=== PATIENT | male | born 1960 | race Caucasian/White ===

== ENCOUNTER 2024-04-11 04:14 | Inpatient (IN) | payer MEDICARE, SELFPAY ==
[2024-04-11] VITALS (32 sets, daily range): BP systolic 98–240; BP diastolic 66–131; BMI 38.9
--- NOTE | 2024-04-11 01:06 | EDRN ---
Addendum entered by Lindsay Thakur RN 04/11/24 02:10:
0115 - Per ER Dr Arnold verbal order at bedside, pt was given 50mcg Fentanyl IVP for sedation Correction 50mcg NOT 100mcg
0116 - Per ER Dr Arnold verbal order at bedside, pt was given another 50mcg Fentanyl IVP for sedation Correction 50mcg NOT 100 mcg
Original Note:
0054 - pt was placed on BiPAP at 18/10 100% FiO2 for severe respiratory distress
0056 - pulse oximeter reading 82% on BIPAP 18/10 100% FiO2
0058 - Per ER Dr Salgado verbal order at bedside, pt given 20mg Etomidate IVP at this time
0059 - Per ER Dr Salgado verbal order at bedside, pt was given 150mg Succinylcholine at this time
0102 - pt was intubated with 7.0 ET tube 24cm at the lip at this time
0110 - EMS stated they spoke with this pts who states this pt has no known allergies and only PMH is hypertension and smoking cigarettes
0113 - Per ER Dr Arnold verbal order at bedside, pt was given 2 mg Ativan IVP for sedation
0115 - Per ER Dr Arnold verbal order at bedside, pt was given 100mcg Fentanyl IVP for sedation
0116 - Per ER Dr Arnold verbal order at bedside, pt was given another 100mcg Fentanyl IVP for sedation
--- NOTE | 2024-04-11 01:09 | ED.GENMED ---
History of Present Illness
General
Chief Complaint: Breathing Problem
Source: family and ambulance crew
Time Seen by Provider: 04/11/24 01:06
History of Present Illness
History of Present Illness:
63-year-old male presents emergency department with reported sudden onset of shortness of breath approximately 45 minutes prior to presentation. Upon medic arrival, patient was tachypneic in moderate respiratory distress. He was initially placed
on nasal cannula and then required nonrebreather. They did try to apply CPAP which was unsuccessful as patient pulled it off. History not available from patient as he is not speaking at this time.
Note Case also discussed with patient's partner, Marta, who called 911. She states that patient is a longtime smoker, does not drink alcohol or use drugs. She is unaware of his prior medical history but states that he 'never' sees a doctor. She
does state that he takes medications, although she does not know what they are for. She was asked to go home to retrieve them which she will do at this time. She states that tonight he turned to her and said that he was having trouble breathing
and that she needed to call for help. This was a rather abrupt onset of symptoms. Patient is retired, inactive,' does not take care of himself'.
Past History
Past History
ED Past Medical History: Other (Unknown at this time)
Social History
Tobacco: Smoker
Alcohol: None
Drug: None
Personal: Partner
Phy Exam
Physical Exam
Physical Exam:
GENERAL: Alert , in severe respiratory distress
EYE: pupils equal and reactive
NECK: Supple, no significant adenopathy.
ENT: o/p clr, mmm.
CARDIAC: Regular rate and rhythm .
LUNGS: Equal breath sounds bilaterally, diffuse wheezing with scattered rhonchi, no stridor
ABDOMEN: Soft, without focal tenderness, no r/g
NEUROLOGICAL: Alert but not following commands (due to respir distress), maee
SKIN: Warm and dry, skin intact.
MUSCULOSKELETAL: 1+ bilat le edema, well perfused.
PSYCH: nonverbal at this time
Scores
Heart Failure Risk
Heart Failure Risk Score: Not Applicable
Course
Orders/Labs/Results
Orders:
Orders
04/11/24 00:51
EKG [Electrocardiogram (*1)] Urgent
Reason for Study: Shortness of Breath
04/11/24 00:52
EKG- Treatment ONCE
CXR [CR Chest Portable - 1 View] Urgent
Comment:
Reason For Exam: short of breath
Reason Study Needs to be Portable: Unable to Transport
04/11/24 00:53
Comprehensive Metabolic Panel Urgent
PTT Urgent
Prothrombin Time Urgent
04/11/24 00:54
Complete Blood Count/With Diff Urgent
Manual Differential Urgent
NT-proBNP Urgent
Troponin I Urgent
04/11/24 00:55
Albuterol Nebs [Ventolin Nebules] 5 mg .ROUTE .STK-MED ONE
04/11/24 01:06
FentaNYL 1,000 MCG/100 ML [Sublimaze] 1,000 mcg in 100 ml IV NOW
Indication:: Deep Sedation
Begin Infusion:: Now
Goal:: RASS </= -3, BIS 40-60, ventilator synchrony
Maximum dose in mcg/hr:: 300
Continue currently infusing dose and titrate:: Yes
Titration Instructions:: Titrate Q30 min until ventilator synchrony, RASS or BIS goal is met.
Titration Instructions:: If RASS >/= -2 or BIS > 60 or ventilator dyssynchrony:
Titration Instructions:: administer bolus dose and increase infusion by 25 mcg/hr.
Titration Instructions:: Administer analgesia bolus dose(s) & titrate analgesia prior to
Titration Instructions:: adjusting sedation.
Over-sedation Instructions:: if BIS < 40 and pt is synchronous with ventilator, decrease infusion by
Over-sedation Instructions:: 25 mcg/hr every 2 hours until BIS = 40-60.
Over-sedation Instructions:: Do not wean infusion to off if patient is receiving a continuous NMBA or
Over-sedation Instructions:: has received a bolus dose of NMBA within the past 3 hours.
Notify provider:: immediately if pt exhibits signs/symptoms of chest wall rigidity,
Notify provider:: hemodynamic instability, or agitation/pain despite maximum dosing.
Additional Instructions:: Patient MUST be mechanically ventilated.
Fentanyl Citrate/Pf [Sublimaze] 100 mcg IV NOW STA
Fentanyl Citrate/Pf [Sublimaze] 50 mcg IV [id number] PRN
04/11/24 01:07
Rocuronium [place] [Rocuronium] 100 mg IV Q1HPRN PRN
04/11/24 01:08
Cardiac Monitoring- Treatment ONCE
04/11/24 01:10
Albuterol Sulfate [Ventolin Nebules] 7.5 mg INH R NOW STA
Dexamethasone Sod Phosphate [Decadron] 10 mg IV NOW STA
Ipratropium/Albuterol Sulfate [Duoneb] 3 ml INH R NOW STA
04/11/24 01:12
Lorazepam [Ativan] 2 mg .ROUTE .STK-MED ONE
04/11/24 01:15
Carboxymethylcellulose [Refresh Celluvisc Gel] 1 drops OPHTH Q12H
04/11/24 01:21
CT Head W/o Iv Contrast Urgent
Comment:
Reason For Exam: resp distress, nonverbal
04/11/24 01:53
Aspirin 300 mg RECTAL NOW STA
Furosemide [Lasix] 40 mg IV NOW STA
04/11/24 01:54
CT Chest Pe Study Urgent
Comment:
Reason For Exam: resp distress
04/11/24 01:55
COVID-19 Antigen Urgent
Source: Nasal Swab
Influenza A+B Rapid Molecular Urgent
ALESSANDRO Source: Nasal Swab
Specimen Description:
04/11/24 01:57
Fentanyl Citrate/Pf [Sublimaze] 100 mcg IV NOW STA
04/11/24 02:00
Flush (0.9% Sodium Chloride) [Flush (Nss)] See Dose Instructions IV PER PROTOCOL
Rocuronium [place] [Rocuronium] 500 mg 0.9% Sodium Chloride 250 ml [Nss] 200 ml IV PER PROTOCOL
04/11/24 02:57
Piperacillin/Tazo 4.5 Gram [Zosyn] 4.5 gram in 100 ml IV NOW
04/11/24 03:37
Admit/Transfer Patient As Directed
Co-Sign Provider:
Level of Care: Inpatient admission
Assign to:: ICU
Physician / Group: Hospitalist
Diagnosis: Acute Respiratory failure
Reason for Hospitalization: Acute respiratory failure
Expected length of stay greater than two midnights?: Yes
ELOS- Estimated Length of Stay in days: 2
I certify the patient meets the requirements for IP care: Yes
04/11/24 03:38
Code Status As Directed
Resuscitation Status: Full Code
PRN Pain Medication Management As Directed
May give lesser potent ordered pain med per pt: Yes
preference::
Protocol:: Medication orders for pain may be administered in a
manner that supports deferring to patient preference
when the pt is:
- Requesting an ordered lesser potent pain medication.
Least to most potent pain medications are defined
as: acetaminophen < NSAID < tramadol < opioids
(morphine, oxycodone, hydromorphone).
- Requesting a lesser dose of the same medication IF
ORDERED.
- Requesting a less intrusive route of administration
if both routes are prescribed by the provider (PO <
IV).
04/11/24 03:45
ABG [Arterial Blood Gas] Stat
%Oxygen/Room Air: 100
04/11/24 04:37
Acetaminophen [Tylenol Oral Solution] 650 mg TUBE Q4HPRN PRN
FentaNYL 1,000 MCG/100 ML [Sublimaze] 1,000 mcg in 100 ml IV PER PROTOCOL
Indication:: Deep Sedation
Begin Infusion:: Now
Goal:: RASS </= -3, BIS 40-60, ventilator synchrony
Maximum dose in mcg/hr:: 300
Continue currently infusing dose and titrate:: Yes
Titration Instructions:: Titrate Q30 min until ventilator synchrony, RASS or BIS goal is met.
Titration Instructions:: If RASS >/= -2 or BIS > 60 or ventilator dyssynchrony:
Titration Instructions:: administer bolus dose and increase infusion by 25 mcg/hr.
Titration Instructions:: Administer analgesia bolus dose(s) & titrate analgesia prior to
Titration Instructions:: adjusting sedation.
Over-sedation Instructions:: if BIS < 40 and pt is synchronous with ventilator, decrease infusion by
Over-sedation Instructions:: 25 mcg/hr every 2 hours until BIS = 40-60.
Over-sedation Instructions:: Do not wean infusion to off if patient is receiving a continuous NMBA or
Over-sedation Instructions:: has received a bolus dose of NMBA within the past 3 hours.
Notify provider:: immediately if pt exhibits signs/symptoms of chest wall rigidity,
Notify provider:: hemodynamic instability, or agitation/pain despite maximum dosing.
Additional Instructions:: Patient MUST be mechanically ventilated.
Guaifenesin Solution [Robitussin] 200 mg TUBE Q4HPRN PRN
Ipratropium/Albuterol Sulfate [Duoneb] 3 ml INH R Q4HPRN PRN
Labetalol HCl [Trandate] 10 mg IV Q6HPRN PRN
Ondansetron Injectable [Zofran] 4 mg IV Q6HPRN PRN
04/11/24 04:37
Echo 2D MMode Color/Doppler Routine
Reason for Study: hypoxic failure, CHF
CARDIOLOGY CONSULT Routine
Consulting Provider: Tony Vizcarra
Was physician already notified: No
Reason for consult: hypoxic respiratory failure, CHF and COPD, unknown prior history
Consult Notification Routine
Specialty to Notify: Cardiology
Date consulting provider notified: 04/11/24
Time consulting provider notified: 08:50
Notified:: Other
Comment: tiger text
Consult Notification Routine
Specialty to Notify: Pulmonary
Date consulting provider notified: 04/11/24
Time consulting provider notified: 08:50
Notified:: Other
Comment: [employer] text
PULMONARY CONSULT Routine
Consulting Provider: Ugo Tejeda
Was physician already notified: No
Reason for consult: acute resp failure on vent
Activity As Directed
Activity Level: Out of Bed-Early Mobility
Gastrointestinal Tubes As Directed
Type: [place] sump
To suction?: No
Irrigate tube?: Yes
Irrigant: Purified/Distilled Water
Frequency: Q4H
Amount in mls: 30
Irrigation Directions: Irrigate Q4H and PRN
I&O [Intake/ Output] As Directed
Frequency: Per unit guidelines
Intake/ Output As Directed
Frequency: Per unit guidelines
Vital Signs As Directed
Frequency: Per unit guidelines
Weight As Directed
Frequency: Daily
Weight As Directed
Frequency: Once
Comment: on admission
Pulse Ox/cont/shift [RESP] Routine
Quantity: 1
Smoking Cessation Counseling [RESP] Routine
Ventilator Initial Settings [RESP] Routine
Tidal Volume: 500
Rate: 14
FIO2: 100
PEEP: 5
Pt Eval And Treat Routine
Activity Level: With Assistance
DX Deep Vein Thrombosis Video Routine
04/11/24 05:17
ABG [Arterial Blood Gas] IN AM
%Oxygen/Room Air: 100
04/11/24 05:22
Basic Metabolic Panel IN AM
Cardiovascular Evaluation IN AM
Complete Blood Count/No Diff IN AM
Hemoglobin A1c [Glycohemoglobin (HgbA1c)] IN AM
Lactic Acid IN AM
Procalcitonin IN AM
PCT Algorithmm Indication: Respiratory
Prothrombin Time IN AM
Troponin I Q6H
MRSA Screen Routine
ALESSANDRO Source: Nose
Specimen Description:
04/11/24 Breakfast
NPO
Allow oral meds: No
Allow clear liquids: No
MethylPREDNISolone PF [Solu-Medrol Pf] 40 mg IV Q6H
04/11/24 06:13
Legionella Urinary Antigen Routine
ALESSANDRO Source: Urine
Specimen Description:
04/11/24 08:00
Budesonide [Pulmicort] 0.5 mg INH R BID
Cefepime HCl [Maxipime] 2,000 mg IV Q8H
Furosemide [Lasix] 40 mg IV BID AT 0800,1600
Ipratropium/Albuterol Sulfate [Duoneb] 3 ml INH R QID
Nicotine [Nicoderm Transdermal] 21 mg TRANSDERM DAILY
04/11/24 11:43
Troponin I Q6H
04/11/24 18:00
Enoxaparin Sodium [Lovenox] 40 mg SC QPM
04/11/24 18:13
Troponin I Q6H
Abnormal Lab Results
04/11/24 04/11/24 04/11/24
00:53 00:54 03:45
WBC 21.9 H 10^3/uL
(4.8-10.8)
RBC 6.12 H 10^6/uL
(4.70-6.10)
Hgb 19.5 H g/dL
(13.0-18.0)
Hct 58.0 H %
(39.0-52.0)
MCV 94.8 H fL
(80.0-94.0)
MCH 31.9 H pg
(27.0-31.0)
MPV 11.1 H fL
(7.4-10.4)
Abs Neuts (Manual) 11.3 H 10^3/uL
(1.4-6.5)
Band Neutrophils 4 H %
(0-3)
Monocytes (Manual) 13 H %
(2-9)
pH 7.15 L*
(7.35-7.45)
pCO2 76 H* mmHg
(35-48)
Sodium 149 H mmol/L
(135-145)
Glucose 160 H mg/dl
(70-99)
ALT 54 H U/L
(0-50)
Troponin I 0.037 H* ng/ml
04/11/24 00:54
04/11/24 00:53
Vital Signs
Initial and Last Documented VS:
Initial Vital Signs
Pulse Pulse Ox
92 82
04/11/24 00:52 04/11/24 00:52
Last Documented Vital Signs
Temp Pulse Resp BP Pulse Ox
98.1 F 108 22 141/62 96
04/13/24 07:57 04/13/24 07:30 04/13/24 07:30 04/13/24 00:04 04/13/24 08:00
Procedures
Intubations
Procedure completed by: judi Arnold
Method of Intubation: glidescope
Tube size (cm): 7.0
Placement confirmed by: auscutation, CXR, capnography and direct visualization
Breath sounds after intubation: equal
Additional information:
Attempted by me, pt suctioned, still not able ot visualize cords...Dr Arnold assisted and was able to intubate
*Critical Care Note
Total Time (30-74mins, 75-104mins- exclusive of procedures): 30
Update Note
Update Note:
Patient presents to the Emergency Department with ___respiratory distress
Number and Complexity of Problems Addressed at the Encounter
� Chronic conditions affecting care:
� Acute Exacerbation and/or Progression of Chronic Illness:
� Differential Diagnosis includes: But not limited to COPD exacerbation, pneumonia, heart failure, ACS, etc. etc.
Amount and/or Complexity of Data to be Reviewed and Analyzed
� I performed an independent evaluation of and my interpretation is:
EKG: Read by me, sinus tachycardia, slight elevations of ST segment in V1 and V2 not consistent with ST RAKESH, T wave inversions laterally
CT:
Xrays:
Laboratory Studies:
Other:
� Review of other/old records reveals: None available
� Clinical information was obtained by an independent historian: yasmani Lozano
� Prescriptions/Medications Considered but not given:
� Further testing considered but not performed:
Risk of Complications and/or Morbidity or Mortality of Patient Management
� Social determinants of health affecting care:
� Discussion with other providers (PCP, Hospitalists, Consultants, etc):
� Escalation of care including admission/observation vs risk of discharge considered: Note: initially tried bipap, however after short trial, no improvement----decision then to intubate.
Further history from Marta his partner 1:54 AM she called me and told me some of the medications he is on which suggest the patient has a history of hypercholesterolemia as he is on a statin as well as a history of hypertension.
ED Attending Note
-
Portions of this chart may have been created with voice recognition software.� Occasional wrong word or��sound alike� substitutions may have occurred due to the inherent limitations of voice recognition software.
Discharge Plan
Departure
Patient Disposition: Admit
Date of Disposition: 04/11/24
Time of Disposition: 03:21
Admit to: ICU
Admit to doctor: scooter
Presentation/result/management discussed w/ accepting MD/DO: Hospitalist
Discharge Problem:
Respiratory failure
Interventions
Interventions:
*ED COVID-19 Vaccine History Last Done: 04/11/24 04:56
*Nursing Disposition Last Done: 04/11/24 04:56
ED- Cardiac Assessment Last Done: 04/11/24 02:15
ED- Pulmonary Assessment Last Done: 04/11/24 02:15
Discharge Date and Time
Discharge Date/Time: 04/11/24 04:57
[2024-04-11 01:14] LABS: ALT (SGPT) 54 U/L (0-50); AST (SGOT) 56 U/L (17-59); Albumin 4.9 g/dl (3.5-5.0); Alkaline Phosphatase 71 U/L (38-126); Blood Urea Nitrogen 14 mg/dl (9-20); Calcium 9.4 mg/dl (8.4-10.2); Carbon Dioxide 26 mmol/L (22-30); Chloride 106 mmol/L (98-107); Glucose 160 mg/dl (70-99); Potassium 3.9 mmol/L (3.5-5.1); Sodium 149 mmol/L (135-145); Total Bilirubin 1.1 mg/dl (0.2-1.3); Total Protein 7.5 g/dl (6.3-8.2); eGFR > 60.00
[2024-04-11 01:20] LABS: INR 1.14; PT 14.5 Sec (11.4-14.6)
[2024-04-11 01:21] LABS: APTT 29.8 Sec (23.4-35.0)
[2024-04-11 01:25] LABS: Hemoglobin 19.5 g/dL (13.0-18.0); Mean Corp Hgb Conc. 33.6 g/dL (33.0-37.0); Mean Corpuscular Hgb 31.9 pg (27.0-31.0); Mean Corpuscular Volume 94.8 fL (80.0-94.0); Mean Platelet Volume 11.1 fL (7.4-10.4); Platelet Count 280 10^3/uL (130-400); Red Blood Cell Count 6.12 10^6/uL (4.70-6.10); White Blood Cell Count 21.9 10^3/uL (4.8-10.8)
[2024-04-11] MEDS: SUBLIMAZE 100 IV ×2 (01:26→05:32)
[2024-04-11 01:28] LABS: NT-proBNP 1740 pg/ml; Troponin I 0.037 ng/ml
[2024-04-11] MEDS: DECADRON 10 MG IV (01:28)
[2024-04-11 01:38] LABS: Absolute Neutrophils -Man Diff 11.3 10^3/uL (1.4-6.5); Band Neutrophils 4 % (0-3); Eosinophils 5 % (0-6); Lymphocytes 26 % (20-51); Monocytes 13 % (2-9); Segmented Neutrophils 48 % (42-75)
[2024-04-11 01:39] LABS: Atypical Lymphocytes 4 %; Normal RBC Morphology Yes; Platelets Checked Yes; Total Cells Counted 100
[2024-04-11] MEDS: DUONEB 3 ML INH ×5 (01:53→19:46)
[2024-04-11] MEDS: VENTOLIN NEBULES 7.5 MG INH (01:53)
[2024-04-11] MEDS: SUBLIMAZE 100 MCG IV (02:05)
[2024-04-11] MEDS: LASIX 40 MG IV ×3 (02:09→15:50)
[2024-04-11 02:17] LABS: COVID-19 Antigen Negative (Negative)
[2024-04-11] MEDS: SUBLIMAZE 50 MCG IV (02:40)
[2024-04-11] MEDS: ZOSYN 100 IV (03:04)
[2024-04-11 03:56] LABS: HCO3 26.5 mmol/L (21-28); O2 Saturation % 97.8 % (94-98); PO2 99 mmHg (83-108)
[2024-04-11 03:58] LABS: O2 Therapy 100%; PCO2 76 mmHg (35-48); pH 7.15 (7.35-7.45)
--- NOTE | 2024-04-11 04:09 | HPS.HSE ---
Family Physician
-
Family Physician: NOT KNOW UNKNOWN - PT DOES
Chief Complaint
-
Respiratory distress
History of Present Illness
Patient was intubated at the time I saw him. There were no available next of kin or caregivers. He was unable to provide any history. History obtained from EMS, ED records.
Patient is a to have a history of longstanding smoking, hypertension, poor follow-up and otherwise unknown. He has been living with a significant other recently. She is unaware of the full-scale health status but states that he smokes, does not
drink and does not see medical research scientist. He does take medications but she is unsure what and how much. She is to return to the hospital with the bottles of his current medications/prescriptions. He has no knowledge of any recent
hospitalizations, antibiotic use or exacerbations of underlying chronic conditions.
She stated that appeared to be in acute onset of respiratory problems. She awoke in and stated that she had trouble breathing and she needed to call for help immediately. When EMS arrived he was conversational but was obviously in some respiratory
distress. He was initially placed on oxygen but continued to have desaturation and was placed on nonrebreather. He was trialed on BiPAP but patient did not tolerate it was combative and pulling of lines and tubes. He was placed back on the
nonrebreather and immediately brought to the emergency department. Initial pulse ox on nonrebreather was about 82 to 85% on arrival. Patient was rapidly intubated at around 1 AM. Assessment during intubation showed no copious pulmonary aspirate.
He was obviously initially hypertensive to 200 systolic prior to intubation.
ECG showed normal sinus rhythm at a rate of 94 left atrial enlargement, T wave inversions in V4 through 6 and poor R wave progression. Initial troponin was 0.037, BNP was elevated at 1740. His COVID test was negative, influenza test was negative.
CT of the head showed no acute intracranial process. He CBC showed white count of 21,000 with 4% bands. Hemoglobin was 19.5 with platelet count of 280. Chemistry showed sodium of 149 potassium 3.9 bicarb of 26 BUN 49 creatinine 1.2 with a glucose
of 160. LFTs were unremarkable.
Chest x-ray shows some linear reticular opacities bilaterally. He had a CT PE which was negative for PE, , There was mild CHF with small bilateral pleural effusions, he had bilateral dependent upper and lower lobe opacities possibly atelectasis,
alveolar edema multifocal infection. There was a small pericardial effusion. Cardiomegaly was noted with severe coronary calcifications.
Status post intubation in the emergency department. Oxygenation 100% FiO2 is around 96%. Blood pressure was stable to elevated on fentanyl drip. ABG was 7.
Medical History
Past Medical History
Past Medical History: Reports Other (Unable to determine at this time)
Past Surgical History: Reports Other (Unable to determine)
Social History
Tobacco: Smoker
Alcohol: None
Drug: None
Personal: Partner
Living: With Family
Employment: Other (Unknown)
Family History
Family History: Unable to Obtain
Allergies / Home Medications
Allergies reflects when Allergies were last updated in [facility].
Home Medications with original date entered in [facility]
Allergy/Medication List:
Allergies
Allergy/AdvReac Type Severity Reaction Status Date / Time
No Known Allergies Allergy Verified 04/11/24 01:31
NO KNOWN HOME MEDICATIONS
If medication reconciliation has not been performed, why?: Unresponsive
Review of Systems
-
Unable to obtain full review of systems at this time due to: Patient Intubation
Physical Exam
Vital Signs
Vital Signs
Temp Pulse Resp BP Pulse Ox
97.4 F 115 15 172/99 95
04/11/24 01:51 04/11/24 03:15 04/11/24 03:15 04/11/24 03:15 04/11/24 03:15
Physical Exam
General: Well Nourished and Intubated
HEENT: NormoCephalic, Anicteric, Moist mucous membranes, Atraumatic and No Ptosis
Respiratory: Clear and Other (prolonged expiratory phase on Vent)
Cardiac: S1/S2 and Tachycardia
Breast: Deferred by me
GI: Soft, Non Tender, Non Distended and Normal Bowel Sounds
Rectal: Deferred by Provider
Genito-urinary: Deferred by me
Musculoskeletal: No Clubbing, No Cyanosis and No Edema
Skin: Warm
Neuro: Sedated
Hematologic/Lymphatic: No Lymphadenopathy
Laboratory Results
-
04/11/24 00:54
04/11/24 00:53
Laboratory Results
PT 14.5 Sec (11.4-14.6) 04/11/24 00:53
INR 1.14 04/11/24 00:53
APTT 29.8 Sec (23.4-35.0) 04/11/24 00:53
pH 7.15 (7.35-7.45) L* 04/11/24 03:45
pCO2 76 mmHg (35-48) H* 04/11/24 03:45
pO2 99 mmHg (83-108) 04/11/24 03:45
HCO3 26.5 mmol/L (21-28) 04/11/24 03:45
Total Bilirubin 1.1 mg/dl (0.2-1.3) 04/11/24 00:53
AST 56 U/L (17-59) 04/11/24 00:53
ALT 54 U/L (0-50) H 04/11/24 00:53
Alkaline Phosphatase 71 U/L (38-126) 04/11/24 00:53
Troponin I 0.037 ng/ml H* 04/11/24 00:54
Data Reviewed
-
Diagnostic Radiology: Image Personally Visualized and interpreted
CT Scan: Report Reviewed by me
Medical Tests (Nuc Med, Echo, EKG etc): Image Personally Visualized and interpreted
Lab Data: Labs Reviewed by me
Impression/Plan
-
IMPRESSION:
63-year-old with history at least of hypertension otherwise unknown past medical history who presented with acute hypoxic hypoxic respiratory failure requiring intubation. He appears to progressed rapidly from complaints of shortness of breath to
severe hypoxia requiring intubation. He has history of smoking, hypercapnia and hypoxia, chest tightness-on the ventilator suggest a component of airway disease likely COPD exacerbation stemming from either infectious or pulmonary edema. The rapid
onset and the arrival quite hypertensive also raises the possibility of flash pulmonary edema in the setting of uncontrolled hypertension/hypertensive emergency. His troponin is 0.037, ECG without acute ischemic changes or arrhythmia makes NSTEMI
from primary acute coronary obstruction less likely. He does have findings consistent with congestive heart failure including pulmonary edema, bilateral effusion, pericardial effusion and elevated BNP. Similarly he also has evidence of possible
infection triggering the COPD exacerbation and driving into heart failure. He has significant leukocytosis with 4% bands. Bilateral pulmonary opacities could be infectious in origin. There was no PE on the CT PE study. COVID-19 was negative.
Influenza was negative.
PLAN:
1. COPD/PNA - COPD exacerbation with possible multifocal pneumonia. Ventilated with 1 risk factor for resistant gm negative and no known MRSA risk factors at this time. Airmovement appeared to improve after 1 hour of continous nebs.
- admit to icu
- start cefepime 1g q 8 for now
- sent sputum for gm stain and culture, mrsa screen
- blood cultures if spike fever
- legionella ag
- Solumedrol 40 q 6, DUONEB q 6 H and q 4 prn, started ICS.
- SaO2 goal > 92, pH > 7.3
- GI PPX, Sedation on fentanyl, consider precedex
- advanced nursing professor consulted
2. CHF - Likely long standing hypertension, possibly flash pulmonary edema. BNP 1700. Trop 0.037. ECG NSR, TWI in V4-6. Pericardial effusion w/o tamponade. Small pleural effusions. No significant peripheral edema.
- trend troponin
- lasix 40mg iv q 12 for now, daily weights with i&os
- check tsh, lipid panel, a1c
- echo
- cardiology consultation
3. Hypertensive emergency - No acute intracranial process or focal deficit
- lasix as above
- labetolol prn for now, goal SBP < 180 for now
- cardiology consulted
4. Tobacco dependence
- nicotine patch
DVT PPX - lovenox sq
Code status - Full Code provisionally
Note - Significant order to return to hospital with additional history that may help disposition.
[2024-04-11 05:27] LABS: B.E. -2.3 mmol/L; HCO3 25.1 mmol/L (21-28); O2 Saturation % 91.7 % (94-98); PCO2 51 mmHg (35-48); PO2 61 mmHg (83-108)
[2024-04-11 05:29] LABS: O2 Therapy 100%
[2024-04-11] MEDS: DIPRIVAN 100 IV ×5 (05:31→23:43)
--- NOTE | 2024-04-11 05:43 | PTCARENOTE ---
Pt. arrived from ED approx 0500.
Arrived on 250 mcg fentanyl, RASS +3, sitting up in bed.
RX ordered and applied, fent decreased to 50 mcg, Diprivan ordered and initiated at 10 mcg.
Salg[place] inserted, Labs sent including ABG, [place] placed, NG tube placed.
Intubated in ED, ABG showed acidosis, vent settings changed to A/C 20/500/8/100. [id number].
[2024-04-11 05:44] LABS: Hematocrit 48.5 % (39.0-52.0); Hemoglobin 16.7 g/dL (13.0-18.0); Mean Corp Hgb Conc. 34.4 g/dL (33.0-37.0); Mean Corpuscular Hgb 30.5 pg (27.0-31.0); Mean Corpuscular Volume 88.5 fL (80.0-94.0); Mean Platelet Volume 10.4 fL (7.4-10.4); Platelet Count 214 10^3/uL (130-400); Red Blood Cell Count 5.48 10^6/uL (4.70-6.10); Red Cell Dist. Width 13.9 % (11.5-14.5); White Blood Cell Count 13.8 10^3/uL (4.8-10.8)
--- NOTE | 2024-04-11 05:48 | PTCARENOTE ---
Unable to complete Handoff validation w/ off going ED RN due to declining patient status, pt. immediately placed on ICU monitor upon arrival.
[2024-04-11 05:54] LABS: INR 1.11; PT 14.1 Sec (11.4-14.6)
[2024-04-11 06:05] LABS: Lactic Acid 1.3 mmol/L (0.7-2.0)
[2024-04-11 06:06] LABS: Blood Urea Nitrogen 16 mg/dl (9-20); Calcium 8.6 mg/dl (8.4-10.2); Carbon Dioxide 24 mmol/L (22-30); Chloride 107 mmol/L (98-107); Estimated Creatinine Clearance 86 ml/min; Glucose 135 mg/dl (70-99); HDL Cholesterol 39 mg/dl; LDL Cholesterol, Calculated 114 mg/dl; Potassium 4.5 mmol/L (3.5-5.1); Sodium 144 mmol/L (135-145); Total Cholesterol 174 mg/dl (50-199); Triglyceride 107 mg/dl (10-149); Triglycerides 107 mg/dl (10-149); Very Low Density Lipoprotein 21 mg/dl (0-30); eGFR > 60.00
[2024-04-11 06:17] LABS: Troponin I 0.237 ng/ml
[2024-04-11 06:19] LABS: Procalcitonin 0.15 ng/ml (0.0-0.25)
--- NOTE | 2024-04-11 06:22 | W.PN.UPDATE ---
Update Note
Progress Note Update
Procedure Note: Arterial Line�
� Right Wrist Arrow 20 (08/18)�
Diagnosis:��Acute respiratory Failure
IV Line Comments: Uneventful Procedure�
Ishmael's test completed pre-procedure: Yes�
A-Line Comments: Sterile technique as per standard protocol, Ultrasound guided insertion�
Functioning A-line in situ: Yes�
A-line Insertion Start Time:��06
A-line in at:��0610
[2024-04-11 06:34] LABS: TSH Reflex To Free T4 0.77 uIU/ml (0.47-4.68)
--- NOTE | 2024-04-11 06:35 | PTCARENOTE ---
NG tube placed, waiting CXR.
[2024-04-11] MEDS: MAXIPIME 2000 MG IV ×2 (07:26→15:50)
[2024-04-11] MEDS: PROTONIX IV 40 MG IV (07:26)
[2024-04-11] MEDS: SOLU-MEDROL PF 40 MG IV ×3 (07:26→20:25)
[2024-04-11] MEDS: NICODERM TRANSDERMAL 21 MG TRANSDERM (07:27)
[2024-04-11] MEDS: STERILE WATER FOR INJECTION 10 ML IV ×2 (07:27→15:50)
--- NOTE | 2024-04-11 07:44 | CON.CAR ---
Addendum entered and electronically signed by Farooq Oviedo MD 04/11/24 12:40:
ECHO 04/11/24:
- Left ventricle is moderately dilated. Mild concentric left ventricular hypertrophy.
- Moderately- severely reduced left ventricular systolic function. Global hypokinesis. LVEF 30-35%
- Stage II diastolic dysfunction suggestive of abnormal relaxation and increased filling pressures.
- Mildly dilated left atrium.
- Mild to moderate mitral regurgitation.
- Mild to moderate aortic regurgitation
- Small pericardial effusion without evidence of hemodynamic compromise.
- Pleural effusion present.
Addendum entered and electronically signed by Farooq Oviedo MD 04/11/24 09:36:
Admitted April 10, 2024 with acute onset shortness of breath hypoxia and respiratory failure requiring ventilatory support/intubation and mechanical ventilation.
Additionally on presentation markedly hypertensive/hypertensive emergency.
Cardiology has been consulted over concern for congestive heart failure as well as hypertensive emergency.
No further history is available from the patient as he is intubated and sedated.
On exam he is intubated and sedated appears comfortable.
Regular rate and rhythm with normal S1 and S2, no S3 no S4 there is a grade 1/6 apical holosystolic murmur no rubs
Lungs coarse breath sounds bilaterally without wheezes
Abdomen is soft and nondistended
Extremities show +1 bilateral lower extremity edema
ECG 1 (presentation) sinus rhythm with biatrial abnormality and inferolateral ST abnormality concerning for inferolateral ischemia
ECG 2 sinus rhythm with biatrial enlargement, LVH nonspecific ST and T wave abnormalities inferolateral ST abnormalities have improved
First troponin 0.237
Second troponin 0.237
proBNP 1740
CTA chest no definite pulmonary embolism, there is moderate pericardial effusion described, there is bilateral oral opacification representing subsegmental atelectasis with small pleural effusions. Possible pneumonia
He is critically ill
With intubation and mechanical ventilation as well as a single dose of 40 mg IV Lasix, blood pressure has improved/normalized.
It is likely that marked hypertension was his physiologic response to marked dyspnea. Follow BP and can treat hypertension on an as-needed basis
He likely has at least some component of heart failure and I would continue IV Lasix today.
We will obtain echocardiogram today to evaluate pericardial effusion and to assess for any significant underlying structural heart disease which may be contributing.
Trend troponins
Consideration for eventual ischemic evaluation
Critical care time 55 min
Original Note:
Consultation
Consultation Request
Date/Time Consultation Performed: 04/11/24
Requesting Provider: Dr. Butler
Performing Provider: Bianca Palafox PA-C for Dr. Parag Oviedo
Reason for Consultation: respiratory failure, HTN
Medical History
-
Chief Complaint: SOB
History of Present Illness:
Patient is a 63 yo M who does not routinely follow with doctors per report who presented to ER by EMS for evaluation of SOB. He apparently turned to his roommate/partner last evening and told her he was having trouble breathing and she needed to
call 911. Upon EMS arrival patient was noted to be hypoxic, initially placed on nasal cannula, then NRB. CPAP/Bipap was attempted however patient was unable to tolerate. He was then placed back on NRB and subsequently intubated in ER. He is on
medication for HTN, HLD as OP and has significant smoking history. ProBNP 1700. Also with HTN emergency and elevated troponin. Cardiology consulted for evaluation.
PMH:
HTN
HLD
Tobacco use
Past Medical History
Past Medical History: Other (in HPI)
Social History
Tobacco: Smoker
Alcohol: None
Drug: None
Living: With Roomate (/significant other)
Employment: Retired
Family History
Family History: Unable to Obtain
Allergies / Home Medications
Allergy/AdvReac Type Severity Reaction Status Date / Time
No Known Allergies Allergy Verified 04/11/24 01:31
Review of Systems
-
Unable to obtain full review of systems at this time due to: Patient Intubation
Physical Exam
Vital Signs
Temp Pulse Resp BP Pulse Ox
99 F 83 20 118/69 98
04/11/24 05:04 04/11/24 06:30 04/11/24 06:30 04/11/24 06:00 04/11/24 07:27
Lab Results
04/11/24 05:22
04/11/24 05:22
Troponin I 0.237 ng/ml H* D 04/11/24 05:22
Eut-R-Ooykqlfirfr Pept 1740 pg/ml 04/11/24 00:54
Physical Exam
General: No Apparent Distress and Intubated
HEENT: Normocephalic, Anicteric and Moist Mucous Membranes
Respiratory: Clear and Non Labored Respirations
Cardiac: S1/S2 and Regular Rhythm
GI: Soft, Non Tender, Non Distended and Normal Bowel Sounds
Musculoskeletal: No Clubbing, No Cyanosis and Edema (Trace of B/L LE)
Skin: Warm and Dry
Neuro: Sedated
Impression / Plan
-
Primary Art Critic: none
Assessment:
Presentation with SOB
Acute hypoxic respiratory failure, intubated in ER 04/10/24
Leukocytosis
Suspected PNA/COPD exacerbation
Concern for acute CHF/flash pulm edema
Hypertensive emergency
Elevated troponin
HTN
HLD
Tobacco use
Plan:
-Patient presented with SOB and hypoxia requiring intubation in ER
-remains intubated, sedated at present so history limited at this time
-head CT negative for acute abnormality
-chest CT pending
-proBNP 1740. being diuresed with IV lasix 40mg BID
-trop uptrending, follow to peak.
-EKG from EMS reviewed, SR with possible lateral ST abnormality. will repeat now
-check echo
-will require eventual ischemic evaluation
-received rectal asa in ER. continue asa as able
-LDL 114. would re-initiate statin therapy when able
-follow BPs, currently on low side.
-check TSH
-treatment of PNA per primary service. covid negative
-d/w nursing
Data Reviewed
-
EKG: Tracing Personally Visualized and interpreted
Radiology: Report Reviewed by me
CT Scan: Report Reviewed by me
Labs: Labs Reviewed by me
Old Records: Reviewed
--- NOTE | 2024-04-11 08:30 | PTCARENOTE ---
Rec'd pt at 0700. Pt sedate on Propofol/Fentanyl gtts on vent. Opens eyes and nods head appropriately to verbal stimuli. Monitor SR. Right radial a-line zeroed. fio2 decreased to 80%, pox 97%. +BS, abd soft/nt. [place] sump clamped, flushed as per
orders. Salgado draining yellow urine. Pt repositioned.
--- NOTE | 2024-04-11 08:41 | CON.INTV ---
Consultation
Consultation Request
Date/Time Consultation Requested: 04/11/2024436
Date/Time Consultation Performed: 04/11/2024831
Requesting Provider: Dr. Butler
Performing Provider: Dr. Tejeda
Reason for Consultation: Hypoxia on ventilator
Medical History
-
Chief Complaint: Shortness of breath
History of Present Illness:
63-year-old male tobacco smoker with a past medical history of hypertension + hyperlipidemia who presented with sudden onset of shortness of breath. No chest pain reported. EMS arrived and patient was very agitated and even removed 2 IVs. He was
placed onto CPAP and tried to remove that mask as well. He was given aspirin albuterol en route and was tolerating 15 L/min via NRB with saturations of 92%. He reportedly had COVID-19 two months ago. History obtained from the patient significant
other and medical records. She apparently awoke and overnight prior to arrival and found him having significant shortness of breath and nominal and was called. He was intubated in the ER due to continued respiratory distress. Initial vitals in
the ER showed he was hypertensive to 231/116, saturating 85% on BiPAP, and heart rate 92. Once he was intubated saturations improved to 100%. Initial labs showed leukocytosis of 21.9, Hb 19.5, respiratory acidosis with pH 7.15, pCO2 76, serum
bicarbonate level 26, serum sodium 149, glucose 160, initial troponin 0.037, proBNP elevated at 1740, and procalcitonin negative at 0.15. Urinalysis showed +1 leukocyte esterase and 11�15 urine WBC. COVID-19 antigen was negative, as well as flu
A/B (negative). CXR obtained showed diffusely prominent interstitial markings likely due to interstitial edema versus pneumonitis. CT head showed no acute intracranial abnormality. CTA chest showed no central PE (limited study) with subsegmental
atelectasis with small pleural effusions and bilateral opacification with cardiomegaly, CAD and a moderate pericardial effusion. In the ER he was given albuterol, DuoNebs, Decadron, Lasix 40 mg IV x 1, Zosyn, and then sedated with fentanyl. He was
then brought to the ICU for further care and performance improvement director services consulted for additional management/recommendations.
When I saw this patient, he was intubated on AC/VC at 20/500/8/50%, with PIP: 28 cmH2O, VTe 5 to 1 cc and breathing at 20 breaths/min. Heart rate currently 92, BP via right radial A-line: 146/57 and saturating 92%. Currently sedated on propofol at
20 mcg/kg/min + fentanyl at 50mcg/hr. He easily awakens and even tries to write down his thoughts on a piece of paper. He is in no acute distress.
PMHx: Tobacco smoking history, hypertension, hyperlipidemia, history of COVID-19 reportedly in January 2024
PSHx: Unobtainable
Past Medical History
Past Medical History: Other (Above as per HPI)
Past Surgical History: Other (Above as per HPI)
Social History
Tobacco: Smoker
Alcohol: None
Drug: None
Living: Other (Significant other)
Family History
Family History: Unable to Obtain
Allergies / Home Medications
Allergies
Allergy/AdvReac Type Severity Reaction Status Date / Time
No Known Allergies Allergy Verified 04/11/24 01:31
Review of Systems
-
Unable to Obtain full review of systems at this time due to: Patient Intubation
Vitals / Labs / Diagnostic Testing
Vital Signs
Temp Pulse Resp BP Pulse Ox
97.5 F 81 20 118/69 96
04/11/24 08:07 04/11/24 08:45 04/11/24 08:45 04/11/24 06:00 04/11/24 08:45
Lab Data
04/11/24 05:22
04/11/24 05:22
Laboratory Results
04/11/24 04/11/24 04/11/24
00:53 03:45 05:17
PT 14.5
INR 1.14
APTT 29.8
pH 7.15 L* 7.30 L
pCO2 76 H* 51 H
pO2 99 61 L
HCO3 26.5 25.1
O2 Delivery Level 100% 100%
04/11/24
05:22
PT 14.1
INR 1.11
APTT
pH
pCO2
pO2
HCO3
O2 Delivery Level
Microbiology
04/11/24 06:13 Urine Legionella Urinary Antigen - Final
Negative for Legionella pneumophila Serogroup 1 antigen.
A negative result does not rule out the possiblity of
Legionella infection due to other serogroups or species of
Legionella. Clinical correlation is recommended.
04/11/24 01:55 Nasal Swab Influenza Types A & B ([facility]) - Final
Negative for Influenza A & B, NAAT
Negative results must be combined with clinical observations
and patient history.
Nucleic Acid Amplification test (NAAT)performed on the
[employer] NOW platform.
Diagnostic Testing:
Physical Exam
-
HEENT: Normocephalic, Anicteric and Other (ETT in place)
Cardiovascular: S1/S2 and Peripheral Edema (trace LE edema b/l)
Respiratory: Wheeze (negative), Rales (bilateral), Rhonchi (negative), Non-Labored Respirations and Other (Mechanical breath sounds heard bilaterally)
GI: Soft, Non Distended, Non Tender and Normal Bowel Sounds
Neurology: Tremors (negative) and Other (Sedated but easily arousable and nodding his head yes or no to questions)
Skin: Warm and Dry
General: Respiratory Distress (negative), Comfortable, Chills (negative) and Sweats (negative)
Assessment
-
Assessment: 63-year-old male tobacco smoker with a past medical history of hypertension + hyperlipidemia who presented with sudden onset of shortness of breath. No chest pain reported. EMS arrived and patient was very agitated and even removed 2
IVs. He was placed onto CPAP and tried to remove that mask as well. He was given aspirin albuterol en route and was tolerating 15 L/min via NRB with saturations of 92%. He reportedly had COVID-19 two months ago. History obtained from the patient
significant other and medical records. She apparently awoke and overnight prior to arrival and found him having significant shortness of breath and nominal and was called. He was intubated in the ER due to continued respiratory distress. Initial
vitals in the ER showed he was hypertensive to 231/116, saturating 85% on BiPAP, and heart rate 92. Once he was intubated saturations improved to 100%. Initial labs showed leukocytosis of 21.9, Hb 19.5, respiratory acidosis with pH 7.15, pCO2 76,
serum bicarbonate level 26, serum sodium 149, glucose 160, initial troponin 0.037, proBNP elevated at 1740, and procalcitonin negative at 0.15. Urinalysis showed +1 leukocyte esterase and 11�15 urine WBC. COVID-19 antigen was negative, as well as
flu A/B (negative). CXR obtained showed diffusely prominent interstitial markings likely due to interstitial edema versus pneumonitis. CT head showed no acute intracranial abnormality. CTA chest showed no central PE (limited study) with
subsegmental atelectasis with small pleural effusions and bilateral opacification with cardiomegaly, CAD and a moderate pericardial effusion. In the ER he was given albuterol, DuoNebs, Decadron, Lasix 40 mg IV x 1, Zosyn, and then sedated with
fentanyl. He was then brought to the ICU for further care and performance improvement director services consulted for additional management/recommendations.
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
Impression:
#Acute respiratory failure with hypoxia + hypercapnia due to acute pulmonary edema from hypertensive crisis + ADHF now on mechanical ventilation
#Leukocytosis likely reactive
#Acute pulmonary edema likely due to hypertensive crisis in the setting of acute decompensated heart failure/combined acute HFrEF with diastolic heart failure
#Moderate-size pericardial effusion with small bilateral pleural effusions
#Prediabetes (HbA1c: 5.8 on 04/11/2024)
#Elevated troponin likely due to demand ischemia with type II ND; unable to rule out NSTEMI
#Active tobacco use
#Centrilobular emphysema with suspected COPD
#History of COVID-19 (reported to be positive in 01/2024)
#History of hypertension
#History of hyperlipidemia
Plan:
- On arrival his BP was in the 220-230s1/110s
- This likely was the culrprit for his acute pulmonary edema with sudden severe respiratory distress
- There may be a component of acute decompensated heart failure on top of his HTN-crisis
- Reduce SBP by 25% over this first 24 hrs, then would reduce further from there with eventual BP goal of <140/90
- Would keep goal SBP for today between 160-180mmHg
- Maintain MAP>65
- Continue mechanical ventilation with daily SAT/SBT if clinically appropriate
- Titrate FiO2 and PEEP to keep SpO2 >90-94%
- maintain plateau pressure <30
- Adjust ventilator as needed to optimize pH; check blood gas daily and CXR to assess ETT position
- Diurese and maintain net negative fluid balance, with BP goals as above
- Lightly sedate with goal RASS -1 to -2
- Maintain SpO2 >90-94%
- Continue DuoNebs QID with flovent
- Continue systemic steroids given high suspicion for COPD --> although his current clinical status is due to ADHF and not acute COPD exacerbation, so will try to wean off steroids fairly rapidly
- Low suspicion for pneumonia given his procalcitonin is 0.5; procalcitonin however can sometimes be falsely low initially and then can rise after 24-48 hours so would recheck another level tomorrow
-Given that his urinalysis positive with +1 leukocyte esterase would continue with antibiotics for now with cefepime
-Urine antigens for Legionella + strep pneumonia are both negative
- Continue trending troponin level until it peaks
- Check echo --> shows moderately�severely reduced LVEF with global hypokinesis, EF 30-35% with stage II diastolic dysfunction, mild�moderate MR, mild�moderate AI with small pericardial effusion without evidence of tamponade
- Cardiology consulted and recommendations appreciated
- Replete electrolytes with K>4, Mg>2
- Nicotine patch
- Maintain euglycemia with goal BG 140-180
- Trend H/H and transfuse if needed to keep Hb>7g/dL; keep plt>20k, unless there is concern for bleeding then keep plt>50k
- DVT ppx: LMWH
Critical care statement: A total of 40 minutes of critical care time was provided for this patient today. This includes management of unstable vital signs, evaluation of the patient at bedside, reviewing the patient's pertinent medical records
including radiographs, microbiology, laboratory evaluations, and discussion with primary team, consultants, pharmacy, nutrition, physical therapy, case management, charge nurse, critical care nursing, and respiratory therapy.
Data:
CTA Chest 04/11/2024:
Extremely limited study, as described, without findings to confirm pulmonary embolism to the level of the proximal segmental branches bilaterally.
Bilateral opacification most likely representing subsegmental atelectasis with small pleural effusions. Pneumonia cannot be excluded.
Cardiomegaly, coronary artery calcifications and moderate pericardial effusion.
Enlarged heterogeneous thyroid gland, left lobe larger in size than right.
[2024-04-11 10:19] LABS: Urine Albumin Negative (Neg - Trace); Urine Bilirubin Negative (Negative); Urine Character Clear (Clear); Urine Color Yellow; Urine Glucose Negative (Negative); Urine Ketone Negative (Negative); Urine Leukocyte 1+ (Negative); Urine Nitrite Negative (Negative); Urine Occult Blood Trace (Negative); Urine Urobilinogen Negative (Neg - 1+)
[2024-04-11 10:22] LABS: Glycohemoglobin (HgbA1c) 5.8 % (4.0-5.6)
[2024-04-11 11:01] LABS: Urine Bacteria Few (Negative)
--- NOTE | 2024-04-11 11:14 | PTCARENOTE ---
ECHO being done at bedside. No changes in assessment.
--- NOTE | 2024-04-11 12:38 | W.PN.HOSP.TC ---
Today's Communication/Plan
-
Monitor vital signs
see plan
Intubated and sedated
Continue with antibiotics for now, wean steroids
Lasix
Echocardiogram today
Nonbillable note
Assessment / Plan
Assessment / Plan
General: Well Nourished and Intubated
HEENT: NormoCephalic, Anicteric, Moist mucous membranes, Atraumatic and No Ptosis
Respiratory: Ventilated breath sounds, intubated
Cardiac: S1/S2,RRR
GI: Soft, Non Tender, Non Distended and Normal Bowel Sounds
Musculoskeletal: No Edema
Neuro: Sedated
psych: calm
Acute hypoxic respiratory failure likely multifactorial secondary to acute pulmonary edema from hypertensive crisis and COPD/emphysema exacerbation along with possible pneumonia
Currently intubated and sedated, vent management per pulmonary
wean steroids as tolerated
cw abx for now
- sent sputum for gm stain and culture, mrsa screen
- blood cultures if spike fever
- legionella ag neg; check strep
wean sedation as tolerated
Monitor in ICU
Acute CHF - Likely long standing hypertension, possibly flash pulmonary edema. BNP 1700. Trop 0.037. ECG NSR, TWI in V4-6. Pericardial effusion w/o tamponade. Small pleural effusions. No significant peripheral edema.
- trend troponin
Continue with IV Lasix, echocardiogram 04/11 to assess pericardial effusion
Cardiology following
Prediabetes
A1c 5.8
Monitor
3. Hypertensive emergency - No acute intracranial process or focal deficit
Does not appear to be compliant with medications
- lasix as above
- labetolol prn for now, goal SBP < 180 for now
- cardiology follow
Tobacco dependence
- nicotine patch
DVT PPX - lovenox sq
Code status - Full Code provisionally
Anticipated Discharge: > 48 hours
Subjective/Interval History
-
Date of Service: April 11, 2024
Intubated
Objective Data
-
Labs:
Laboratory Results
04/11/24 04/11/24 04/11/24
00:53 00:54 03:45
WBC 21.9 H
Hgb 19.5 H
Hct 58.0 H
Plt Count 280
PT 14.5
INR 1.14
APTT 29.8
HCO3 26.5
Sodium 149 H
Potassium 3.9
Chloride 106
Carbon Dioxide 26
BUN 14
Creatinine 1.2
Glucose 160 H
Calcium 9.4
Total Bilirubin 1.1
AST 56
ALT 54 H
Alkaline Phosphatase 71
04/11/24 04/11/24
05:17 05:22
WBC 13.8 H
Hgb 16.7
Hct 48.5
Plt Count 214 D
PT 14.1
INR 1.11
APTT
HCO3 25.1
Sodium 144
Potassium 4.5
Chloride 107
Carbon Dioxide 24
BUN 16
Creatinine 1.2
Glucose 135 H
Calcium 8.6
Total Bilirubin
AST
ALT
Alkaline Phosphatase
Vital Signs:
Vital Signs
Temp Pulse Resp BP Pulse Ox
97.4 F 84 20 118/69 97
04/11/24 11:32 04/11/24 11:58 04/11/24 11:58 04/11/24 06:00 04/11/24 11:58
I&O
04/10/24 04/11/24 04/12/24
06:59 06:59 06:59
Intake Total 181.2 / 181.2
Output Total 2395 / 2395
Balance -2213.8 / -2213.8
--- NOTE | 2024-04-11 16:10 | CM ---
Patient intubated with NGT
Dx: Acute resp failure
Hx: +smoker, HTN, HDL, poor follow up with physicians
IA completed. Information obtained by brother Kennedy from [place] who was visiting patient.
States he lives in a [address] condo with his room mate Marta Rose
PLOF: Independent, does not use assistive device, driving
Stated he recently returned from a trip to [place], he stated he had COVID there.
Stated that the patient was originally from [place] & had a PCP in [place], [place] named Dr. Bass
No pharmacy noted.
Noted patient self-pay, no ins card entered - LM with [facility] to assist with insurance.
PT eval ordered
PLAN: CM to continue to follow as patient progresses.
--- NOTE | 2024-04-11 16:33 | PTCARENOTE ---
Pt's brothers in to visit, updated. No changes in pt assessment, Fio2 down to 50%, pox 94%.
[2024-04-11] MEDS: LOVENOX 40 MG SC (17:04)
--- NOTE | 2024-04-11 19:22 | PTCARENOTE ---
Assumed care of pt approx 1900.
Remains Intubated/Sedated. Sedation as follows
-Diprivan 20mcg
-fentanyl 50 mcg
Trending blood pressure off of Arterial line w/ correlation of NIBP. SBP goal of 160-180.
Normocephalic/Atraumatic. Focally intact, neuro assessment altered due to sedation, RASS -1, GCS 13T.
Normothermic, Permissive Hypertensive, pulses present, NSR w/o ectopy.
[2024-04-12] VITALS (9 sets, daily range): BP systolic 148–193; BP diastolic 66; BMI 38.6
[2024-04-12 00:05] LABS: B.E. 0.9 mmol/L; HCO3 25.3 mmol/L (21-28); Ionized Calcium 1.18 mMOL/L (1.15-1.33); O2 Saturation % 98.8 % (94-98); PCO2 39 mmHg (35-48); PO2 104 mmHg (83-108); Potassium 3.6 mMOL/L (3.5-5.1); Sodium 137 mMOL/L (136-145); pH 7.42 (7.35-7.45)
[2024-04-12] MEDS: MAXIPIME 2000 MG IV ×4 (00:37→23:57)
[2024-04-12] MEDS: STERILE WATER FOR INJECTION 10 ML IV ×4 (00:38→23:57)
[2024-04-12] MEDS: SUBLIMAZE 100 IV (02:05)
[2024-04-12] MEDS: DIPRIVAN 100 IV ×3 (02:05→20:54)
--- NOTE | 2024-04-12 02:14 | PTCARENOTE ---
ABG completed, Fio2 decreased on vent.
No further change in patient assessment.
[2024-04-12] MEDS: SOLU-MEDROL PF 40 MG IV ×3 (04:33→21:12)
[2024-04-12 04:39] LABS: HCO3 22.6 mmol/L (21-28); O2 Saturation % 99.5 % (94-98); PCO2 34 mmHg (35-48); PO2 105 mmHg (83-108); pH 7.43 (7.35-7.45)
--- NOTE | 2024-04-12 04:50 | PTCARENOTE ---
No change in pt. Assessment.
[2024-04-12 04:55] LABS: % Basophils 0.1 % (0-2); % Immature Granulocytes 0.9 % (0-0.5); % Lymphocytes 7.3 % (20.5-51.1); % Monocytes 7.3 % (1.7-9.3); % Neutrophils 84.4 % (42.2-75.2); Absolute Immature Granulocytes 0.1 10^3/uL (0-0.05); Absolute Lymphocytes 1.1 10^3/uL (1.2-3.4); Absolute Monocytes 1.1 10^3/uL (0.1-0.6); Absolute Neutrophils 12.2 10^3/uL (1.4-6.5); Hematocrit 45.9 % (39.0-52.0); Mean Corp Hgb Conc. 34.9 g/dL (33.0-37.0); Mean Corpuscular Hgb 31.3 pg (27.0-31.0); Mean Corpuscular Volume 89.8 fL (80.0-94.0); Mean Platelet Volume 10.9 fL (7.4-10.4); Nucleated Red Blood Cells % 0 % (-); Platelet Count 199 10^3/uL (130-400); Red Blood Cell Count 5.11 10^6/uL (4.70-6.10); White Blood Cell Count 14.4 10^3/uL (4.8-10.8)
[2024-04-12 05:16] LABS: ALT (SGPT) 46 U/L (0-50); AST (SGOT) 38 U/L (17-59); Albumin 3.7 g/dl (3.5-5.0); Alkaline Phosphatase 54 U/L (38-126); Blood Urea Nitrogen 30 mg/dl (9-20); Calcium 9.2 mg/dl (8.4-10.2); Carbon Dioxide 23 mmol/L (22-30); Chloride 106 mmol/L (98-107); Estimated Creatinine Clearance 73 ml/min; Glucose 160 mg/dl (70-99); Phosphorus 4.7 mg/dl (2.5-4.5); Sodium 141 mmol/L (135-145); Total Bilirubin 0.6 mg/dl (0.2-1.3); Total Protein 5.9 g/dl (6.3-8.2); eGFR 55.78
[2024-04-12 05:26] LABS: NT-proBNP 1410 pg/ml
[2024-04-12] MEDS: DUONEB 3 ML INH ×2 (07:33→19:43)
[2024-04-12] MEDS: PROTONIX IV 40 MG IV (08:00)
[2024-04-12] MEDS: NSS (PRESERVATIVE FREE) 10 ML IV (08:00)
[2024-04-12] MEDS: LASIX 40 MG IV (08:00)
[2024-04-12] MEDS: MIRALAX 17 GRAMS TUBE (08:00)
[2024-04-12] MEDS: NICODERM TRANSDERMAL 21 MG TRANSDERM (08:00)
--- NOTE | 2024-04-12 08:17 | W.PN.INTV ---
Today's Communication / Plan
Recommendations
Maintain net negative fluid balance as tolerated
Daily CXR
Adjust ventilator as needed to maintain plateau pressure <30 and SpO2 >90%
Daily SAT/SBT ideally with PEEP at 0 to avoid false reassurance for extubation given high risk for reintubation due to acute pulmonary edema
If extubated then would recommend extubating to BiPAP x 30-60mins
Monitor ETT secretions
Lightly sedate with goal RASS -1 to -2
Antibiotics
GDMT per cardiology
Defer ischemic workup to cardiology
DuoNebs/flovent with rapid wean off of systemic steroids as low suspicion for AECOPD
Eventual outpatient follow-up with us in the office for full PFTs and discussion of LDCT chest for lung cancer screening purposes
Continue ICU level of care for this critically ill patient
Assessment
-
Assessment: 63-year-old male tobacco smoker with a past medical history of hypertension + hyperlipidemia who presented with sudden onset of shortness of breath. No chest pain reported. EMS arrived and patient was very agitated and even removed 2
IVs. He was placed onto CPAP and tried to remove that mask as well. He was given aspirin albuterol en route and was tolerating 15 L/min via NRB with saturations of 92%. He reportedly had COVID-19 two months ago. History obtained from the patient
significant other and medical records. She apparently awoke and overnight prior to arrival and found him having significant shortness of breath and nominal and was called. He was intubated in the ER due to continued respiratory distress. Initial
vitals in the ER showed he was hypertensive to 231/116, saturating 85% on BiPAP, and heart rate 92. Once he was intubated saturations improved to 100%. Initial labs showed leukocytosis of 21.9, Hb 19.5, respiratory acidosis with pH 7.15, pCO2 76,
serum bicarbonate level 26, serum sodium 149, glucose 160, initial troponin 0.037, proBNP elevated at 1740, and procalcitonin negative at 0.15. Urinalysis showed +1 leukocyte esterase and 11�15 urine WBC. COVID-19 antigen was negative, as well as
flu A/B (negative). CXR obtained showed diffusely prominent interstitial markings likely due to interstitial edema versus pneumonitis. CT head showed no acute intracranial abnormality. CTA chest showed no central PE (limited study) with
subsegmental atelectasis with small pleural effusions and bilateral opacification with cardiomegaly, CAD and a moderate pericardial effusion. In the ER he was given albuterol, DuoNebs, Decadron, Lasix 40 mg IV x 1, Zosyn, and then sedated with
fentanyl. He was then brought to the ICU for further care and medical records secretary services consulted for additional management/recommendations.
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
Impression:
#Acute respiratory failure with hypoxia + hypercapnia due to acute pulmonary edema from hypertensive crisis + ADHF now on mechanical ventilation
- Intubated 04/11/2024
#Leukocytosis likely reactive
#Acute pulmonary edema likely due to hypertensive crisis in the setting of acute decompensated heart failure/combined acute HFrEF with diastolic heart failure
#Moderate-size pericardial effusion with small bilateral pleural effusions
#Prediabetes (HbA1c: 5.8 on 04/11/2024)
#Elevated troponin likely due to demand ischemia with type II FL; unable to rule out NSTEMI - peaked at 2.08 on 04/11/2024
#Active tobacco use
#Centrilobular emphysema with suspected COPD
#History of COVID-19 (reported to be positive in 01/2024)
#History of hypertension
#History of hyperlipidemia
Plan:
- On arrival his BP was in the 220-230s/110s
- This likely was the culprit for his acute pulmonary edema with sudden severe respiratory distress
- There is a component of acute decompensated heart failure on top of his HTN-crisis
- Reduce SBP by 25% over this first 24 hrs, then would reduce further from there with eventual BP goal of <140/90
- Would keep goal SBP for today between 140-160
- Maintain MAP>65
- Continue mechanical ventilation with daily SAT/SBT if clinically appropriate
- Titrate FiO2 and PEEP to keep SpO2 >90-94%
- maintain plateau pressure <30
- Adjust ventilator as needed to optimize pH; check blood gas daily and CXR to assess ETT position
- Diurese and maintain net negative fluid balance, with BP goals as above --> diuresis currently on hold given rise in Cr
- Lightly sedate with goal RASS -1 to -2
- Maintain SpO2 >90-94%
- Continue DuoNebs QID with flovent
- Continue systemic steroids given high suspicion for COPD --> although his current clinical status is due to ADHF and not acute COPD exacerbation, so will try to wean off steroids fairly rapidly
- Low suspicion for pneumonia given his procalcitonin is 0.5; procalcitonin however can sometimes be falsely low initially and then can rise after 24-48 hours so would recheck another level tomorrow
- Given that his urinalysis positive with +1 leukocyte esterase would continue with antibiotics for now with cefepime
- Urine antigens for Legionella + strep pneumonia are both negative
- Continue trending troponin level until it peaks
- Check echo --> shows moderately�severely reduced LVEF with global hypokinesis, EF 30-35% with stage II diastolic dysfunction, mild�moderate MR, mild�moderate AI with small pericardial effusion without evidence of tamponade
- Cardiology consulted and recommendations appreciated
- Replete electrolytes with K>4, Mg>2
- Nicotine patch
- Maintain euglycemia with goal BG 140-180
- Trend H/H and transfuse if needed to keep Hb>7g/dL; keep plt>20k, unless there is concern for bleeding then keep plt>50k
- DVT ppx: LMWH
Critical care statement: A total of 44 minutes of critical care time was provided for this patient today. This includes management of unstable vital signs, evaluation of the patient at bedside, reviewing the patient's pertinent medical records
including radiographs, microbiology, laboratory evaluations, and discussion with primary team, consultants, pharmacy, nutrition, physical therapy, case management, charge nurse, critical care nursing, and respiratory therapy.
Data:
CTA Chest 04/11/2024:
Extremely limited study, as described, without findings to confirm pulmonary embolism to the level of the proximal segmental branches bilaterally.
Bilateral opacification most likely representing subsegmental atelectasis with small pleural effusions. Pneumonia cannot be excluded.
Cardiomegaly, coronary artery calcifications and moderate pericardial effusion.
Enlarged heterogeneous thyroid gland, left lobe larger in size than right.
CXR 04/12/2024:
Left hemidiaphragm is obscured suggesting left lower lobe subsegmental atelectasis and/or pneumonia and possible small left pleural effusion.
Left midlung opacity slightly improved.
Subjective Dataa
Subjective Data
Date of Service:
Date of Service: April 12, 2024
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
Subjective:
Patient was seen and evaluated this morning. Currently on a pressure support trial of PS 5, PEEP of 8. FiO2 40%, and saturating 95%. PIP 14, VTe 420 mL and breathing at 20 breaths/min. Currently heart rate 102 and BP 163/71. PEEP lowered to 5
and then eventually to 0 given his acute pulmonary edema. He became more short of breath with PEEP of 0 and then PEEP was raised back up accordingly. He was very anxious during pressure for trial with SBPs rising into the 200s. He otherwise
denies chest pain (nods head yes or no to my questions).
Review of Systems
General: Other (Unable to obtain given patient's acute clinical status/intubated)
Objective Data
Data Reviewed
Vital Signs / I&O / Oxygen:
Vital Signs
Temp Pulse Resp BP Pulse Ox
97.8 F 98 18 118/69 95
04/12/24 07:59 04/12/24 09:15 04/12/24 09:15 04/11/24 06:00 04/12/24 09:15
Intake and Output
04/11/24 04/12/24 04/13/24
06:59 06:59 06:59
Intake Total 656.8 / 677.0 70.4 / 70.4
Output Total 3640 / 3670 60 / 60
Balance -2983.2 / -2993.0 10.4 / 10.4
SaO2 [A/C] 94
SaO2 95
Physical Exam
General: Respiratory Distress (negative) and Chills (negative)
HEENT: Normocephalic, Anicteric and Other (ETT in place)
Cardiovascular: S1-S2 and Peripheral Edema (negative)
Respiratory: Wheeze (negative), Crackles (Bilaterally), Rhonchi (negative), Non-Labored Respirations and ET Tube (Mechanical breath sounds heard bilaterally)
GI: Soft, Non Distended, Non Tender and Normal Bowel Sounds
Neurology: Awake, Alert and Tremors (negative)
Skin: Warm, Dry, Cyanosis (negative) and Jaundice (negative)
Labs/Micro/Reports
Lab Data
04/12/24 04:26
04/12/24 04:26
Laboratory Results
04/11/24 04/12/24
23:57 04:26
pH 7.42 7.43
pCO2 39 34 L
pO2 104 105
HCO3 25.3 22.6
O2 Delivery Level
Microbiology
04/11/24 05:22 Nose MRSA Screen - Final
No Methicillin Resistant Staphylococcus aureus isolated.
04/11/24 10:06 Urine Streptococcus pneumoniae Antigen (M - Final
Negative for Streptococcus pneumoniae antigen.
A negative result does not exclude infection with
Streptococcus pneumoniae. Clinical correlation is
recommended.
04/11/24 06:13 Urine Legionella Urinary Antigen - Final
Negative for Legionella pneumophila Serogroup 1 antigen.
A negative result does not rule out the possiblity of
Legionella infection due to other serogroups or species of
Legionella. Clinical correlation is recommended.
04/11/24 01:55 Nasal Swab Influenza Types A & B ([facility]) - Final
Negative for Influenza A & B, NAAT
Negative results must be combined with clinical observations
and patient history.
Nucleic Acid Amplification test (NAAT)performed on the
[employer] platform.
--- NOTE | 2024-04-12 10:14 | W.PN.CARDCBS ---
Today's Communication / Plan
-
Will hold further Lasix and dose as needed
Eventual ischemic evaluation
Eventual initiation and up titration of guideline directed medical therapy for heart failure with reduced ejection fraction
Impression / Plan
-
Primary Label Rewinder: none
Assessment:
Presentation with SOB
Acute hypoxic respiratory failure, intubated in ER 04/10/24
Leukocytosis
Suspected PNA/COPD exacerbation
Concern for acute CHF/flash pulm edema
Hypertensive emergency
Elevated troponin
HTN
HLD
Tobacco use
ECG 1 (presentation) sinus rhythm with biatrial abnormality and inferolateral ST abnormality concerning for inferolateral ischemia
ECG 2 sinus rhythm with biatrial enlargement, LVH nonspecific ST and T wave abnormalities inferolateral ST abnormalities have improved
On presentation First troponin 0.237, Second troponin 0.237
On presentation proBNP 1740
CTA chest no definite pulmonary embolism, there is moderate pericardial effusion described, there is bilateral oral opacification representing subsegmental atelectasis with small pleural effusions. Possible pneumonia
ECHO 04/11/24:
- Left ventricle is moderately dilated. Mild concentric left ventricular hypertrophy.
- Moderately- severely reduced left ventricular systolic function. Global hypokinesis. LVEF 30-35%
- Stage II diastolic dysfunction suggestive of abnormal relaxation and increased filling pressures.
- Mildly dilated left atrium.
- Mild to moderate mitral regurgitation.
- Mild to moderate aortic regurgitation
- Small pericardial effusion without evidence of hemodynamic compromise.
- Pleural effusion present.
Plan:
Admitted April 10, 2024 with acute onset shortness of breath hypoxia and respiratory failure requiring ventilatory support/intubation and mechanical ventilation.
Additionally on presentation markedly hypertensive/hypertensive emergency.
Since presentation, troponin has increased to 1.78, then 2.08, and more recently trended downward to 1.61, echocardiogram shows global hypokinesis with EF of 30 to 35%. EKG is without evidence of acute myocardial infarction but no inferolateral ST
abnormalities concerning for ischemia present on initial EKG.
On presentation he had some component of decompensated heart failure with reduced ejection fraction. Heart failure with reduced ejection fraction/cardiomyopathy is a new diagnosis
Elevated troponin likely demand ischemia from his respiratory decompensation
With IV Lasix diuresis he is -1 L and weight is down approximately 2 pounds overnight, Creatinine is up to 1.4. BP is borderline. pBNP 1740 on adm 04/11, was ordered again and is down to 1410 on 04/12
I do not think he is significantly volume overloaded at present, he has been ordered Lasix 40 mg IV twice daily, received AM dose. Will DC order and consider dose PRN tomorrow
Eventual ischemic evaluation
Continue aspirin
Eventual BB
LDL 114. would re-initiate statin therapy when able
Treatment of emphysema with suspected COPD as per pulmonary
Treatment of PNA per primary service. covid negative
-d/w nursing
total time 50 min
Progress Note - Label Rewinder
Subjective
Date of Service: April 12, 2024
He is awake and alert. He is currently intubated but can respond. He tells me he has no chest discomfort.
Objective
Labs:
04/12/24 04:26
04/12/24 04:26
Labs
Hgb 16.0 g/dL (13.0-18.0) 04/12/24 04:26
Hct 45.9 % (39.0-52.0) 04/12/24 04:26
Plt Count 199 10^3/uL (130-400) 04/12/24 04:26
PT 14.1 Sec (11.4-14.6) 04/11/24 05:22
INR 1.11 04/11/24 05:22
APTT 29.8 Sec (23.4-35.0) 04/11/24 00:53
Sodium 141 mmol/L (135-145) 04/12/24 04:26
Potassium 4.0 mmol/L (3.5-5.1) 04/12/24 04:26
BUN 30 mg/dl (9-20) H 04/12/24 04:26
Creatinine 1.4 mg/dL (0.7-1.3) H 04/12/24 04:26
Glucose 160 mg/dl (70-99) H 04/12/24 04:26
Troponins
04/11/24 04/11/24 04/11/24
00:54 05:22 11:43
Troponin I 0.037 H* 0.237 H* D 1.780 H* D
04/11/24 04/12/24
18:13 04:26
Troponin I 2.080 H* 1.610 H*
Vital Signs and I&O:
Vital Signs
Temp Pulse Resp BP Pulse Ox
97.8 F 98 18 118/69 95
04/12/24 07:59 04/12/24 09:15 04/12/24 09:15 04/11/24 06:00 04/12/24 09:15
Vital Signs
Temp Pulse Resp BP Pulse Ox
97.8 F 98 18 118/69 95
04/12/24 07:59 04/12/24 09:15 04/12/24 09:15 04/11/24 06:00 04/12/24 09:15
Intake & Output
04/10/24 04/11/24 04/12/24 04/13/24
06:59 06:59 06:59 06:59
Intake Total 656.8 / 677.0 70.4 / 70.4
Output Total 3640 / 3670 60 / 60
Balance -2983.2 / -2993.0 10. / 10.4
Physical Exam
Physical Exam
Intubated, awake and responsive
Regular rate and rhythm normal S1 and S2, no S3 no S4 is grade 1/6 apical holosystolic murmur no rubs
Lungs are clear to auscultation anteriorly, coarse breath sound
Abdomen soft nontender nondistended normoactive bowel sound
Extremities show no clubbing or cyanosis there is trace pretibial edema bilaterally
--- NOTE | 2024-04-12 10:44 | PTCARENOTE ---
Pt placed on SBT ~0915 10/22/%. Fentanyl gtts off, Propofol down to 10mcg/kg/min then off. Pt anxious initially but calm presently. ABG drawn and sent, awaiting results.
[2024-04-12 10:53] LABS: B.E. 1.6 mmol/L; HCO3 26.6 mmol/L (21-28); O2 Saturation % 99.1 % (94-98); PCO2 42 mmHg (35-48); PO2 97 mmHg (83-108); pH 7.41 (7.35-7.45)
[2024-04-12] MEDS: TRANDATE 10 MG IV (11:09)
--- NOTE | 2024-04-12 11:35 | W.PN.HOSP.TC ---
Today's Communication/Plan
-
Monitor vital signs see plan
Hold further Lasix per cardiology
Monitor urine output
Plan for possible extubation today
Wean steroids as tolerated
Continue antibiotics for now
Agree with nebs
Assessment / Plan
Assessment / Plan
General: Well Nourished and Intubated
HEENT: NormoCephalic, Anicteric, Moist mucous membranes, Atraumatic and No Ptosis
Respiratory: Ventilated breath sounds, intubated
Cardiac: S1/S2,RRR
GI: Soft, Non Tender, Non Distended and Normal Bowel Sounds
Musculoskeletal: No Edema
Neuro: awake
psych: calm
Acute hypoxic respiratory failure likely multifactorial secondary to acute pulmonary edema from hypertensive crisis and Acute CHF and COPD/emphysema exacerbation along with possible pneumonia
Currently intubated, plan for possible extubation today;, vent management per pulmonary
wean steroids as tolerated
cw abx for now
- sent sputum for gm stain and culture, mrsa screen
- blood cultures if spike fever
- legionella ag neg; strep neg
wean sedation as tolerated
Monitor in ICU
Acute CHF - Likely long standing hypertension, possibly flash pulmonary edema. BNP 1700. Trop peaked 2.8. Pericardial effusion w/o tamponade. Small pleural effusions. No significant peripheral edema.
echo 04/11 with reduced EF 30-35%; diastolic dysfunction
Ischemic evaluation per cardiology, will eventually need beta-ravindra
Creatinine mildly elevated to 1.4, cardiology wants to hold further Lasix and monitor. Monitor urine output. has stone
Cardiology following
Renal insufficiency likely secondary to diuresis
Unknown baseline, continue to monitor
Prediabetes
A1c 5.8
Monitor
Hypertensive emergency - No acute intracranial process or focal deficit
Does not appear to be compliant with medications
- lasix as above
- labetolol prn for now, goal SBP < 180 for now
- cardiology following
Tobacco dependence
- nicotine patch
DVT PPX - lovenox sq
Code status - Full Code provisionally
I spent a total of 52 minutes with the patient or on the floor. More than 50% of this time involved counseling and coordination of care.
Anticipated Discharge: > 48 hours
Subjective/Interval History
-
Date of Service: April 12, 2024
intubated
Objective Data
-
Labs:
Laboratory Results
04/11/24 04/12/24 04/12/24
23:57 04:26 10:33
WBC 14.4 H
Hgb 16.0
Hct 45.9
Plt Count 199
HCO3 25.3 22.6 26.6
Sodium 141
Potassium 4.0
Chloride 106
Carbon Dioxide 23
BUN 30 H
Creatinine 1.4 H
Glucose 160 H
Calcium 9.2
Total Bilirubin 0.6
AST 38
ALT 46
Alkaline Phosphatase 54
Vital Signs:
Vital Signs
Temp Pulse Resp BP Pulse Ox
97.8 F 106 22 195/88 96
04/12/24 07:59 04/12/24 10:53 04/12/24 10:53 04/12/24 11:09 04/12/24 11:10
I&O
04/11/24 04/12/24 04/13/24
06:59 06:59 06:59
Intake Total 656.8 / 677.0 85.6 / 85.6
Output Total 3640 / 3670 760 / 760
Balance -2983.2 / -2993.0 -674.4 / -674.4
--- NOTE | 2024-04-12 12:25 | PTCARENOTE ---
Dr. Tejeda notified of ABG results. 1053-PEEP decreased to [address] Tejeda. ~1100 pt's HR up to 120-130's, SBP 180-200's, pt with increased WOB. Pt able to communicate by writing on paper that he was having a hard time
breathing. Pt continuously coughing, suctioned multiple times for thick white secretions. Dr. Tejeda and resp therapist notified, in to see pt. Pt placed back on 10/22/40% per . PRN Labetalol given. Pt continued to be anxious, repositioned in bed
and sitting upright. 1125-Propofol restarted at 10mcg/kg/min, pt remains awake but calm. SBP down to 140-150's, HR 90's.
--- NOTE | 2024-04-12 16:59 | PTCARENOTE ---
Pt continues on vent wean 10/19/40%, writing on clipboard to make needs known, nods appropriately to questions. Pt follows commands and assists with repositioning. Pt sitting comfortably in bed listening to music on his phone at this time.
[2024-04-12] MEDS: LOVENOX 40 MG SC (17:38)
[2024-04-12 18:35] LABS: Procalcitonin 0.26 ng/ml (0.0-0.25)
--- NOTE | 2024-04-12 19:45 | PTCARENOTE ---
Received pt via handoff. Pt alert and oriented, able to follow simple commands and can write any answers to questions we have. NSR, trace edema in lower extremities. Palpable pulses in upper and lower extremities. #7 ETT, 24@lip on the left. Vent
settings SPONT: 5/5/40%. Tolerating the vent well, suctions thin white, small secretions per patient request. [place] sump in the LN @75. Thermistor [place] draining clear yellow urine. Right radial A Line zeroed and correlates with cuff. Fentanyl and
Prop gtts running see flowsheet. Call aviles at bedside, will continue to monitor.
[2024-04-12] MEDS: SUBLIMAZE 50 MCG IV (21:11)
--- NOTE | 2024-04-12 23:49 | PTCARENOTE ---
All systems reassessed. ETT branes replaced by respiratory therapist and I. Pt back on AC 20/500/5/40%. A Line zeroed and correlates with cuff. Fent and prop gtts still on see flowsheet. Hygiene performed. Call aviles at bedside. Will continue to
monitor.
[2024-04-13] VITALS (18 sets, daily range): BP systolic 141–178; BP diastolic 62–105; PULSE 2–110; O2SAT 95; BMI 35.8
[2024-04-13] MEDS: DIPRIVAN 100 IV ×2 (00:20→04:04)
[2024-04-13 03:43] LABS: B.E. -1.4 mmol/L; HCO3 21.3 mmol/L (21-28); O2 Saturation % 98.9 % (94-98); PCO2 30 mmHg (35-48); PO2 103 mmHg (83-108); pH 7.46 (7.35-7.45)
--- NOTE | 2024-04-13 03:46 | PTCARENOTE ---
All systems reassessed. No change in status. Labs drawn, hygiene performed. Call aviles at bedside, will continue to monitor.
[2024-04-13 03:54] LABS: % Basophils 0.1 % (0-2); % Lymphocytes 5.8 % (20.5-51.1); % Monocytes 6.3 % (1.7-9.3); % Neutrophils 86.8 % (42.2-75.2); Absolute Immature Granulocytes 0.2 10^3/uL (0-0.05); Absolute Monocytes 1.1 10^3/uL (0.1-0.6); Absolute Neutrophils 14.5 10^3/uL (1.4-6.5); Hemoglobin 15.8 g/dL (13.0-18.0); Mean Corp Hgb Conc. 35.1 g/dL (33.0-37.0); Mean Corpuscular Hgb 30.6 pg (27.0-31.0); Mean Corpuscular Volume 87.2 fL (80.0-94.0); Mean Platelet Volume 11.1 fL (7.4-10.4); Nucleated Red Blood Cells % 0 % (-); Platelet Count 193 10^3/uL (130-400); Red Blood Cell Count 5.16 10^6/uL (4.70-6.10); Red Cell Dist. Width 14.3 % (11.5-14.5); White Blood Cell Count 16.7 10^3/uL (4.8-10.8)
[2024-04-13] MEDS: SUBLIMAZE 100 IV (04:04)
[2024-04-13 04:14] LABS: ALT (SGPT) 38 U/L (0-50); AST (SGOT) 25 U/L (17-59); Albumin 3.9 g/dl (3.5-5.0); Alkaline Phosphatase 53 U/L (38-126); Blood Urea Nitrogen 39 mg/dl (9-20); Calcium 9.2 mg/dl (8.4-10.2); Carbon Dioxide 22 mmol/L (22-30); Chloride 106 mmol/L (98-107); Estimated Creatinine Clearance 89 ml/min; Glucose 149 mg/dl (70-99); Magnesium 2.4 mg/dl (1.6-2.3); Phosphorus 3.9 mg/dl (2.5-4.5); Potassium 3.8 mmol/L (3.5-5.1); Sodium 142 mmol/L (135-145); Total Bilirubin 0.7 mg/dl (0.2-1.3); Total Protein 6.3 g/dl (6.3-8.2); eGFR > 60.00
[2024-04-13 04:22] LABS: NT-proBNP 458 pg/ml
[2024-04-13] MEDS: DUONEB 3 ML INH ×3 (07:20→21:03)
--- NOTE | 2024-04-13 07:27 | W.PN.INTV ---
Today's Communication / Plan
Recommendations
Continue with SBT, hope to extubate later today
Avoid oversedation
BiPAP as needed
Continue antibiotics for now
Appreciate cardiology input
Assessment
-
Assessment: 63-year-old male tobacco smoker with a past medical history of hypertension + hyperlipidemia who presented with sudden onset of shortness of breath. No chest pain reported. EMS arrived and patient was very agitated and even removed 2
IVs. He was placed onto CPAP and tried to remove that mask as well. He was given aspirin albuterol en route and was tolerating 15 L/min via NRB with saturations of 92%. He reportedly had COVID-19 two months ago. History obtained from the patient
significant other and medical records. She apparently awoke and overnight prior to arrival and found him having significant shortness of breath and nominal and was called. He was intubated in the ER due to continued respiratory distress. Initial
vitals in the ER showed he was hypertensive to 231/116, saturating 85% on BiPAP, and heart rate 92. Once he was intubated saturations improved to 100%. Initial labs showed leukocytosis of 21.9, Hb 19.5, respiratory acidosis with pH 7.15, pCO2 76,
serum bicarbonate level 26, serum sodium 149, glucose 160, initial troponin 0.037, proBNP elevated at 1740, and procalcitonin negative at 0.15. Urinalysis showed +1 leukocyte esterase and 11�15 urine WBC. COVID-19 antigen was negative, as well as
flu A/B (negative). CXR obtained showed diffusely prominent interstitial markings likely due to interstitial edema versus pneumonitis. CT head showed no acute intracranial abnormality. CTA chest showed no central PE (limited study) with
subsegmental atelectasis with small pleural effusions and bilateral opacification with cardiomegaly, CAD and a moderate pericardial effusion. In the ER he was given albuterol, DuoNebs, Decadron, Lasix 40 mg IV x 1, Zosyn, and then sedated with
fentanyl. He was then brought to the ICU for further care and manager marketing services consulted for additional management/recommendations.
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
Impression:
#Acute respiratory failure with hypoxia + hypercapnia due to acute pulmonary edema from hypertensive crisis + ADHF now on mechanical ventilation
- Intubated 04/11/2024
#Leukocytosis likely reactive
#Acute pulmonary edema likely due to hypertensive crisis in the setting of acute decompensated heart failure/combined acute HFrEF with diastolic heart failure
#Moderate-size pericardial effusion with small bilateral pleural effusions
#Prediabetes (HbA1c: 5.8 on 04/11/2024)
#Elevated troponin likely due to demand ischemia with type II [place]; unable to rule out NSTEMI - peaked at 2.08 on 04/11/2024
#Active tobacco use
#Centrilobular emphysema with suspected COPD
#History of COVID-19 (reported to be positive in 01/2024)
#History of hypertension
#History of hyperlipidemia
Plan/recommendations:
At this time, patient appears to be comfortable.
Tolerating CPAP, spontaneous tidal volume 700, max tidal volume 1500
Volume-cycled ventilation overnight noted
Negative fluid status noted
Moving forward
Continue with SBT
Hope for extubation later today
Would likely require BiPAP as needed and nightly in the interim
Likely component of mild hypercapnia
Continues with diuresis, cardiac management
Appreciate cardiology input
Chest x-ray 04/12 with left basilar atelectasis, cardiomegaly
Echocardiogram 04/11 with EF 30%, diastolic dysfunction, moderate MR
Rhonchi on exam noted
Continue DuoNebs QID with flovent
Continue systemic steroids given high suspicion for COPD --> although his current clinical status is due to ADHF and not acute COPD exacerbation, so will try to wean off steroids fairly rapidly
Reassessed extubation
Low suspicion for pneumonia, but will continue antibiotics for now
Tracheal culture not sent
Urine antigens for Legionella + strep pneumonia are both negative
Continue trending troponin per cardiology, seems to have peaked
Echocardiogram moderately�severely reduced LVEF with global hypokinesis, EF 30-35% with stage II diastolic dysfunction, mild�moderate MR, mild�moderate AI with small pericardial effusion without evidence of tamponade
Cardiology following
Nicotine patch
Maintain euglycemia with goal BG 140-180
Trend H/H and transfuse if needed to keep Hb>7g/dL; keep plt>20k, unless there is concern for bleeding then keep plt>50k
DVT ppx: LMWH
Critical care statement: A total of 35 minutes of critical care time was provided for this patient today. This includes management of unstable vital signs, evaluation of the patient at bedside, reviewing the patient's pertinent medical records
including radiographs, microbiology, laboratory evaluations, and discussion with primary team, consultants, pharmacy, nutrition, physical therapy, case management, charge nurse, critical care nursing, and respiratory therapy.
Data:
CTA Chest 04/11/2024:
Extremely limited study, as described, without findings to confirm pulmonary embolism to the level of the proximal segmental branches bilaterally.
Bilateral opacification most likely representing subsegmental atelectasis with small pleural effusions. Pneumonia cannot be excluded.
Cardiomegaly, coronary artery calcifications and moderate pericardial effusion.
Enlarged heterogeneous thyroid gland, left lobe larger in size than right.
CXR 04/12/2024:
Left hemidiaphragm is obscured suggesting left lower lobe subsegmental atelectasis and/or pneumonia and possible small left pleural effusion.
Left midlung opacity slightly improved.
Subjective Dataa
Subjective Data
Date of Service:
Date of Service: April 13, 2024
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
Subjective:
Patient remains critically ill, on mechanical ventilation. Strong cough. Tolerated CPAP yesterday throughout the day without issues. Presently on spontaneous CPAP. Denies chest pain, nausea, abdominal pain. Moves all extremities
Objective Data
Data Reviewed
Vital Signs / I&O / Oxygen:
Vital Signs
Temp Pulse Resp BP Pulse Ox
98.1 F 83 18 141/62 96
04/13/24 03:51 04/13/24 05:45 04/13/24 05:45 04/13/24 00:04 04/13/24 05:45
Intake and Output
04/12/24 04/13/24 04/14/24
06:59 06:59 06:59
Intake Total 656.8 / 677.0 511.8 / 511.8
Output Total 3640 / 3670 1800 / 1815
Balance -2983.2 / -2993.0 -1288.2 / -1303.2 -15
SaO2 [CPAP/PSV] 95
SaO2 [A/C] 94
SaO2 96
Physical Exam
General: Comfortable
HEENT: Normocephalic, Anicteric and Other (ETT in place)
Cardiovascular: S1-S2, Regular Rhythm, Murmur (n) and Peripheral Edema (negative)
Respiratory: Wheeze (negative), Crackles (n), Rhonchi (few), Non-Labored Respirations, Stridor (n) and ET Tube (Mechanical breath sounds heard bilaterally)
GI: Soft, Non Distended, Non Tender and Normal Bowel Sounds
Neurology: Awake, Alert and Tremors (negative)
Skin: Warm, Dry, Cyanosis (negative) and Jaundice (negative)
Labs/Micro/Reports
Lab Data
04/13/24 03:35
04/13/24 03:35
Laboratory Results
04/12/24 04/13/24
10:33 03:35
pH 7.41 7.46 H
pCO2 42 30 L
pO2 97 103
HCO3 26.6 21.3
O2 Delivery Level
Microbiology
04/11/24 05:22 Nose MRSA Screen - Final
No Methicillin Resistant Staphylococcus aureus isolated.
04/11/24 10:06 Urine Streptococcus pneumoniae Antigen (M - Final
Negative for Streptococcus pneumoniae antigen.
A negative result does not exclude infection with
Streptococcus pneumoniae. Clinical correlation is
recommended.
04/11/24 06:13 Urine Legionella Urinary Antigen - Final
Negative for Legionella pneumophila Serogroup 1 antigen.
A negative result does not rule out the possiblity of
Legionella infection due to other serogroups or species of
Legionella. Clinical correlation is recommended.
04/11/24 01:55 Nasal Swab Influenza Types A & B ([facility]) - Final
Negative for Influenza A & B, NAAT
Negative results must be combined with clinical observations
and patient history.
Nucleic Acid Amplification test (NAAT)performed on the
[employer] platform.
--- NOTE | 2024-04-13 08:04 | PTCARENOTE ---
Rec'd pt from cutting machine operator helper at 0700. Pt sedated on Propofol/Fentanyl gtts on vent, tolerating current settings: AC 20/500/40%/5. Opens eyes and nods head appropriately to verbal stimuli. Writing on clipboard. Monitor showing SR. Right radial a-line
leveled and zeroed. hypo BS, abd soft/nt. [place] sump to left nare clamped, Salgado in place draining yellow urine. Pt repositioned, oral care performed.
07:22-sedation turned off for SBT/SAT. RT Adrienne in room, at 7:30 vent settings flipped to CPAP 5/5, 40%. Pt initially coughing and anxious, hypertensive, suctioned frequently for thick white secretions, now calm, listening to music on phone. Will
check ABG at 08:30. Continuing to closely monitor.
[2024-04-13] MEDS: NICODERM TRANSDERMAL 21 MG TRANSDERM (08:23)
[2024-04-13] MEDS: MIRALAX 17 GRAMS TUBE (08:23)
[2024-04-13] MEDS: PROTONIX IV 40 MG IV (08:24)
[2024-04-13] MEDS: NSS (PRESERVATIVE FREE) 10 ML IV (08:24)
[2024-04-13] MEDS: SOLU-MEDROL PF 40 MG IV (08:24)
[2024-04-13] MEDS: MAXIPIME 2000 MG IV ×3 (08:25→23:29)
[2024-04-13] MEDS: STERILE WATER FOR INJECTION 10 ML IV ×3 (08:25→23:29)
--- NOTE | 2024-04-13 09:13 | PTCARENOTE ---
Pt tolerating CPAP wean well, ABG drawn and sent at this time.
[2024-04-13 09:22] LABS: B.E. 1.1 mmol/L; HCO3 27.2 mmol/L (21-28); O2 Saturation % 99.1 % (94-98); PCO2 47 mmHg (35-48); PO2 104 mmHg (83-108); pH 7.37 (7.35-7.45)
--- NOTE | 2024-04-13 10:00 | W.PN.CARDCBS ---
Today's Communication / Plan
-
To be extubated later today
Respiratory failure felt to be pulmonary in etiology as creatinine worsened with Lasix
Start Coreg when extubated
Eventual RINA/ARB
Eventual ischemic evaluation
Start Crestor when extubated
Impression / Plan
-
Primary Gps Navigation Installer: none
Assessment:
Presentation with SOB
Acute hypoxic respiratory failure, intubated in ER 04/10/24
Leukocytosis
Suspected PNA/COPD exacerbation
Concern for acute CHF/flash pulm edema
Hypertensive emergency
Non-[place] ischemic injury
HTN
HLD
Tobacco use
ECG 1 (presentation) sinus rhythm with biatrial abnormality and inferolateral ST abnormality concerning for inferolateral ischemia
ECG 2 sinus rhythm with biatrial enlargement, LVH nonspecific ST and T wave abnormalities inferolateral ST abnormalities have improved
On presentation First troponin 0.237, Second troponin 0.237
On presentation proBNP 1740
CTA chest no definite pulmonary embolism, there is moderate pericardial effusion described, there is bilateral oral opacification representing subsegmental atelectasis with small pleural effusions. Possible pneumonia
ECHO 04/11/24:
- Left ventricle is moderately dilated. Mild concentric left ventricular hypertrophy.
- Moderately- severely reduced left ventricular systolic function. Global hypokinesis. LVEF 30-35%
- Stage II diastolic dysfunction suggestive of abnormal relaxation and increased filling pressures.
- Mildly dilated left atrium.
- Mild to moderate mitral regurgitation.
- Mild to moderate aortic regurgitation
- Small pericardial effusion without evidence of hemodynamic compromise.
- Pleural effusion present.
Plan:
Respiratory failure felt to be more pulmonary than cardiac at this point.
Renal function worsened with diuresis
Continue treatment for pneumonia/COPD
To be extubated later today
Since presentation, troponin has increased to 1.78, then 2.08, and more recently trended downward to 1.61, echocardiogram shows global hypokinesis with EF of 30 to 35%. EKG is without evidence of acute myocardial infarction but no inferolateral ST
abnormalities concerning for ischemia present on initial EKG.
Will add Coreg when extubated
Eventual RINA inhibitor/ARB
Eventual ischemic evaluation
Will start Crestor when extubated
Progress Note - Gps Navigation Installer
Subjective
Date of Service: April 13, 2024
Patient awake on ventilator. To be extubated per nursing
Objective
Labs:
04/13/24 03:35
04/13/24 03:35
Labs
Hgb 15.8 g/dL (13.0-18.0) 04/13/24 03:35
Hct 45.0 % (39.0-52.0) 04/13/24 03:35
Plt Count 193 10^3/uL (130-400) 04/13/24 03:35
PT 14.1 Sec (11.4-14.6) 04/11/24 05:22
INR 1.11 04/11/24 05:22
APTT 29.8 Sec (23.4-35.0) 04/11/24 00:53
Sodium 142 mmol/L (135-145) 04/13/24 03:35
Potassium 3.8 mmol/L (3.5-5.1) 04/13/24 03:35
BUN 39 mg/dl (9-20) H 04/13/24 03:35
Creatinine 1.1 mg/dL (0.7-1.3) 04/13/24 03:35
Glucose 149 mg/dl (70-99) H 04/13/24 03:35
Troponins
04/11/24 04/11/24 04/11/24
00:54 05:22 11:43
Troponin I 0.037 H* 0.237 H* D 1.780 H* D
04/11/24 04/12/24
18:13 04:26
Troponin I 2.080 H* 1.610 H*
Vital Signs and I&O:
Vital Signs
Temp Pulse Resp BP Pulse Ox
98.1 F 92 24 157/73 95
04/13/24 07:57 04/13/24 09:19 04/13/24 09:19 04/13/24 07:40 04/13/24 09:19
Vital Signs
Temp Pulse Resp BP Pulse Ox
98.1 F 92 24 157/73 95
04/13/24 07:57 04/13/24 09:19 04/13/24 09:19 04/13/24 07:40 04/13/24 09:19
Intake & Output
04/11/24 04/12/24 04/13/24 04/14/24
06:59 06:59 06:59 06:59
Intake Total 656.8 / 677.0 511.8 / 511.8 0 / 0
Output Total 3640 / 3670 1800 / 1815 150 / 150
Balance -2983.2 / -2993.0 -1288.2 / -1303.2 -150 / -150
Physical Exam
Physical Exam
General: Well developed, well nourished in NAD.
Neck: Supple, no JVD, HJR, carotids +2 B/L, no bruits bilaterally.
Heart: Non displaced PMI, RRR, no murmurs, No S3, S4, no rubs.
Lungs: Scattered rhonchi
Extremities: No clubbing, cyanosis or edema bilaterally.
Neuro: Grossly nonfocal, awake, alert and oriented x3.
--- NOTE | 2024-04-13 10:25 | W.PN.HOSP.TC ---
Today's Communication/Plan
-
Continue with antibiotics
Wean from ventilator and extubate per asphalt smoother.
Follow blood pressure response to initiation of Coreg
Assessment / Plan
Assessment / Plan
Acute hypoxic respiratory failure likely multifactorial secondary to acute pulmonary edema from hypertensive crisis and Acute CHF and COPD/emphysema exacerbation along with possible pneumonia
Currently intubated, plan for possible extubation today;, vent management per pulmonary
Steroids weaned.
cw abx for now
- sent sputum for gm stain and culture, mrsa screen
- blood cultures if spike fever
- legionella ag neg; strep neg
wean sedation as tolerated
Monitor in ICU
Acute CHF - Likely long standing hypertension, possibly flash pulmonary edema. BNP 1700. Trop peaked 2.8. Pericardial effusion w/o tamponade. Small pleural effusions. No significant peripheral edema.
echo 04/11 with reduced EF 30-35%; diastolic dysfunction
Ischemic evaluation per cardiology, beta-ravindra initiated today
Will eventually need ARB/RINA inhibitor
Creatinine improved to 1.1, cardiology wants to hold further Lasix and monitor. Monitor urine output. has stone
Cardiology following
Renal insufficiency likely secondary to diuresis
Unknown baseline, continue to monitor
Improved creatinine
Prediabetes
A1c 5.8
Monitor
Hypertensive emergency - No acute intracranial process or focal deficit
Does not appear to be compliant with medications
- lasix as above
- labetolol prn for now, goal SBP < 180 for now
- cardiology following
Tobacco dependence
- nicotine patch
DVT PPX - lovenox sq
Code status - Full Code
Discussed with RN
Total time spent on today's encounter was 52 minutes which included time spent in counseling the patient regarding diagnosis and treatment plan as listed above, goals of care, and symptom management. Case was discussed with nursing staff,
specialists, and care coordinators/case management. All labs and imaging personally reviewed by me. Remainder the time spent in detailed review of previous records, lab data, imaging, and other medical provider documentation.
Anticipated Discharge: > 48 hours
Subjective/Interval History
-
Date of Service: April 13, 2024
Patient still intubated but awake and alert. Follows all commands. Looks comfortable.
Objective Data
-
Labs:
Laboratory Results
04/13/24 04/13/24
03:35 09:11
WBC 16.7 H
Hgb 15.8
Hct 45.0
Plt Count 193
HCO3 21.3 27.2
Sodium 142
Potassium 3.8
Chloride 106
Carbon Dioxide 22
BUN 39 H
Creatinine 1.1
Glucose 149 H
Calcium 9.2
Total Bilirubin 0.7
AST 25
ALT 38
Alkaline Phosphatase 53
Vital Signs:
Vital Signs
Temp Pulse Resp BP Pulse Ox
98.1 F 92 24 157/73 95
04/13/24 07:57 04/13/24 09:19 04/13/24 09:19 04/13/24 07:40 04/13/24 09:19
I&O
04/12/24 04/13/24 04/14/24
06:59 06:59 06:59
Intake Total 656.8 / 677.0 511.8 / 511.8 0 / 0
Output Total 3640 / 3670 1800 / 1815 235 / 235
Balance -2983.2 / -2993.0 -1288.2 / -1303.2 -235 / -235
Review of Systems
-
Unable to obtain full review of systems at this time due to: Patient Intubation
Physical Exam
-
General: No Apparent Distress
Respiratory: Clear to Auscultation (On anterior auscultation) and Non Labored Respirations; Negative Accessory Resp Muscle Use
Cardiac: Regular Rhythm and S1/S2; Negative Tachycardic
GI: Soft
Neuro: Awake and Alert
Psych: Calm
Data Reviewed
-
Labs: Labs Reviewed by me
--- NOTE | 2024-04-13 10:39 | PTCARENOTE ---
Addendum entered by Marianne Epps RN 04/13/24 10:59:
weaned to 4L. oral care provided, pt resting comfortably.
Original Note:
10:35-pt extubated to 6L nasal cannula. Sat 96%, voice raspy, will give breathing tx per RT.
[2024-04-13] MEDS: COREG 3.125 MG PO ×2 (10:44→19:39)
--- NOTE | 2024-04-13 10:52 | RESPNOTE ---
pt extubated at 1035 to 6 lpm midflow. 02 sats of 96% .
PRN Duoneb given to pt.
decreased 02 to 4lpm with sats of 95%
--- NOTE | 2024-04-13 12:14 | PTCARENOTE ---
11:30-care handed over to KIRILL Horn at this time.
--- NOTE | 2024-04-13 13:18 | PTCARENOTE ---
Assumed care of pt at 1130. Ox3 and appropriate, DEMARCO. Nsr on tele, hr 90-100's. A line dc'd, cuff BP 160/80's, trace LE edema. Extubated at 1025 to 4L NC, pt currently tolerating with sat of 94%. Coarse breath sounds, occasional productive cough of
some thick, saenz sputum. [place] sump dc'd. Hypoactive bowel sounds, pt does not complain of nausea or abd pain. Salgado in place draining clear yellow urine. IV sites intact. Call aviles within reach. Pt makes needs known.
--- NOTE | 2024-04-13 14:46 | CM ---
Case management following for discharge planning
Chart reviewed. Met with pt at bedside
Pt reports feeling better today
Extubated today
Remains on IV antibiotics
[facility]. Obtained Medicare card/info - given to [facility] per pt
PT/OT evals pending
Plan - TBD pend OT/PT evals
--- NOTE | 2024-04-13 15:38 | PTOTSP ---
SPEECH THERAPY SWALLOW EVALUATION:
Patient exhibits oropharyngeal swallow grossly WFL at this time; However, patient is at elevated risk for dysphagia/aspiration and related complications given current pneumonia, COPD, and recent extubation following 3-day endotracheal intubation. No
history of dysphagia. History of pneumonia x1 3 years ago due to 'aspiration/inhalation of vacuum cell cleaner bag material'. Recommend Regular texture diet, thin liquids. Medications whole with liquid as best tolerated. Aspiration precautions: Partial
assistance/supervision with meals; Monitoring for signs of aspiration; Upright positioning; Small single sips/bites; Slow rate of intake; D/c oral diet if any decline in mental/respiratory status. ST to follow, assess diet tolerance and modify as
appropriate, monitor CXR and labs, determine indication for VSE if warranted, and provide continued education regarding aspiration risks/precautions.
RECOMMEND:
1) Regular texture diet, thin liquids
2) Medications whole with liquid as best tolerated
3) Aspiration precautions: Partial assistance/supervision with meals; Monitoring for signs of aspiration; Upright positioning; Small single sips/bites; Slow rate of intake; D/c oral diet if any decline in mental/respiratory status.
4) ST to follow, determine indication for VSE if warranted
--- NOTE | 2024-04-13 17:26 | PTCARENOTE ---
Pt reassessed. Walked with Pt, OOB to chair. Pt starting to complain of the urge to have a BM, using BSC without difficulty, no bm yet. Pt in much better spirits. Updated pt's contact.
[2024-04-13] MEDS: LOVENOX 40 MG SC (17:50)
[2024-04-13] MEDS: CRESTOR 20 MG PO (17:50)
--- NOTE | 2024-04-13 20:30 | PTCARENOTE ---
Resumed care of pt sitting up in chair AAOx3. Pt asking to go to bathroom. Pt stable on feet and assisted to bathroom without difficulty. Pt unable to move bowels at this time. Pt brushed teethe, washed face, walked back to bed. Pt stating Salgado
catheter feels like its pulling. Salgado removed, no longed need critical I/O pt able to use urinal. HR in NSR with PVC's on the monitor, ST HR in the 120's with activity. POX 93% on RA, lungs course. BIPAP HS 12/. + bowel, round obese abd. Palpable
peripheral pulses present. Peripheral IV's capped. Pt denies any complaints at this time. Will continue to monitor.
--- NOTE | 2024-04-13 22:11 | PTCARENOTE ---
POX 88% on RA while sleeping. RT at bedside to place Bipap 05/21 with 2 LO2. POX now 96%. Will continue to monitor.
--- NOTE | 2024-04-13 23:35 | PTCARENOTE ---
Pt unable to tolerate BIPAP. Pt asking to remove mask. 2 LO2 NC applied. POX currently 94%. RT notified. No other changes in assessment noted at this time. Will continue to monitor.
[2024-04-14] VITALS (20 sets, daily range): BP systolic 109–163; BP diastolic 61–93; PULSE 86; O2SAT 89; BMI 35.6
[2024-04-14 04:36] LABS: Hematocrit 48.5 % (39.0-52.0); Hemoglobin 16.2 g/dL (13.0-18.0); Mean Corp Hgb Conc. 33.4 g/dL (33.0-37.0); Mean Corpuscular Hgb 29.9 pg (27.0-31.0); Mean Corpuscular Volume 89.6 fL (80.0-94.0); Mean Platelet Volume 10.7 fL (7.4-10.4); Platelet Count 175 10^3/uL (130-400); Red Blood Cell Count 5.41 10^6/uL (4.70-6.10); Red Cell Dist. Width 14.1 % (11.5-14.5); White Blood Cell Count 15.2 10^3/uL (4.8-10.8)
--- NOTE | 2024-04-14 04:38 | PTCARENOTE ---
Pt resting comfortable. Denies any complaints at this time. No changes in assessment noted. vital signs stable. Will continue to monitor.
[2024-04-14 05:02] LABS: Blood Urea Nitrogen 35 mg/dl (9-20); Calcium 8.9 mg/dl (8.4-10.2); Carbon Dioxide 26 mmol/L (22-30); Chloride 106 mmol/L (98-107); Estimated Creatinine Clearance 109 ml/min; Glucose 102 mg/dl (70-99); Magnesium 2.6 mg/dl (1.6-2.3); Potassium 3.9 mmol/L (3.5-5.1); Sodium 143 mmol/L (135-145); Triglycerides 342 mg/dl (10-149); eGFR > 60.00
[2024-04-14] MEDS: DUONEB 3 ML INH ×2 (07:31→20:08)
--- NOTE | 2024-04-14 07:31 | W.PN.INTV ---
Addendum entered and electronically signed by Srinivasa Berry MD 04/14/24 08:35:
Of note, CT chest 04/11/2024 reviewed
Would benefit from lung cancer screening, consider repeat CT chest March 2025
Patient also has enlarged thyroid, left side
Crucially important to identify primary physician and follow-up as outpatient
This was reviewed with the patient
Original Note:
Today's Communication / Plan
Recommendations
Patient refusing BiPAP
Discontinue steroids
Consider transition to oral antibiotics for additional 2 days and then discontinue
Ongoing cardiac management
Tobacco cessation efforts
Patient would benefit from lung cancer screening. Needs to identify primary physician
Patient transferred out of ICU. We will sign off. Please call with questions
Assessment
-
Assessment: 63-year-old male tobacco smoker with a past medical history of hypertension + hyperlipidemia who presented with sudden onset of shortness of breath. No chest pain reported. EMS arrived and patient was very agitated and even removed 2
IVs. He was placed onto CPAP and tried to remove that mask as well. He was given aspirin albuterol en route and was tolerating 15 L/min via NRB with saturations of 92%. He reportedly had COVID-19 two months ago. History obtained from the patient
significant other and medical records. She apparently awoke and overnight prior to arrival and found him having significant shortness of breath and nominal and was called. He was intubated in the ER due to continued respiratory distress. Initial
vitals in the ER showed he was hypertensive to 231/116, saturating 85% on BiPAP, and heart rate 92. Once he was intubated saturations improved to 100%. Initial labs showed leukocytosis of 21.9, Hb 19.5, respiratory acidosis with pH 7.15, pCO2 76,
serum bicarbonate level 26, serum sodium 149, glucose 160, initial troponin 0.037, proBNP elevated at 1740, and procalcitonin negative at 0.15. Urinalysis showed +1 leukocyte esterase and 11�15 urine WBC. COVID-19 antigen was negative, as well as
flu A/B (negative). CXR obtained showed diffusely prominent interstitial markings likely due to interstitial edema versus pneumonitis. CT head showed no acute intracranial abnormality. CTA chest showed no central PE (limited study) with
subsegmental atelectasis with small pleural effusions and bilateral opacification with cardiomegaly, CAD and a moderate pericardial effusion. In the ER he was given albuterol, DuoNebs, Decadron, Lasix 40 mg IV x 1, Zosyn, and then sedated with
fentanyl. He was then brought to the ICU for further care and curriculum consultant services consulted for additional management/recommendations.
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
Impression:
#Acute respiratory failure with hypoxia + hypercapnia due to acute pulmonary edema from hypertensive crisis + ADHF now on mechanical ventilation
- Intubated 04/11/2024
- Extubated 04/13
#Leukocytosis likely reactive
#Acute pulmonary edema likely due to hypertensive crisis in the setting of acute decompensated heart failure/combined acute HFrEF with diastolic heart failure
#Moderate-size pericardial effusion with small bilateral pleural effusions
#Prediabetes (HbA1c: 5.8 on 04/11/2024)
#Elevated troponin likely due to demand ischemia with type II VA; unable to rule out NSTEMI - peaked at 2.08 on 04/11/2024
#Active tobacco use
#Centrilobular emphysema with suspected COPD
#History of COVID-19 (reported to be positive in 01/2024)
#History of hypertension
#History of hyperlipidemia
Plan/recommendations:
At this time, patient appears to be comfortable.
Presently on room air
Did not tolerate BiPAP, refused
Blood pressure and heart rate appear to be better controlled. Urine output adequate
ABG preextubation noted, mild CO2 retention noted
Moving forward
Continue with management per primary service, cardiology
Continues with diuresis, blood pressure management
Appreciate cardiology input
Eventual ischemic evaluation
Chest x-ray 04/12 with left basilar atelectasis, cardiomegaly
Echocardiogram 04/11 with EF 30%, diastolic dysfunction, moderate MR
Reviewed importance of compliance with recommendations
Mild crackles left base
Continue DuoNebs
Discontinue Flovent
Discontinue steroids
Low suspicion for pneumonia, but will continue antibiotics for now
Tracheal culture not sent
Urine antigens for Legionella + strep pneumonia are both negative
Presently on cefepime, consider discontinuation vs transition to oral medication for additional 2 days
Nicotine patch
Discussed importance of tobacco cessation
Maintain euglycemia with goal BG 140-180
Trend H/H and transfuse if needed to keep Hb>7g/dL; keep plt>20k, unless there is concern for bleeding then keep plt>50k
DVT ppx: LMWH
Patient would benefit from outpatient sleep evaluation.
Encouraged him to identify primary physician and then follow-up with pulmonary as able
For transfer out of ICU. We will sign off. Please call with questions
Data:
CTA Chest 04/11/2024:
Extremely limited study, as described, without findings to confirm pulmonary embolism to the level of the proximal segmental branches bilaterally.
Bilateral opacification most likely representing subsegmental atelectasis with small pleural effusions. Pneumonia cannot be excluded.
Cardiomegaly, coronary artery calcifications and moderate pericardial effusion.
Enlarged heterogeneous thyroid gland, left lobe larger in size than right.
CXR 04/12/2024:
Left hemidiaphragm is obscured suggesting left lower lobe subsegmental atelectasis and/or pneumonia and possible small left pleural effusion.
Left midlung opacity slightly improved.
Subjective Dataa
Subjective Data
Date of Service:
Date of Service: April 14, 2024
Chief Complaint: [employer] Follow Up
Subjective:
Patient is without complaints. Denies shortness of breath, chest pain, nausea. Did not tolerate CPAP overnight
Objective Data
Data Reviewed
Vital Signs / I&O / Oxygen:
Vital Signs
Temp Pulse Resp BP Pulse Ox
98.0 F 78 17 130/84 97
04/14/24 04:22 04/14/24 06:15 04/14/24 06:15 04/14/24 06:00 04/14/24 06:15
Intake and Output
04/13/24 04/14/24 04/15/24
06:59 06:59 06:59
Intake Total 511.8 / 511.8 1140 / 1140
Output Total 1800 / 1815 910 / 910
Balance -1288.2 / -1303.2 230 / 230
SaO2 [CPAP/PSV] 96
SaO2 [A/C] 94
SaO2 97
Nasal Cannula flow liters per 2
minute
Physical Exam
General: Comfortable (Large neck)
HEENT: Normocephalic and Anicteric
Cardiovascular: S1-S2, Regular Rhythm, Murmur (n) and Peripheral Edema (negative)
Respiratory: Wheeze (negative), Crackles (Mild at left base), Rhonchi (few), Non-Labored Respirations, Stridor (n) and Egophony (n)
GI: Soft, Non Distended, Non Tender and Normal Bowel Sounds
Neurology: Awake, Alert and No Motor Deficits (Able to sit up without assistance, moves all extremities)
Skin: Warm, Dry, Cyanosis (negative) and Jaundice (negative)
Labs/Micro/Reports
Lab Data
04/14/24 04:19
04/14/24 04:19
Laboratory Results
04/13/24
09:11
pH 7.37
pCO2 47
pO2 104
HCO3 27.2
O2 Delivery Level
Microbiology
04/11/24 05:22 Nose MRSA Screen - Final
No Methicillin Resistant Staphylococcus aureus isolated.
04/11/24 10:06 Urine Streptococcus pneumoniae Antigen (M - Final
Negative for Streptococcus pneumoniae antigen.
A negative result does not exclude infection with
Streptococcus pneumoniae. Clinical correlation is
recommended.
04/11/24 06:13 Urine Legionella Urinary Antigen - Final
Negative for Legionella pneumophila Serogroup 1 antigen.
A negative result does not rule out the possiblity of
Legionella infection due to other serogroups or species of
Legionella. Clinical correlation is recommended.
[2024-04-14] MEDS: STERILE WATER FOR INJECTION 10 ML IV (07:47)
[2024-04-14] MEDS: MAXIPIME 2000 MG IV (07:48)
[2024-04-14] MEDS: NICODERM TRANSDERMAL 21 MG TRANSDERM (07:49)
[2024-04-14] MEDS: COREG 3.125 MG PO (07:51)
--- NOTE | 2024-04-14 09:06 | W.PN.HOSP.TC ---
Today's Communication/Plan
-
Switch abx to oral Cefdinir
CW BB and statins
DC planning
Assessment / Plan
Assessment / Plan
Acute hypoxic respiratory failure likely multifactorial secondary to acute pulmonary edema from hypertensive crisis and Acute CHF and COPD/emphysema exacerbation along with possible pneumonia
Extubated 04/13
Currently on room air
No active bronchospasm-off of steroids now
On antibiotics for possible pneumonia-culture negative so far. Afebrile. Nontoxic. Switch to oral cefdinir. Follow leukocytosis which is improving.
Diuretics as per cardiology. Lost good amount of weight of 16 pounds.
Acute CHF - Likely long standing hypertension, possibly flash pulmonary edema. BNP 1700. Trop peaked 2.8. Pericardial effusion w/o tamponade. Small pleural effusions. No significant peripheral edema.
echo 04/11 with reduced EF 30-35%; diastolic dysfunction
Ischemic evaluation per cardiology, beta-ravindra initiated
Will eventually need ARB/RINA inhibitor
Creatinine improved to 0.9
Diuretics on hold with good response and elevated Cr
Cardiology following
Renal insufficiency likely secondary to diuresis
Unknown baseline, continue to monitor
Improved creatinine
Prediabetes
A1c 5.8
Monitor
Hypertensive emergency - No acute intracranial process or focal deficit
Does not appear to be compliant with medications
- BP under goal today
- On BB
- labetolol prn for now, goal SBP < 180 for now
- cardiology following
Enlarged thyroid gland-patient made aware about this finding today. Advised to follow-up with the ultrasound as an outpatient.
Tobacco dependence
- nicotine patch
DVT PPX - lovenox sq
Code status - Full Code
Discussed with RN
Tx to IVU pending
Anticipated Discharge: > 48 hours
Subjective/Interval History
-
Date of Service: April 14, 2024
Patient extubated yesterday. Feels okay with the breathing. Denies shortness of breath. No chest pains or palpitations.
Objective Data
-
Labs:
Laboratory Results
04/14/24
04:19
WBC 15.2 H
Hgb 16.2
Hct 48.5
Plt Count 175
Sodium 143
Potassium 3.9
Chloride 106
Carbon Dioxide 26
BUN 35 H
Creatinine 0.9
Glucose 102 H
Calcium 8.9
Vital Signs:
Vital Signs
Temp Pulse Resp BP Pulse Ox
97.9 F 92 18 138/76 95
04/14/24 07:55 04/14/24 07:51 04/14/24 07:35 04/14/24 07:51 04/14/24 07:35
I&O
04/13/24 04/14/24 04/15/24
06:59 06:59 06:59
Intake Total 511.8 / 511.8 1140 / 1140 480 / 480
Output Total 1800 / 1815 910 / 1135 225 / 225
Balance -1288.2 / -1303.2 230 / 5 255 / 255
Review of Systems
-
Constitutional: Denies Fever
EENT: Denies Sore Throat
Respiratory: Denies Cough
Abdomen/GI: Denies Abdominal Pain, Nausea or Vomiting
Neuro: Denies Dizzy
Physical Exam
-
General: Comfortable
Respiratory: Crackles (Left more than right base) and Non Labored Respirations; Negative Accessory Resp Muscle Use
Cardiac: Regular Rhythm and S1/S2
GI: Soft
Musculoskeletal: Negative No Edema (Trace bilateral lower extremity edema)
Neuro: AO x 3 and No Motor Deficits
Psych: Calm; Negative Confused or Agitated
Data Reviewed
-
Labs: Labs Reviewed by me
--- NOTE | 2024-04-14 09:43 | W.PN.CARDCBS ---
Today's Communication / Plan
-
Increase Coreg and add lisinopril
Recheck echocardiogram on 04/15
Consider catheterization if ejection fraction remains reduced especially with tobacco abuse and possible CAD as a cause
Impression / Plan
-
Primary Call Specialist: none
Assessment:
Presentation with SOB
Acute hypoxic respiratory failure, intubated in ER 04/10/24, extubated 04/13/2024
Leukocytosis
Suspected PNA/COPD exacerbation
Concern for acute CHF/flash pulm edema
Hypertensive emergency
Non-[place] ischemic injury
HTN
HLD
Tobacco use
ECG 1 (presentation) sinus rhythm with biatrial abnormality and inferolateral ST abnormality concerning for inferolateral ischemia
ECG 2 sinus rhythm with biatrial enlargement, LVH nonspecific ST and T wave abnormalities inferolateral ST abnormalities have improved
On presentation First troponin 0.237, Second troponin 0.237
On presentation proBNP 1740
CTA chest no definite pulmonary embolism, there is moderate pericardial effusion described, there is bilateral oral opacification representing subsegmental atelectasis with small pleural effusions. Possible pneumonia
ECHO 04/11/24:
- Left ventricle is moderately dilated. Mild concentric left ventricular hypertrophy.
- Moderately- severely reduced left ventricular systolic function. Global hypokinesis. LVEF 30-35%
- Stage II diastolic dysfunction suggestive of abnormal relaxation and increased filling pressures.
- Mildly dilated left atrium.
- Mild to moderate mitral regurgitation.
- Mild to moderate aortic regurgitation
- Small pericardial effusion without evidence of hemodynamic compromise.
- Pleural effusion present.
Plan:
He is on room air after having been extubated on 04/13
Continue to treat cardiomyopathy with medications. Will increase Coreg and add lisinopril.
Eventual Aldactone
Will start Farxiga or Jardiance if insurance approves
Will recheck echocardiogram on 04/15
Might consider cardiac catheterization to exclude CAD as the cause of cardiomyopathy especially given tobacco abuse if ejection fraction remains reduced
Progress Note - Call Specialist
Subjective
Date of Service: April 14, 2024
He is without complaints.
Objective
Labs:
04/14/24 04:19
04/14/24 04:19
Labs
Hgb 16.2 g/dL (13.0-18.0) 04/14/24 04:19
Hct 48.5 % (39.0-52.0) 04/14/24 04:19
Plt Count 175 10^3/uL (130-400) 04/14/24 04:19
PT 14.1 Sec (11.4-14.6) 04/11/24 05:22
INR 1.11 04/11/24 05:22
APTT 29.8 Sec (23.4-35.0) 04/11/24 00:53
Sodium 143 mmol/L (135-145) 04/14/24 04:19
Potassium 3.9 mmol/L (3.5-5.1) 04/14/24 04:19
BUN 35 mg/dl (9-20) H 04/14/24 04:19
Creatinine 0.9 mg/dL (0.7-1.3) 04/14/24 04:19
Glucose 102 mg/dl (70-99) H 04/14/24 04:19
Troponins
04/11/24 04/11/24 04/12/24
11:43 18:13 04:26
Troponin I 1.780 H* D 2.080 H* 1.610 H*
Vital Signs and I&O:
Vital Signs
Temp Pulse Resp BP Pulse Ox
97.9 F 92 18 138/76 96
04/14/24 07:55 04/14/24 07:51 04/14/24 07:35 04/14/24 07:51 04/14/24 09:21
Vital Signs
Temp Pulse Resp BP Pulse Ox
97.9 F 92 18 138/76 96
04/14/24 07:55 04/14/24 07:51 04/14/24 07:35 04/14/24 07:51 04/14/24 09:21
Intake & Output
04/12/24 04/13/24 04/14/24 04/15/24
06:59 06:59 06:59 06:59
Intake Total 656.8 / 677.0 511.8 / 511.8 1140 / 1140 480 / 480
Output Total 3640 / 3670 1800 / 1815 910 / 1135 225 / 225
Balance -2983.2 / -2993.0 -1288.2 / -1303.2 230 / 5 255 / 255
Physical Exam
Physical Exam
General: Well developed, well nourished in NAD.
Neck: Supple, no JVD, HJR, carotids +2 B/L, no bruits bilaterally.
Heart: Non displaced PMI, RRR, no murmurs, No S3, S4, no rubs.
Lungs: Scattered rhonchi
Abdomen: Normal bowel sounds, soft, non-tender, non-distended.
Extremities: No clubbing, cyanosis or edema bilaterally.
Neuro: Grossly nonfocal, awake, alert and oriented x3.
[2024-04-14] MEDS: STERILE WATER FOR INJECTION IV (11:42)
[2024-04-14] MEDS: ZESTRIL 2.5 MG PO (12:07)
--- NOTE | 2024-04-14 15:04 | PTCARENOTE ---
Received patient from ICU to room 2244. Patient is AAO, assisted to the chair, call aviles in reach. VSS, patient offers no complaints, SR on the monitor with pulse ox of 93% on RA.
[2024-04-14] MEDS: CRESTOR 20 MG PO (18:07)
[2024-04-14] MEDS: LOVENOX 40 MG SC (18:07)
--- NOTE | 2024-04-14 18:23 | PTCARENOTE ---
Reinforced heart failure education, patient is receptive. Given scale to take home for when he is discharged.
[2024-04-14] MEDS: COREG 6.25 MG PO (19:43)
[2024-04-14] MEDS: OMNICEF 300 MG PO (20:10)
--- NOTE | 2024-04-14 21:02 | PTCARENOTE ---
Received patient at change of shift. SR on the monitor, HR in the 70s. Patient states that he 'hates the BiPAP machine' and requests to only use the nasal cannula overnight. Educated patient on the importance of proper oxygenation, pt verbalizes
understanding. Pt in bed with call aviles within reach.
[2024-04-15] VITALS (8 sets, daily range): BP systolic 103–125; BP diastolic 58–68; BMI 35.1
[2024-04-15 04:11] LABS: Hematocrit 46.5 % (39.0-52.0); Mean Corp Hgb Conc. 34.4 g/dL (33.0-37.0); Mean Corpuscular Hgb 30.2 pg (27.0-31.0); Mean Corpuscular Volume 87.7 fL (80.0-94.0); Mean Platelet Volume 11.3 fL (7.4-10.4); Platelet Count 160 10^3/uL (130-400); Red Cell Dist. Width 13.7 % (11.5-14.5); White Blood Cell Count 10.3 10^3/uL (4.8-10.8)
[2024-04-15] MEDS: DUONEB 3 ML INH (07:28)
[2024-04-15] MEDS: NICODERM TRANSDERMAL 21 MG TRANSDERM (08:30)
[2024-04-15] MEDS: COREG 6.25 MG PO ×2 (08:30→19:35)
[2024-04-15] MEDS: FLUSH (NSS) 2 FLUSH IV (08:31)
--- NOTE | 2024-04-15 09:35 | PTCARENOTE ---
Received patient this morning resting in bed, had a good night but did not attempt to use bipap. Patient complaining of constipation, tt to Dr. Skinner, colissac and miralax ordered. Patient waiting to eat and drink his coffee and will let me know if he
still needs it.
--- NOTE | 2024-04-15 09:39 | W.PN.CARDCBS ---
Addendum entered and electronically signed by Ender Corona MD 04/15/24 16:25:
I saw and examined the patient.
The Semiconductor Dies Loader's note was reviewed and I agree with the note.
Comment: Briefly, 63-year-old man presenting with decompensated heart failure found to have mild to moderately reduced left ventricular systolic function
Respiratory status is significantly improved with IV diuresis and treatment of suspected pneumonia/COPD
Suspect he may need maintenance diuretic on discharge
Troponin elevation which peaked at 2.1
Given newly identified cardiomyopathy we have recommended coronary angiography and the patient is agreeable, tentatively planned for tomorrow
For now continue aspirin, high intensity statin, beta-ravindra, RINA inhibitor
Rest per Bianca Palafox
Original Note:
Today's Communication / Plan
-
follow up echo today
NPO for cath in AM
GDMT of CM as able
may need daily po lasix
Impression / Plan
-
Primary Residential Sales: none
Assessment:
Presentation with SOB
Acute hypoxic respiratory failure, intubated in ER 04/10/24, extubated 04/13/2024
Leukocytosis
Suspected PNA/COPD exacerbation
Concern for acute CHF/flash pulm edema
Hypertensive emergency
Non-[place] ischemic injury
HTN
HLD
Tobacco use
FH of CAD
ECG 1 (presentation) sinus rhythm with biatrial abnormality and inferolateral ST abnormality concerning for inferolateral ischemia
ECG 2 sinus rhythm with biatrial enlargement, LVH nonspecific ST and T wave abnormalities inferolateral ST abnormalities have improved
On presentation First troponin 0.237, Second troponin 0.237
On presentation proBNP 1740
CTA chest no definite pulmonary embolism, there is moderate pericardial effusion described, there is bilateral oral opacification representing subsegmental atelectasis with small pleural effusions. Possible pneumonia
ECHO 04/11/24:
- Left ventricle is moderately dilated. Mild concentric left ventricular hypertrophy.
- Moderately- severely reduced left ventricular systolic function. Global hypokinesis. LVEF 30-35%
- Stage II diastolic dysfunction suggestive of abnormal relaxation and increased filling pressures.
- Mildly dilated left atrium.
- Mild to moderate mitral regurgitation.
- Mild to moderate aortic regurgitation
- Small pericardial effusion without evidence of hemodynamic compromise.
- Pleural effusion present.
Plan:
-No issues overnight. Reports some coughing, however reports he thinks he can lie flat
-he is on room air. continue treatment of PNA per primary service
-echo earlier this admission with EF 30-35% in setting of sepsis. peak trop of 2
-for repeat echo today
-continue asa
-LDL 113. on crestor 40mg QPM
-planned for cath in AM. reviewed procedure with patient 04/15
-continue treatment of cardiomyopathy. started on coreg, lisinopril this admission. consider addition of farxiga and aldactone as able. CM to assess cost of farxiga
-received diuresis earlier in admission. hopefully can obtain LVEDP during cath in AM. would consider for daily low dose po lasix moving forward
-In sinus rhythm with PVCs on review of telemetry overnight. K 3.9. check mag
-d/w nursing
Progress Note - Residential Sales
Subjective
Date of Service: April 15, 2024
No issues overnight. Reports mild continued cough and constipation
Objective
Labs:
04/15/24 02:48
04/14/24 04:19
Labs
Hgb 16.0 g/dL (13.0-18.0) 04/15/24 02:48
Hct 46.5 % (39.0-52.0) 04/15/24 02:48
Plt Count 160 10^3/uL (130-400) 04/15/24 02:48
PT 14.1 Sec (11.4-14.6) 04/11/24 05:22
INR 1.11 04/11/24 05:22
APTT 29.8 Sec (23.4-35.0) 04/11/24 00:53
Sodium 143 mmol/L (135-145) 04/14/24 04:19
Potassium 3.9 mmol/L (3.5-5.1) 04/14/24 04:19
BUN 35 mg/dl (9-20) H 04/14/24 04:19
Creatinine 0.9 mg/dL (0.7-1.3) 04/14/24 04:19
Glucose 102 mg/dl (70-99) H 04/14/24 04:19
Vital Signs and I&O:
Vital Signs
Temp Pulse Resp BP Pulse Ox
98.3 F 78 16 124/65 96
04/15/24 07:00 04/15/24 07:33 04/15/24 07:33 04/15/24 07:00 04/15/24 07:33
Vital Signs
Temp Pulse Resp BP Pulse Ox
98.3 F 78 16 124/65 96
04/15/24 07:00 04/15/24 07:33 04/15/24 07:33 04/15/24 07:00 04/15/24 07:33
Intake & Output
04/13/24 04/14/24 04/15/24 04/16/24
07:59 07:59 07:59 07:59
Intake Total 491.6 / 491.6 1140 / 1620 720 / 720
Output Total 1785 / 1885 1120 / 1120 525 / 525
Balance -1293.4 / -1393.4 20 / 500 195 / 195
Physical Exam
Physical Exam
GEN: No distress, awake, alert, oriented x3. obese
HEENT: supple, anicteric, mmm, eomi
LUNGS: Scattered wheezes
CV: Reg, S1/S2, 1/6 syst LSB
ABD: soft, BS+, NT/ND
EXT: No cyanosis, clubbing, edema
NEURO: Gross non-focal
SKIN: Warm, pink, dry. No rash
[2024-04-15] MEDS: LOW STRENGTH ASPIRIN 81 MG PO (10:20)
[2024-04-15] MEDS: OMNICEF 300 MG PO ×2 (10:21→20:41)
[2024-04-15] MEDS: MIRALAX 17 GRAMS PO (10:21)
[2024-04-15] MEDS: COLACE 100 MG PO ×2 (10:21→19:35)
[2024-04-15] MEDS: ZESTRIL 2.5 MG PO (10:22)
--- NOTE | 2024-04-15 10:45 | W.PN.HOSP.TC ---
Today's Communication/Plan
-
ECHO today
Possible Cardiac cath depending on ECHO
CW current treatments
Assessment / Plan
Assessment / Plan
Acute hypoxic respiratory failure likely multifactorial secondary to acute pulmonary edema from hypertensive crisis and Acute CHF and COPD/emphysema exacerbation along with possible pneumonia
Extubated 04/13
Currently on room air this morning
No active bronchospasm-off of steroids now
ABG 07/14 showed no hypercapnia. His admitting bicarb also was normal indicating no chronic Hypercapnia. I would hold on BiPAP for now. Follow with pulm as OP for PFTs eval.
On antibiotics for possible pneumonia-culture negative so far. Afebrile. Nontoxic. Switched to oral cefdinir. Follow leukocytosis which is improving.
Lost good amount of weight of 20 pounds. Diuretics on hold.
Acute CHF - Likely long standing hypertension, possibly flash pulmonary edema. BNP 1700. Trop peaked 2.8. Pericardial effusion w/o tamponade. Small pleural effusions. No significant peripheral edema.
echo 04/11 with reduced EF 30-35%; diastolic dysfunction
Ischemic evaluation per cardiology, beta-ravindra initiated
Will eventually need ARB/RINA inhibitor
Creatinine improved to 0.9
Diuretics on hold with good response and elevated Cr
Cardiology following - Repeat echocardiogram today and if his EF remains low for cardiac catheterization.
Renal insufficiency likely secondary to diuresis
Unknown baseline, continue to monitor
Improved creatinine
Prediabetes
A1c 5.8
Monitor
Hypertensive emergency - No acute intracranial process or focal deficit
Does not appear to be compliant with medications
- BP under goal
- On BB
- labetolol prn for now, goal SBP < 180 for now
- cardiology following
Enlarged thyroid gland-patient made aware about this finding today. Advised to follow-up with the ultrasound as an outpatient.
Tobacco dependence
- nicotine patch
DVT PPX - lovenox sq
Code status - Full Code
Discussed with RN
Tx to IVU pending
Anticipated Discharge: 24 - 48 hours
Subjective/Interval History
-
Date of Service: April 15, 2024
He feels great. Denies any shortness of breath. He could not tolerate BiPAP last night. He says he does not have any sleep apnea issues.
Currently on room air. Getting his echocardiogram at beside.
Denies any chest pain.
Objective Data
-
Labs:
Laboratory Results
04/15/24
02:48
WBC 10.3
Hgb 16.0
Hct 46.5
Plt Count 160
Vital Signs:
Vital Signs
Temp Pulse Resp BP Pulse Ox
98.3 F 75 16 111/63 96
04/15/24 07:00 04/15/24 10:22 04/15/24 07:33 04/15/24 10:22 04/15/24 07:33
I&O
04/14/24 04/15/24 04/16/24
06:59 06:59 06:59
Intake Total 1140 / 1140 720 / 720
Output Total 910 / 1135 750 / 750
Balance 230 / 5 -30 / -30
Review of Systems
-
Constitutional: Denies Fever
EENT: Denies Sore Throat
Respiratory: Denies Cough
Abdomen/GI: Denies Abdominal Pain, Nausea or Vomiting
Neuro: Denies Dizzy
Physical Exam
-
General: No Apparent Distress
HEENT: Moist Mucous Membranes
Respiratory: Clear to Auscultation
Cardiac: Regular Rhythm and S1/S2
GI: Soft
Neuro: AO x 3
Psych: Calm; Negative Confused or Agitated
Data Reviewed
-
Labs: Labs Reviewed by me
--- NOTE | 2024-04-15 11:32 | CM ---
Reviewed chart. Mr. Glover was transferred to IVU. Met with Mr. Glover to review discharge plans. He states prior to admission he.resides with his partner in a one story home with three steps to enter. He states prior to admission he was
independent with ambulation and adls. He states he has a walker and wheelchair at home. He states he has a prescription plan with [facility] and uses [facility]. He states his partner works a few day a week outside the home. Telephone
call to [facility] to check on the co-pay for Farxiga and Jardiance. His first co-pay for Farxiga would be $536.66 because he has not met his deductible of $545.00. After he mets his deductible his co-pay would be $11.00 a month. Jardiance
co-pay for the first script would be $556.60 because he has not met his deductible. After he mets his deductible it would be $11.00 a month. He would have to pay his deductible now and then again in June. Reviewed co-pays with him. He feels it
would be hard to due the deductible. Medical work-up in progress. The discharge plan is to return home with his partner when medically stable.
[2024-04-15 12:59] LABS: Magnesium 2.3 mg/dl (1.6-2.3)
[2024-04-15] MEDS: LOVENOX 40 MG SC (17:42)
[2024-04-15] MEDS: CRESTOR 40 MG PO (17:42)
--- NOTE | 2024-04-15 21:28 | PTCARENOTE ---
Pt rec'd at change of shift awake,alert with no complaints other than constipation. Pt denies nausea or Gi discomfort. Pt given Colace and Miralax on day shift. Due to cardiac cath scheduled in am pt does not wish to take any further laxatives.
Sinus on telemetry. Pt aware of npo status after mn.
[2024-04-15] MEDS: TYLENOL 650 MG PO (22:40)
--- NOTE | 2024-04-15 23:26 | PTCARENOTE ---
Pt with c/o pain left chest 'muscle'. Pt states he sore from echo done on day shift. Tylenol order obtained and dose given.
[2024-04-16] VITALS (12 sets, daily range): BP systolic 106–144; BP diastolic 63–111; BMI 35.4
[2024-04-16] MEDS: LOW STRENGTH ASPIRIN 81 MG PO (09:23)
[2024-04-16] MEDS: OMNICEF 300 MG PO ×2 (09:24→20:30)
[2024-04-16] MEDS: NICODERM TRANSDERMAL 21 MG TRANSDERM (09:24)
--- NOTE | 2024-04-16 11:06 | ITS.CL.CATH ---
[employer] - Catheterization
Cardiac Catheterization
Procedure Report:
LEFT HEART CATHETERIZATION
Date of Procedure: April 16, 2024
Referring: Dr. Farooq Oviedo
PROCEDURES:
1. Left heart catheterization with coronary angiography
INDICATION: This is a 63-year-old gentleman who presented to [facility] on 04/10[facility]2024 following the acute onset of profound shortness of breath and respiratory insufficiency requiring semiemergent intubation and mechanical ventilation. His
electrocardiogram was notable for nonspecific ST segment changes and his troponin was mildly elevated and peaked at 2.08 ng/mL. An echocardiogram was notable for global hypokinesis with an estimated ejection fraction of 30-35% with mild to moderate
mitral regurgitation and mild to moderate aortic insufficiency. He is slowly improved and repeat echocardiogram was estimated at 40%. The patient denied any alcohol use more than 3 or 4 drinks per year. He denies any illicit drug use. He smokes
about 1 pack/day. No prior PFTs.
ACCESS: Right radial artery, 6 Omani sheath
HEMODYNAMICS : (mmHg)
AO (s/d) : 146/80
LV (s/d) : 142/20
LVEDP : 45
CORONARY FINDINGS
DOMINANCE: Right
LEFT MAIN: Short and unobstructed
LEFT ANTERIOR DESCENDING: The LAD arises normally from the left main and runs in the anterior interventricular groove. The first diagonal branch arises from the mid LAD and has a long 80% mid stenosis. The mid LAD beyond the first diagonal branch
has an eccentric 70% stenosis and there is a long 70% mid-distal LAD stenosis. The distal LAD wraps around the apex.
CIRCUMFLEX: The circumflex is large caliber nondominant vessel. The first obtuse marginal branch is very small. The mid circumflex has tandem 40 and 50% stenoses. OM 2 appears occluded at its origin. OM 3 is small. A large OM 4 is the terminal
branch of the circumflex and has a 60-70% proximal stenosis
RIGHT CORONARY ARTERY: The right coronary artery is a dominant vessel with a 60% proximal stenosis. The mid RCA has tandem 60 and 70% stenoses. The distal RCA is somewhat ectatic supplying a moderate caliber PDA and posterolateral branch
VENTRICULOGRAPHY: Not done due to an elevated LVEDP measuring 45 mmHg
RADIATION SUMMARY: Fluoro Time (min): 10.6, Dose (mGy): 874, DAP (Gy.cm2) : 62
Closure Device: TR band
CONCLUSIONS
1. Moderate LV dysfunction with multivessel coronary artery disease including the mid LAD, first diagonal branch, OM1, and mid to distal RCA
2. Elevated LVEDP
RECOMMENDATIONS
1. IV diuresis and guideline directed medical therapy for LV dysfunction
2. Consult CT surgery
3. Consult pulmonary to optimize respiratory status for possible coronary artery bypass graft
Copy to: Dr. Farooq Oviedo
--- NOTE | 2024-04-16 11:22 | W.PN.HOSP.TC ---
Today's Communication/Plan
-
follow cardiac catheterization results
Check orthostatic blood pressure readings.
DC planning
Assessment / Plan
Assessment / Plan
Acute hypoxic respiratory failure likely multifactorial secondary to acute pulmonary edema from hypertensive crisis and Acute CHF and COPD/emphysema exacerbation along with possible pneumonia
Extubated 04/13
Currently on room air
No active bronchospasm-off of steroids now
ABG 07/14 showed no hypercapnia. His admitting bicarb also was normal indicating no chronic Hypercapnia. I would hold on BiPAP for now. Follow with pulm as OP for PFTs eval.
On antibiotics for possible pneumonia-culture negative so far. Afebrile. Nontoxic. Switched to oral cefdinir. Follow leukocytosis which is improving.
Lost good amount of weight of 20 pounds. Diuretics on hold.
Acute CHF - Likely long standing hypertension, possibly flash pulmonary edema. BNP 1700. Trop peaked 2.8. Pericardial effusion w/o tamponade. Small pleural effusions. No significant peripheral edema.
echo 04/11 with reduced EF 30-35%; diastolic dysfunction
Ischemic evaluation per cardiology, beta-ravindra initiated
Will eventually need ARB/RINA inhibitor
Creatinine improved to 0.9
Diuretics on hold with good response and elevated Cr
Cardiology following - Repeat echocardiogram shows still low EF but slightly improved compared to prior. Currently 40% EF. Cardiac catheterization for ischemia eval today .
Renal insufficiency likely secondary to diuresis
Unknown baseline, continue to monitor
Improved creatinine
Prediabetes
A1c 5.8
Monitor
Hypertensive emergency - No acute intracranial process or focal deficit
Does not appear to be compliant with medications
- BP under goal
- On BB
- cardiology following
- BP on lower and seem to have ortho dizziness . Check Ortho BP reads. Pt now initiated on GDMT meds.
Enlarged thyroid gland-patient made aware about this finding today. Advised to follow-up with the ultrasound as an outpatient.
Tobacco dependence
- nicotine patch
DVT PPX - lovenox sq
Code status - Full Code
Discussed with RN
Anticipated Discharge: Within 24 hours
Subjective/Interval History
-
Date of Service: April 16, 2024
Pt Feels well. He voices no specific complaints. Await cardiac at the transition today.
Denies shortness of breath or chest pain.
He felt little lightheaded getting up and going to the bathroom.
Objective Data
-
Vital Signs:
Vital Signs
Temp Pulse Resp BP Pulse Ox
97.8 F 76 16 106/67 96
04/16/24 07:55 04/16/24 07:54 04/16/24 07:55 04/16/24 07:54 04/16/24 07:55
I&O
04/15/24 04/16/24 04/17/24
06:59 06:59 06:59
Intake Total 720 / 720 1440 / 1440
Output Total 750 / 750 500 / 500
Balance -30 / -30 940 / 940
Review of Systems
-
Constitutional: Denies Fever
EENT: Denies Sore Throat
Respiratory: Denies Cough
Abdomen/GI: Denies Abdominal Pain, Nausea or Vomiting
Physical Exam
-
General: No Apparent Distress
Respiratory: Clear to Auscultation and Non Labored Respirations; Negative Accessory Resp Muscle Use
Cardiac: Regular Rhythm and S1/S2; Negative Tachycardic
Neuro: AO x 3
Psych: Calm; Negative Confused
--- NOTE | 2024-04-16 11:44 | CONSULT.CT ---
Consultation
-
Requesting Provider: Tony Juarez MD
Performing Provider: Sourav Oscar PA-C
Reason for Consultation: Multivessel CAD, CABG Consideration
Patient History
Physicians
Outpatient Him Clerk: None
Inpatient Him Clerk: Ender Peters MD / Tony Juarez MD
History of Present Illness
This is a 63-year-old male with past medical history significant for chronic obstructive pulmonary disease, COVID-19 infection about 2 months ago, hypertension, hyperlipidemia, tobacco abuse, congestive heart failure who presented to the hospital
with several days of progressively worsening shortness of breath. The patient had an acute exacerbation of the symptoms on the evening of 04/10/2024 presented to the hospital for evaluation. He was found to be hypoxic, volume overloaded, with
evidence of pneumonia and subsequently intubated. Transthoracic echocardiogram revealed reduced ejection fraction of 30% with moderate MR moderate AI. Patient was diuresed and subsequently extubated successfully a few days later. He did have a
CTA of his chest during this event which did not reveal any pulmonary embolus however it did show significant pneumonia and pulmonary edema. He was placed on antibiotics. Cardiology was consulted given the newly found reduced ejection fraction and
ultimately the patient underwent ischemic workup. This revealed multivessel coronary artery disease. Given these findings and the patient's young age we are asked to consider CABG as the definitive revascularization strategy.
Currently the patient is resting comfortably on room air. He complains of a productive cough. He is afebrile. His leukocytosis has resolved. He denies any history of CVA/TIA, bleeding or clotting disorders, melena or hematochezia, varicose veins
or vein stripping, liver kidney dysfunction that he is aware of, history of dysphagia esophageal dilations, history of chest surgery or radiation. He does have a significant family history of coronary artery disease. Both his mother and father
underwent CABG in the past. He is currently abusing tobacco. He smokes 1 pack/day for at least 40 years. He tells me he has never been formally diagnosed with COPD however he does have evidence of centrilobular emphysema on CTA. He does not
recall if he is ever had PFTs. He denies alcohol use or recreational drug use. He lives with a roommate. He does not use a cane or walker. He is independent with his ADLs.
Past Medical History
Hypertension
Hyperlipidemia
Congestive heart failure
COPD/emphysema
Tobacco abuse
History of COVID-19 2 months ago
Past Surgical History
Bilateral total hip arthroplasties
Social History
Alcohol: None
Drug: None
Tobacco: Smoker (40 pack years)
Living: With Roomate
Employment: Retired
Allergies
Allergy/AdvReac Type Severity Reaction Status Date / Time
No Known Allergies Allergy Verified 04/11/24 01:31
Home Medications
�Medication �Instructions �Recorded �Confirmed �Type
No Meds [No Current Medications] 04/14/24 04/14/24 History
Review of Systems
-
History Source: Patient
General: Reports Fatigue
HEENT: Reports No Symptoms
Respiratory: Reports Cough (Productive)
Cardiac: Reports No Symptoms
Abdomen/GI: Reports No Symptoms
: Reports No Symptoms
Musculoskeletal: Reports No Symptoms
Skin: Reports No Symptoms
Neurological: Reports No Symptoms
Vascular: Reports No Symptoms
Physical Exam
Vital Signs
Temp 97.8 F 04/16/24 07:55
Temp route: Oral 04/16/24 07:55
Pulse 76 04/16/24 07:54
Rhythm: Normal sinus rhythm 04/15/24 19:45
With- PAC's 04/15/24 19:45
Resp Rate 16 04/16/24 07:55
Systolic BP: 169 04/13/24 09:19
Blood pressure 106/67 04/16/24 07:54
Blood pressure extremity used: Left upper arm 04/16/24 07:55
Position: Sitting 04/16/24 07:55
MAP (cuff-Jose Monitor) 79 04/16/24 07:54
SaO2 96 04/16/24 07:55
Nasal Cannula flow liters per minute 2 04/15/24 07:33
Oxygen Mode of Delivery Room air 04/16/24 07:55
Other oxygen comment pt refused BiPAP 04/14/24 22:15
Flow liters per minute # 4 04/13/24 15:34
% Oxygen delivered 40 04/13/24 07:27
Pulse Ox at Rest 89 04/14/24 11:30
Can the patient verbally communicate their pain? Yes 04/15/24 23:40
Pain scale rating: Asleep 04/15/24 23:40
Arterial Systolic Pressure 187 04/13/24 11:50
Arterial Diastolic Pressure 85 04/13/24 11:50
MAP (E-Etwc-Fovbzew Monitor) 122 04/13/24 11:50
Actual Weight 118.2 kg 04/16/24 08:27
Body Mass Index (BMI) 35.4 04/16/24 08:27
Supine- Blood Pressure 103/60 04/15/24 16:02
Supine- Pulse 86 04/14/24 11:30
Sitting- Blood Pressure 169/92 04/13/24 15:34
Sitting- Pulse 110 04/13/24 15:34
Heart rate after activity 88 04/15/24 16:02
Oxygen Saturation with Activity 94 04/14/24 11:30
Labs
04/15/24 02:48
04/14/24 04:19
PT 14.1 Sec (11.4-14.6) 04/11/24 05:22
APTT 29.8 Sec (23.4-35.0) 04/11/24 00:53
Hemoglobin A1c 5.8 % (4.0-5.6) H 04/11/24 05:22
Troponin I 1.610 ng/ml H* 04/12/24 04:26
Cug-I-Swasmrhueex Pept 458 pg/ml 04/13/24 03:35
Arterial Blood Gases
pH 7.37 (7.35-7.45) 04/13/24 09:11
pCO2 47 mmHg (35-48) 04/13/24 09:11
pO2 104 mmHg (83-108) 04/13/24 09:11
HCO3 27.2 mmol/L (21-28) 04/13/24 09:11
Base Excess 1.1 mmol/L 04/13/24 09:11
ABG O2 Sat (Measured) 99.1 % (94-98) H 04/13/24 09:11
Sodium 137 mMOL/L (136-145) 04/11/24 23:57
Potassium 3.6 mMOL/L (3.5-5.1) 04/11/24 23:57
O2 Delivery Level 04/13/24 09:11
Urinalysis
Urine Color Yellow 04/11/24 10:06
Urine Clarity Clear (Clear) 04/11/24 10:06
Urine pH 5.0 (5.0-9.0) 04/11/24 10:06
Ur Specific Ayr 1.010 (<1.030) 04/11/24 10:06
Urine Ketones Negative (Negative) 04/11/24 10:06
Urine Occult Blood Trace (Negative) A 04/11/24 10:06
Urine Bilirubin Negative (Negative) 04/11/24 10:06
Ur Leukocyte Esterase 1+ (Negative) A 04/11/24 10:06
Urine RBC 3-6 /HPF (0-2) A 04/11/24 10:06
Urine WBC 11-15 /HPF (0-5) A 04/11/24 10:06
Ur Squamous Epith Cells 3-5 /LPF (Few) 04/11/24 10:06
Urine Glucose Negative (Negative) 04/11/24 10:06
Urine Albumin Negative (Neg - Trace) 04/11/24 10:06
Diagnostic Studies
Left heart cath 04/16/2024 was independently reviewed. There is multivessel coronary disease. Formal report is pending.
Exam
General: Well Developed, Well Nourished and No Apparent Distress
HEENT: Normocephalic and Anicteric
Neck: Trachea Midline
Respiratory: Clear
Cardiac: S1/S2 and Regular Rhythm
GI: Soft, Non Tender and Non Distended
Rectal: Deferred by Provider
Skin: Warm and Dry
Neuro: Awake and AO x 3
Psych: Calm
Assessment / Plan
-
1. Multivessel coronary artery disease: Given the patient's young age and multivessel coronary artery disease we will consider CABG. Preoperative risk stratification has been ordered. I discussed the nature of coronary artery disease as well as
CABG surgery with the patient answered his questions to his satisfaction. The patient will be independently evaluated by the attending surgeon and definitive surgical candidacy/timing will be established. Given that the patient is currently being
treated for pneumonia with antibiotics and is recovering from recent intubation and COPD exacerbation it may be best to wait until he is medically optimized prior to pursuing CABG. Medical management of his coronary artery disease in the interim
per cardiology.
2. Recent ventilator dependent respiratory failure, COPD exacerbation, pneumonia: Pulmonary on board. Currently on antibiotics. On room air but still has a productive cough. Will need complete PFTs. He has already had a CTA of his chest which
does not reveal significant ascending aortic calcifications. He does have some calcification of his aortic arch and descending aorta.
3. Newly diagnosed HFrEF, left ventricular ejection fraction approximately 35%: Management per cardiology.
4. Moderate MR, moderate AI: Surgeon will review the echocardiogram and determine whether or not REMI is necessary prior to surgery.
5. Hypertension
6. Hyperlipidemia
7. Tobacco abuse: Cessation counseling provided particularly given pending CABG
Thank you for allowing us to participate in the care of your patient. The attending surgeon will independently evaluate the patient and provide any changes to the above assessment and plan in the form of an addendum.
Please note this dictation was created using voice recognition software. Please excuse any phonetic or grammatical errors as result.
Data Reviewed
-
EKG: Tracing Personally Visualized and interpreted
Lay Brother: Image Personally Visualized and interpreted
Echo: Image Personally Visualized and interpreted
Radiology: Image Personally Visualized and interpreted
CT Scan: Image Personally Visualized and interpreted
Labs: Labs Reviewed by me
Total Time Spent with Patient (in minutes): 67
[2024-04-16] MEDS: ZESTRIL PO (12:10)
[2024-04-16] MEDS: COLACE 100 MG PO ×2 (12:30→19:52)
[2024-04-16] MEDS: LASIX 40 MG IV ×2 (12:30→17:51)
[2024-04-16] MEDS: COREG 6.25 MG PO ×2 (12:30→19:52)
[2024-04-16] MEDS: MIRALAX 17 GRAMS PO (12:31)
--- NOTE | 2024-04-16 14:31 | CM ---
Reviewed chart. Met with Mr. Glover to review discharge plans. He states he is feeling well. He was inquiring about getting a PCP. Gave his the list of [facility] and [facility]. Prior to admission he
resides with a partner in a one story home with three steps to enter. Prior to admission He has a prescription plan with [facility] and he was independent with ambulation and adls. He has a walker and wheelchair at home. He ambulates in the
room independently and ambulated 250 feet with a walker. He has a prescription plan with [facility] and uses [facility]. Medica work-up in progress. The discharge plan is to return home with his partner when medically stable.
--- NOTE | 2024-04-16 14:45 | PTCARENOTE ---
R band is off, dsg D+I. Pt sent for PFT.
[2024-04-16] MEDS: CRESTOR 40 MG PO (17:49)
[2024-04-16] MEDS: LOVENOX 40 MG SC (17:49)
--- NOTE | 2024-04-16 23:57 | PTCARENOTE ---
Pt rec'd at change of shift awake,alert with c/o continued constipation. Pt states he passed 2 small stools, mild abd cramping pre but better after passing stool. MOM ordered obtained but pt refused stating he wasn't in any pain at present and would
like to wait and see.
Sinus on telemetry. Right radial site ecchymotic but soft/good radial pulse. cxr and panelipse completed in radiology.
[2024-04-17] VITALS (7 sets, daily range): BP systolic 82–140; BP diastolic 43–92; BMI 34.8
--- NOTE | 2024-04-17 00:24 | PTCARENOTE ---
Pt refused Lisinopril at evening rounds. Pt stated he took the med before when getting hip surgery and had 'severe hypotension'.
[2024-04-17 05:18] LABS: B.E. 3.7 mmol/L; HCO3 27.7 mmol/L (21-28); O2 Saturation % 95.4 % (94-98); PCO2 39 mmHg (35-48); PO2 68 mmHg (83-108); pH 7.46 (7.35-7.45)
[2024-04-17 06:04] LABS: Hematocrit 49.5 % (39.0-52.0); Hemoglobin 17.5 g/dL (13.0-18.0); Mean Corp Hgb Conc. 35.4 g/dL (33.0-37.0); Mean Corpuscular Hgb 30.3 pg (27.0-31.0); Mean Corpuscular Volume 85.8 fL (80.0-94.0); Platelet Count 167 10^3/uL (130-400); Red Blood Cell Count 5.77 10^6/uL (4.70-6.10); Red Cell Dist. Width 13.1 % (11.5-14.5); White Blood Cell Count 14.1 10^3/uL (4.8-10.8)
[2024-04-17 06:13] LABS: PT 14.2 Sec (11.4-14.6)
[2024-04-17 06:14] LABS: APTT 33.1 Sec (23.4-35.0)
[2024-04-17 06:27] LABS: ALT (SGPT) 75 U/L (0-50); AST (SGOT) 32 U/L (17-59); Alkaline Phosphatase 54 U/L (38-126); Blood Urea Nitrogen 23 mg/dl (9-20); Calcium 9.2 mg/dl (8.4-10.2); Carbon Dioxide 27 mmol/L (22-30); Chloride 100 mmol/L (98-107); Direct Bilirubin 0.4 mg/dl (0.0-0.4); Estimated Creatinine Clearance 122 ml/min; Glucose 104 mg/dl (70-99); Potassium 3.9 mmol/L (3.5-5.1); Sodium 138 mmol/L (135-145); Total Bilirubin 1.4 mg/dl (0.2-1.3); Total Protein 6.2 g/dl (6.3-8.2); eGFR > 60.00
[2024-04-17] MEDS: MIRALAX 17 GRAMS PO (08:42)
[2024-04-17] MEDS: COREG 6.25 MG PO ×2 (08:43→20:23)
[2024-04-17] MEDS: LOW STRENGTH ASPIRIN 81 MG PO (08:48)
[2024-04-17] MEDS: COLACE 100 MG PO ×2 (08:49→20:24)
[2024-04-17] MEDS: OMNICEF 300 MG PO ×2 (08:50→20:24)
[2024-04-17] MEDS: NICODERM TRANSDERMAL 21 MG TRANSDERM (08:50)
--- NOTE | 2024-04-17 08:52 | W.PN.PUL3 ---
Today's Communication / Plan
-
PFT with moderate restriction, but encouraged ambulation/IS
In terms of periop risk, his would be low, he has already tolerated intubation/extubation
I discussed this with patient
Cards planning for possible CABG pending further diuresis
We will follow postoperatively as well if this does proceed
Assessment
-
63-year-old male tobacco smoker with a past medical history of hypertension + hyperlipidemia who presented with sudden onset of shortness of breath. No chest pain reported. EMS arrived and patient was very agitated and even removed 2 IVs. He was
placed onto CPAP and tried to remove that mask as well. He was given aspirin albuterol en route and was tolerating 15 L/min via NRB with saturations of 92%. He reportedly had COVID-19 two months ago. History obtained from the patient significant
other and medical records. She apparently awoke and overnight prior to arrival and found him having significant shortness of breath and nominal and was called. He was intubated in the ER due to continued respiratory distress. Initial vitals in
the ER showed he was hypertensive to 231/116, saturating 85% on BiPAP, and heart rate 92. Once he was intubated saturations improved to 100%. Initial labs showed leukocytosis of 21.9, Hb 19.5, respiratory acidosis with pH 7.15, pCO2 76, serum
bicarbonate level 26, serum sodium 149, glucose 160, initial troponin 0.037, proBNP elevated at 1740, and procalcitonin negative at 0.15. Urinalysis showed +1 leukocyte esterase and 11�15 urine WBC. COVID-19 antigen was negative, as well as flu
A/B (negative). CXR obtained showed diffusely prominent interstitial markings likely due to interstitial edema versus pneumonitis. CT head showed no acute intracranial abnormality. CTA chest showed no central PE (limited study) with subsegmental
atelectasis with small pleural effusions and bilateral opacification with cardiomegaly, CAD and a moderate pericardial effusion. In the ER he was given albuterol, DuoNebs, Decadron, Lasix 40 mg IV x 1, Zosyn, and then sedated with fentanyl. He was
then brought to the ICU for further care and turbo operator services consulted for additional management/recommendations.
Acute respiratory failure with hypoxia + hypercapnia due to acute pulmonary edema from hypertensive crisis + ADHF now on mechanical ventilation
- Intubated 04/11/2024
- Extubated 04/13
Leukocytosis likely reactive
Acute pulmonary edema likely due to hypertensive crisis in the setting of acute decompensated heart failure/combined acute HFrEF with diastolic heart failure
Moderate-size pericardial effusion with small bilateral pleural effusions
Prediabetes (HbA1c: 5.8 on 04/11/2024)
Elevated troponin likely due to demand ischemia with type II ME; unable to rule out NSTEMI - peaked at 2.08 on 04/11/2024
Bibasilar atelectasis
Conditions present DIRECTOR OF ANESTHESIA SERVICES
Active tobacco use
Centrilobular emphysema with suspected COPD
PFT with moderate restriction
History of COVID-19 (reported to be positive in 01/2024)
History of hypertension
History of hyperlipidemia
Obesity BMI 34
Plan
At this time, patient appears to be comfortable, presently on room air
ABG pre-extubation noted, mild CO2 retention noted
Likely with undiagnosed ED
Continue with management per primary service, cardiology
Continues with diuresis, blood pressure management
Appreciate cardiology input
Likely to need CABG per team
Chest x-ray 04/12 with left basilar atelectasis, cardiomegaly
Echocardiogram 04/11 with EF 30%, diastolic dysfunction, moderate MR
Reviewed importance of compliance with recommendations
COPD history, PFT not showing significant obstruction, he has moderate restriction
This is likely from BMI/deconditioning/atelectasis
Continue DuoNebs
Discontinue Flovent
Continue IS efforts, ambulation
In terms of preop risk, he has tolerated intubation/extubation previously-- do not forsee high risk based on his level of function
We have discussed improving his TLC with exercise/IS to encourage quicker postop recovery
I think can proceed with needed intervention from our perspective, we will follow postop as well
Low suspicion for pneumonia, could stop abx and observe off
Tracheal culture not sent
Urine antigens for Legionella + strep pneumonia are both negative
Nicotine patch
Discussed importance of tobacco cessation
Maintain euglycemia with goal BG 140-180
Trend H/H and transfuse if needed to keep Hb>7g/dL; keep plt>20k, unless there is concern for bleeding then keep plt>50k
DVT ppx: LMWH
Patient would benefit from outpatient sleep evaluation.
Encouraged him to identify primary physician and then follow-up with pulmonary as able
Data:
CTA Chest 04/11/2024: Extremely limited study, as described, without findings to confirm pulmonary embolism to the level of the proximal segmental branches bilaterally. Bilateral opacification most likely representing subsegmental atelectasis with
small pleural effusions. Pneumonia cannot be excluded. Cardiomegaly, coronary artery calcifications and moderate pericardial effusion. Enlarged heterogeneous thyroid gland, left lobe larger in size than right.
CXR 04/16/24- Improvement in atelectasis, with mild residual bibasilar atelectasis. Cardiac silhouette size is enlarged with no evidence for pulmonary edema.
CXR 04/12/2024: Left hemidiaphragm is obscured suggesting left lower lobe subsegmental atelectasis and/or pneumonia and possible small left pleural effusion. Left midlung opacity slightly improved.
PFT 04/16/24: Fev1 2.37L 66%, FVC 3.2L 68% ratio 74. TLC 5.32L 69%, DLCO 81% (moderate restriction)
Reports and relevant images were personally reviewed.
Total time spent on this encounter __51__ includes review of history, physical exam, medications, laboratory data, personal review of imaging, extensive review of outpatient records, discussion with care team and respiratory therapy.
Subjective Data
-
Date of Service:
Date of Service: April 17, 2024
Chief Complaint: Pulmonary Follow Up
Subjective:
Asked to re-eval for preop testing
No new complaints, stable on RA
Feels little to no SOB
Objective Data
Data Reviewed
Vital Signs / I&O / Oxygen:
Vital Signs
Temp Pulse Resp BP Pulse Ox
98.6 F 73 18 101/64 96
04/17/24 05:16 04/17/24 05:16 04/17/24 05:16 04/17/24 05:16 04/17/24 05:16
Intake and Output
04/16/24 04/17/24 04/18/24
06:59 06:59 06:59
Intake Total 1440 / 1440
Output Total 500 / 500 2225 / 2225
Balance 940 / 940 -2225 / -2225
SaO2 [CPAP/PSV] 96
SaO2 [A/C] 94
SaO2 96
Nasal Cannula flow liters per 2
minute
Physical Exam
General: Comfortable and Other (NAD)
HEENT: Normocephalic, Anicteric and Moist Mucous Membranes
Cardiovascular: S1-S2 and Regular Rhythm
Respiratory: Clear and Non-Labored Respirations
GI: Soft, Non Distended and Non Tender
Neurology: Awake, Alert, Oriented and No Motor Deficits
Skin: Warm, Dry and Good Color
Labs/Micro/Reports
Lab Data
04/17/24 05:56
04/17/24 05:56
Laboratory Results
04/17/24 04/17/24
05:10 05:56
PT 14.2
INR 1.10
APTT 33.1
pH 7.46 H
pCO2 39
pO2 68 L
HCO3 27.7
O2 Delivery Level
[2024-04-17] MEDS: LASIX 40 MG IV ×2 (08:53→16:46)
--- NOTE | 2024-04-17 11:18 | W.PN.UPDATE ---
Update Note
Progress Note Update
63-year-old man, current smoker, no prior history of CAD, admitted with vent dependent respiratory failure related to CHF and pneumonia with underlying COPD. Initial EF 30-35% upon presentation with mild to moderate mitral regurgitation and mild to
moderate aortic regurgitation, follow-up echo with EF of 40%. With appropriate medical management successfully extubated and underwent cardiac catheterization yesterday which revealed 70% mid LAD, 70% mid to distal LAD and 80% first diagonal
stenosis with tandem 40 and 50% mid circumflex stenosis, occluded OM 2, large OM 4 with 60 to 70% proximal stenosis, RCA with 60% proximal stenosis and 60 to 70% mid stenosis. LVEDP was 45.
Currently he feels well.
PMH: None prior to admission, but underlying hypertension, hyperlipidemia, COPD
Allergies: None
Meds on admission: None
Current medications: Cefdinir, subcu Lovenox, nicotine patch, carvedilol 6.25 twice daily, Colace, aspirin, rosuvastatin 40, furosemide 40 IV twice daily, lisinopril 5 twice daily
101/64, pulse 73, respiratory rate 18, intake and output incomplete but urine is brisk, weight is 116.2 kg, down 2 kg, head neck exam unremarkable, lungs are relatively clear, occasional extrasystoles very soft systolic murmur JVD okay, abdomen
obese and benign not much edema, pulses palpable
White count 14.1, hemoglobin 17.5, platelets 167, ABG 7.46, pCO2 39, pO2 68, BUN and creatinine 23 and 0.8, potassium 3.9
Plan:
He appears stable despite three-vessel disease with LV dysfunction and modest aortic and mitral regurgitation.
LVEDP was markedly elevated but no overt signs of heart failure, continue IV Lasix for now and convert to oral furosemide in 24 to 48 hours.
Blood pressure is marginal, he has had trouble with lisinopril in the past. Discussed with Dr. Skinner, we will try low-dose losartan and possibly add spironolactone. For now, hold off on Entresto and Farxiga.
Plan will likely be for optimization of medical management and discharge perhaps in 24 to 48 hours with outpatient follow-up to CT surgery.
Continue carvedilol at present.
Patient states he will not smoke.
--- NOTE | 2024-04-17 12:56 | W.PN.HOSP.TC ---
Today's Communication/Plan
-
See plan above
Assessment / Plan
Assessment / Plan
Acute hypoxic respiratory failure likely multifactorial secondary to acute pulmonary edema from hypertensive crisis and Acute CHF and COPD/emphysema exacerbation along with possible pneumonia
Extubated 04/13
Currently on room air
No active bronchospasm-off of steroids now
ABG 07/14 showed no hypercapnia. His admitting bicarb also was normal indicating no chronic Hypercapnia. I would hold on BiPAP for now. Follow with pulm as OP for PFTs eval.
On antibiotics for possible pneumonia-culture negative so far. Afebrile. Nontoxic. Switched to oral cefdinir. Follow leukocytosis which is fluctuating.
Acute CHF - Likely long standing hypertension, possibly flash pulmonary edema. BNP 1700. Trop peaked 2.8. Pericardial effusion w/o tamponade. Small pleural effusions. No significant peripheral edema.
echo 04/11 with reduced EF 30-35%; diastolic dysfunction
Repeat echocardiogram shows still low EF but slightly improved compared to prior. Currently 40% EF. Cardiac catheterization for ischemia eval 04/16 showed elevated left ventricular end-diastolic pressures and as well as multi vessel coronary
disease.
Lasix resumed. Follow creatinine closely.
Switch from lisinopril to ARB due to patient mentioned side effects of lisinopril. Continue the beta-ravindra. GDMT per cardiology.
Multivessel CAD-appreciate CT surgery input. Optimize medical conditions first prior to surgical intervention. Consult pulmonary for preop pulmonary eval..
Renal insufficiency likely secondary to diuresis
Unknown baseline, continue to monitor
Improved creatinine
Prediabetes
A1c 5.8
Monitor
Hypertensive emergency - No acute intracranial process or focal deficit
Does not appear to be compliant with medications
- BP under goal
- Follow Ortho BP
Enlarged thyroid gland-patient made aware about this finding today. Advised to follow-up with the ultrasound as an outpatient.
Tobacco dependence
- nicotine patch
DVT PPX - lovenox sq
Code status - Full Code
Discussed with RN
[facility] today about the medications.
Switched lisinopril to low dose Losartan.
Likely Spironolactone in am .
Total time spent on today's encounter was 52 minutes which included time spent in counseling the patient/family regarding diagnosis and treatment plan as listed above, goals of care, and symptom management. Case was discussed with nursing staff,
specialists, and care coordinators/case management. All labs and imaging personally reviewed by me. Remainder the time spent in detailed review of previous records, lab data, imaging, and other medical provider documentation.
Anticipated Discharge: 24 - 48 hours
Subjective/Interval History
-
Date of Service: April 17, 2024
Feels improved with the breathing. Denies any chest pain.
Brings to my attention that when he had lisinopril in the past he had significant drop in blood pressure. He is hesitant to take lisinopril. He had 2 doses here of 2.5 mg and he says he felt dizzy after taking lisinopril. No history of renal
artery stenosis.
Objective Data
-
Labs:
Laboratory Results
04/17/24 04/17/24
05:10 05:56
WBC 14.1 H
Hgb 17.5
Hct 49.5
Plt Count 167
PT 14.2
INR 1.10
APTT 33.1
HCO3 27.7
Sodium 138
Potassium 3.9
Chloride 100
Carbon Dioxide 27
BUN 23 H
Creatinine 0.8
Glucose 104 H
Calcium 9.2
Total Bilirubin 1.4 H
AST 32
ALT 75 H
Alkaline Phosphatase 54
Vital Signs:
Vital Signs
Temp Pulse Resp BP Pulse Ox
98.6 F 69 18 121/66 98
04/17/24 11:25 04/17/24 12:30 04/17/24 11:25 04/17/24 11:22 04/17/24 11:25
I&O
04/16/24 04/17/24 04/18/24
06:59 06:59 06:59
Intake Total 1440 / 1440 480 / 480
Output Total 500 / 500 2225 / 2225 750 / 750
Balance 940 / 940 -2225 / -2225 -270 / -270
Review of Systems
-
Constitutional: Denies Fever
Respiratory: Denies Trouble Breathing
Cardiac: Denies Chest Pain
Abdomen/GI: Denies Abdominal Pain, Nausea or Vomiting
Neuro: Denies Dizzy
Physical Exam
-
General: No Apparent Distress
HEENT: Moist Mucous Membranes
Respiratory: Non Labored Respirations; Negative Accessory Resp Muscle Use
Cardiac: Regular Rhythm and S1/S2
GI: Soft
Neuro: AO x 3
Psych: Calm; Negative Confused
Data Reviewed
-
Labs: Labs Reviewed by me
--- NOTE | 2024-04-17 13:14 | CM ---
Reviewed chart. Met with Mr. Glover to review discharge plans. He states he is feeling well and is hoping he will go home soon and come back at a later date for his heart Surgery. Prior to admission he resides with his partner in a one story
home with three steps to enter. Prior to admission he was independent with ambulation and adls. He currently does not have a PCP. Gave him [facility] of PCP and the [facility]. He has a walker and wheelchair at home.
He has a prescription plan and uses [facility]. Medical work-up in progress. The discharge plan is to retur home with his partner when medically stable.
--- NOTE | 2024-04-17 14:02 | PTCARENOTE ---
Pt sent US carotids and venous mapping
--- NOTE | 2024-04-17 15:10 | W.PN.UPDATE ---
Update Note
Progress Note Update
Pt seen and examined, cath reviewed. Hospitalization reviewed
Pleasant 63 y/o with hx/o of tobacco abuse and hyptn admitted in respiratory distress likely from hypertensive crisis.
No cp prior to admission. + trop spill likely from demand ischemia
Cath confirms 3vcad, non prox lad, no lesion greater than 70%
Echo with ef 40%, mild to mod valvular disease.
Pt feels well now
Long discussion regarding his 3vcad and rec for cabg. Pt is agreeable to cabg, however he would like to go home and come back.
Given his cath, I think this is reasonable, however, he probably would benefit from 24-48 hrs more of inpt management prior to discharge.
If pt doesnt go home, he can be on next weeks schedule, if he goes home, we will make all arrangements prior to discharge.
[2024-04-17] MEDS: CRESTOR 40 MG PO (17:52)
[2024-04-17] MEDS: LOVENOX 40 MG SC (17:52)
[2024-04-18] VITALS (7 sets, daily range): BP systolic 104–120; BP diastolic 52–63; BMI 34.4
--- NOTE | 2024-04-18 02:53 | PTCARENOTE ---
Pt. in NSR with PVC's, VSS, no complaints of CP/SOB or any discomfort. Very pleasant. Currently sleeping.
[2024-04-18 04:43] LABS: Hematocrit 51.1 % (39.0-52.0); Hemoglobin 18.3 g/dL (13.0-18.0); Mean Corp Hgb Conc. 35.8 g/dL (33.0-37.0); Mean Corpuscular Hgb 31.6 pg (27.0-31.0); Mean Corpuscular Volume 88.1 fL (80.0-94.0); Mean Platelet Volume 11.5 fL (7.4-10.4); Platelet Count 176 10^3/uL (130-400); White Blood Cell Count 16.5 10^3/uL (4.8-10.8)
[2024-04-18 05:12] LABS: Blood Urea Nitrogen 23 mg/dl (9-20); Calcium 9.3 mg/dl (8.4-10.2); Carbon Dioxide 25 mmol/L (22-30); Chloride 98 mmol/L (98-107); Estimated Creatinine Clearance 121 ml/min; Glucose 112 mg/dl (70-99); Potassium 3.8 mmol/L (3.5-5.1); Sodium 138 mmol/L (135-145); eGFR > 60.00
--- NOTE | 2024-04-18 08:18 | W.PN.CARDCBS ---
Today's Communication / Plan
-
Okay for discharge, see medication recommendations below
Impression / Plan
-
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
Assessment:
Presentation with SOB
Acute hypoxic respiratory failure, intubated in ER 04/10/24, extubated 04/13/2024
Leukocytosis
Suspected PNA/COPD exacerbation
Concern for acute CHF/flash pulm edema
Hypertensive emergency
Non-HI ischemic injury
HTN
HLD
Tobacco use
FH of CAD
ECG 1 (presentation) sinus rhythm with biatrial abnormality and inferolateral ST abnormality concerning for inferolateral ischemia
ECG 2 sinus rhythm with biatrial enlargement, LVH nonspecific ST and T wave abnormalities inferolateral ST abnormalities have improved
On presentation First troponin 0.237, Second troponin 0.237
On presentation proBNP 1740
CTA chest no definite pulmonary embolism, there is moderate pericardial effusion described, there is bilateral oral opacification representing subsegmental atelectasis with small pleural effusions. Possible pneumonia
ECHO 04/11/24:
- Left ventricle is moderately dilated. Mild concentric left ventricular hypertrophy.
- Moderately- severely reduced left ventricular systolic function. Global hypokinesis. LVEF 30-35%
- Stage II diastolic dysfunction suggestive of abnormal relaxation and increased filling pressures.
- Mildly dilated left atrium.
- Mild to moderate mitral regurgitation.
- Mild to moderate aortic regurgitation
- Small pericardial effusion without evidence of hemodynamic compromise.
- Pleural effusion present.
Plan:
Overall stable from cardiac standpoint.
Given his situation, allowing him time to recuperate is reasonable. No objection to discharge.
Recommended cardiac medications at discharge:
Carvedilol 12.5 mg twice daily (increased from inpatient dose)
Aspirin 81 mg a day
Rosuvastatin 40 mg a day
Furosemide 40 mg daily
Losartan 12.5 mg daily
Potassium 20 meq daily
Given increase in carvedilol at discharge (for PVCs) would not add Entresto
spironolactone, Farxiga at this time
Check BMP in [address] surgery to arrange for surgical date
Progress Note - Dairy Farmworker
Subjective
Date of Service: April 18, 2024:
63-year-old man, current smoker, no prior history of CAD, admitted with vent dependent respiratory failure related to CHF and pneumonia with underlying COPD. Initial EF 30-35% upon presentation with mild to moderate mitral regurgitation and mild to
moderate aortic regurgitation, follow-up echo with EF of 40%. With appropriate medical management successfully extubated and underwent cardiac catheterization yesterday which revealed 70% mid LAD, 70% mid to distal LAD and 80% first diagonal
stenosis with tandem 40 and 50% mid circumflex stenosis, occluded OM 2, large OM 4 with 60 to 70% proximal stenosis, RCA with 60% proximal stenosis and 60 to 70% mid stenosis. LVEDP was 45.
Currently he feels well. Discussed earlier he would like ~ week to make arrangements for various reasons prior to surgery.
PMH: None prior to admission, but underlying hypertension, hyperlipidemia, COPD
Allergies: None
Meds on admission: None
Current medications: Cefdinir, subcu Lovenox, nicotine patch, carvedilol 6.25 twice daily, Colace, aspirin, rosuvastatin 40, furosemide 40 IV twice daily, lisinopril 5 twice daily
112/61, pulse 73, respiratory rate 18, afebrile, intake and output -1.4 L,Weight yesterday was down 2 kg, pending today, head neck exam unremarkable, lungs are clear, regular rate and rhythm occasional extrasystoles, abdomen benign extremities
without clubbing cyanosis or edema, JVD okay, neuro, integumentary, musculoskeletal all intact
BUN and creatinine are 23 and 0.8 with potassium of 3.8.
Telemetry reviewed: No complex ectopy, PVCs, rare couplets
Objective
Labs:
04/18/24 04:06
04/18/24 04:06
Labs
Hgb 18.3 g/dL (13.0-18.0) H 04/18/24 04:06
Hct 51.1 % (39.0-52.0) 04/18/24 04:06
Plt Count 176 10^3/uL (130-400) 04/18/24 04:06
PT 14.2 Sec (11.4-14.6) 04/17/24 05:56
INR 1.10 04/17/24 05:56
APTT 33.1 Sec (23.4-35.0) 04/17/24 05:56
Sodium 138 mmol/L (135-145) 04/18/24 04:06
Potassium 3.8 mmol/L (3.5-5.1) 04/18/24 04:06
BUN 23 mg/dl (9-20) H 04/18/24 04:06
Creatinine 0.8 mg/dL (0.7-1.3) 04/18/24 04:06
Glucose 112 mg/dl (70-99) H 04/18/24 04:06
Vital Signs and I&O:
Vital Signs
Temp Pulse Resp BP Pulse Ox
37.0 C 73 18 112/61 94
04/18/24 04:02 04/18/24 05:00 04/18/24 04:02 04/18/24 04:03 04/18/24 04:02
Vital Signs
Temp Pulse Resp BP Pulse Ox
37.0 C 73 18 112/61 94
04/18/24 04:02 04/18/24 05:00 04/18/24 04:02 04/18/24 04:03 04/18/24 04:02
Intake & Output
04/16/24 04/17/24 04/18/24 04/19/24
07:59 07:59 07:59 06:59
Intake Total 1440 / 1440 480 / 480
Output Total 500 / 500 2225 / 2225 1900 / 1900
Balance 940 / 940 -2225 / -2225 -1420 / -1420
Physical Exam
Physical Exam
See above
[2024-04-18] MEDS: MIRALAX PO (08:37)
[2024-04-18] MEDS: COLACE 100 MG PO ×2 (08:38→19:38)
[2024-04-18] MEDS: COREG 6.25 MG PO ×3 (08:38→19:38)
[2024-04-18] MEDS: OMNICEF 300 MG PO ×2 (08:38→19:38)
[2024-04-18] MEDS: COZAAR 12.5 MG PO (08:38)
[2024-04-18] MEDS: LOW STRENGTH ASPIRIN 81 MG PO (08:38)
[2024-04-18] MEDS: NICODERM TRANSDERMAL 21 MG TRANSDERM (08:39)
[2024-04-18] MEDS: LASIX 40 MG IV (08:39)
[2024-04-18] MEDS: TYLENOL 650 MG PO (12:15)
--- NOTE | 2024-04-18 14:35 | W.PN.HOSP.TC ---
Today's Communication/Plan
-
CW ABX
CXR
Repeat CBC
Assessment / Plan
Assessment / Plan
Acute hypoxic respiratory failure likely multifactorial secondary to acute pulmonary edema from hypertensive crisis and Acute CHF and COPD/emphysema exacerbation along with possible pneumonia
Extubated 04/13
Currently on room air
No active bronchospasm-off of steroids now
ABG 07/14 showed no hypercapnia. His admitting bicarb also was normal indicating no chronic Hypercapnia. I would hold on BiPAP for now. Follow with pulm as OP for PFTs eval.
On antibiotics for possible pneumonia-culture negative so far. Afebrile. Nontoxic. Switched to oral cefdinir. Follow leukocytosis which is fluctuating.
Leukocytosis - raising WBC without Fever chills or any other focal infective symptoms. In fact patient clinically feels better. Unclear if the increased leukocytosis is reactive. No diarrhea with antibiotics. Repeated chest x-ray and follow
CBC in AM.
Acute CHF - Likely long standing hypertension, possibly flash pulmonary edema. BNP 1700. Trop peaked 2.8. Pericardial effusion w/o tamponade. Small pleural effusions. No significant peripheral edema.
echo 04/11 with reduced EF 30-35%; diastolic dysfunction
Repeat echocardiogram shows still low EF but slightly improved compared to prior. Currently 40% EF. Cardiac catheterization for ischemia eval 04/16 showed elevated left ventricular end-diastolic pressures and as well as multi vessel coronary
disease.
Lasix resumed. Follow creatinine closely.
Switch from lisinopril to ARB due to patient mentioned side effects of lisinopril. Continue the beta-ravindra. GDMT per cardiology.
Multivessel CAD-appreciate CT surgery input. Optimize medical conditions first prior to surgical intervention. Consulted pulmonary for preop pulmonary eval..
Renal insufficiency likely secondary to diuresis
Unknown baseline, continue to monitor
Improved creatinine
Prediabetes
A1c 5.8
Monitor
Hypertensive emergency - No acute intracranial process or focal deficit
Does not appear to be compliant with medications
- BP under goal
- Follow Ortho BP
Enlarged thyroid gland-patient made aware about this finding today. Advised to follow-up with the ultrasound as an outpatient.
Tobacco dependence
- nicotine patch
DVT PPX - lovenox sq
Code status - Full Code
Discussed with RN
Repeat CXR and WBC and if ok dc in am
Anticipated Discharge: Within 24 hours
Subjective/Interval History
-
Date of Service: April 18, 2024
Feeling better. Denies any chest pain or shortness of breath.
He says the cough has become much less productive. Postextubation he had some sore throat and that has improved as well.
Denies any nausea vomiting or diarrhea.
Denies any dysuria frequency of urine.
Denies any joint swelling or pain.
Objective Data
-
Labs:
Laboratory Results
04/18/24
04:06
WBC 16.5 H
Hgb 18.3 H
Hct 51.1
Plt Count 176
Sodium 138
Potassium 3.8
Chloride 98
Carbon Dioxide 25
BUN 23 H
Creatinine 0.8
Glucose 112 H
Calcium 9.3
Vital Signs:
Vital Signs
Temp Pulse Resp BP Pulse Ox
98.6 F 44 18 120/62 96
04/18/24 04:02 04/18/24 09:04 04/18/24 09:04 04/18/24 09:04 04/18/24 09:04
I&O
04/17/24 04/18/24 04/19/24
06:59 06:59 05:59
Intake Total 480 / 480
Output Total 2225 / 2225 1900 / 1900
Balance -2225 / -2225 -1420 / -1420
Review of Systems
-
Constitutional: Denies Fever or Chills
Neuro: Denies Dizzy or Headache
Physical Exam
-
General: No Apparent Distress
HEENT: Moist Mucous Membranes
Respiratory: Clear to Auscultation
Cardiac: Regular Rhythm and S1/S2
GI: Soft and Nontender
Neuro: AO x 3
Psych: Calm
Data Reviewed
-
Labs: Labs Reviewed by me
[2024-04-18] MEDS: MIRALAX 17 GRAMS PO (17:02)
[2024-04-18] MEDS: CRESTOR 40 MG PO (17:03)
[2024-04-18] MEDS: LOVENOX 40 MG SC (17:03)
[2024-04-19] MEDS: TYLENOL 650 MG PO (01:00)
[2024-04-19 03:15] VITALS: BP 116/56
[2024-04-19 04:21] LABS: Hemoglobin 16.8 g/dL (13.0-18.0); Mean Corpuscular Hgb 30.5 pg (27.0-31.0); Mean Corpuscular Volume 87.1 fL (80.0-94.0); Mean Platelet Volume 11.2 fL (7.4-10.4); Platelet Count 178 10^3/uL (130-400); Red Blood Cell Count 5.51 10^6/uL (4.70-6.10); Red Cell Dist. Width 13.2 % (11.5-14.5); White Blood Cell Count 16.9 10^3/uL (4.8-10.8)
[2024-04-19 04:38] LABS: Blood Urea Nitrogen 32 mg/dl (9-20); Calcium 9.2 mg/dl (8.4-10.2); Carbon Dioxide 27 mmol/L (22-30); Chloride 97 mmol/L (98-107); Estimated Creatinine Clearance 96 ml/min; Glucose 103 mg/dl (70-99); Potassium 3.9 mmol/L (3.5-5.1); Sodium 137 mmol/L (135-145); eGFR > 60.00
[2024-04-19 06:00] VITALS: BMI 34.1
[2024-04-19 06:58] VITALS: BP 105/55
[2024-04-19 08:18] LABS: % Basophils 0.5 % (0-2); % Eosinophils 1.9 % (0-6); % Immature Granulocytes 3.2 % (0-0.5); % Lymphocytes 15.2 % (20.5-51.1); % Monocytes 14.2 % (1.7-9.3); Absolute Basophils 0.1 10^3/uL (0-0.2); Absolute Eosinophils 0.3 10^3/uL (0-0.7); Absolute Immature Granulocytes 0.6 10^3/uL (0-0.05); Absolute Lymphocytes 2.6 10^3/uL (1.2-3.4); Absolute Monocytes 2.4 10^3/uL (0.1-0.6); Absolute Neutrophils 11.1 10^3/uL (1.4-6.5); Nucleated Red Blood Cells % 0 % (-)
[2024-04-19] MEDS: COZAAR 12.5 MG PO (08:34)
[2024-04-19] MEDS: LOW STRENGTH ASPIRIN 81 MG PO (08:35)
[2024-04-19] MEDS: COREG 6.25 MG PO (08:35)
[2024-04-19] MEDS: COLACE PO (08:37)
[2024-04-19] MEDS: MIRALAX PO (08:37)
[2024-04-19] MEDS: OMNICEF PO (09:02)
--- NOTE | 2024-04-19 09:48 | CON.ID ---
Consultation
-
Date/Time Consultation Requested: April 19, 2024 0805
Date/Time Consultation Performed: April 19, 2024 0950
Requesting Provider: Dr. Brock Skinner
Performing Provider: Dr. Ngozi Hickman
Reason for Consultation: Leukocytosis
Chief Complaint / Past History
History of Present Illness
63-year-old male tobacco use disorder presented to the hospital on April 11 with acute shortness of breath. He was hypoxic in the ER. He had to be intubated. Blood pressure was extremely elevated 231/116. Echocardiogram showed EF of 30 to
35%. Troponin positive. chest x-ray showed possible pneumonia and flash pulm edema. He received cefepime x 3 days then transition to cefdinir which he completed April 18. He was quickly extubated. Cardiac catheterization showed multivessel CAD.
He is planned for eventual CABG. His white count on admission was 26.9 it did trend down to 10.3 then trended up to 16.9. Patient reports no diarrhea. No fevers or chills. Cough and shortness of breath resolving. No nausea or vomiting. No
abdominal pain. No dysuria, urinary urgency or flank pain. No rash. No chest pains. No headache sinus congestion or sore throat. He reports he did have PCP in the past but none for the past few years since he lost insurance. He remembered
being told his white count was elevated and since there was no source he should not be concerned. He feels well overall and would like to be discharged.
Past History
Additional Past Medical History:
HTN
HLD
Centrilobular emphysema with suspected COPD
COVID infection January 2024
Allergy History:
No Known Allergies Allergy (Verified 04/11/24 01:31)
Medications Reviewed: Yes
Current Antibiotics:
s/p cefepime (04/11 to 04/14)
s/p cefdinir (04/14 to 04/18)
Social History
Tobacco: Smoker
Alcohol: None
Drug: None
Living: With Roomate (Girlfriend)
Family History
Family History: Not Pertinent
Review of Systems
Review of Systems
General: Negative Fever, Chills or Change in Appetite
HEENT: Negative Stiff Neck, Sinus Problems or Pharyngitis
Cardiovascular: Negative Chest Pain
Gasteroenterology: Negative Weight Loss, Nausea, Vomiting or Diarrhea
Genital / Urological: Negative Dysuria or Flank Pain
Musculoskeletal: Negative Arthralgias
Skin / Hair / Nails: Negative Rash
Neurological: Negative Dizziness
All systems: All other systems were reviewed and were negative
Vital Signs
Temp Pulse Resp BP Pulse Ox
97.9 F 89 20 105/55 98
04/19/24 06:56 04/19/24 09:00 04/19/24 06:56 04/19/24 06:58 04/19/24 07:24
Physical Exam
Physical Exam
Constitutional: No Acute Distress and Comfortable
Head: Other (No frontal or maxillary sinus tenderness)
Eyes: Negative No Conjunctival Hemorrhage or Sclera Anicteric
Pharynx: Negative Erythema or Benign
Oral: Poor Dentition; Negative No Thrush
Cardiovascular: Regular Rate, S1/S2 and S3/S4
Pulmonary: Clear
Gastrointestinal: Soft, Non Tender, Non Distended and Normal Bowel Sounds
Genito-Urinary: Negative Suprapubic Tenderness or CVA Tenderness
Extremities: Negative Edema
Musculoskeletal: Negative Joint Swelling, Joint Effusion or Spinal Tenderness
Neurological: AO x 3
Lab / Diagnostic Study Results
04/19/24 03:24
04/19/24 03:24
Abs Immat Gran (auto) 0.6 10^3/uL (0-0.05) H 04/19/24 03:24
Absolute Neuts (auto) 11.1 10^3/uL (1.4-6.5) H 04/19/24 03:24
Absolute Lymphs (auto) 2.6 10^3/uL (1.2-3.4) 04/19/24 03:24
Absolute Monos (auto) 2.4 10^3/uL (0.1-0.6) H 04/19/24 03:24
Absolute Basos (auto) 0.1 10^3/uL (0-0.2) 04/19/24 03:24
Total Counted 100 04/11/24 00:54
Immature Gran % 3.2 % (0-0.5) H 04/19/24 03:24
Neutrophils % 65.0 % (42.2-75.2) 04/19/24 03:24
Lymphocytes % 15.2 % (20.5-51.1) L 04/19/24 03:24
Monocytes % 14.2 % (1.7-9.3) H 04/19/24 03:24
Eosinophils % 1.9 % (0-6) 04/19/24 03:24
Basophils % 0.5 % (0-2) 04/19/24 03:24
Abs Neuts (Manual) 11.3 10^3/uL (1.4-6.5) H 04/11/24 00:54
Segmented Neutrophils 48 % (42-75) 04/11/24 00:54
Band Neutrophils 4 % (0-3) H 04/11/24 00:54
Lymphocytes (Manual) 26 % (20-51) 04/11/24 00:54
Eosinophils (Manual) 5 % (0-6) 04/11/24 00:54
PT 14.2 Sec (11.4-14.6) 04/17/24 05:56
INR 1.10 04/17/24 05:56
Lactic Acid 1.3 mmol/L (0.7-2.0) 04/11/24 05:22
Procalcitonin 0.26 ng/ml (0.0-0.25) H 04/12/24 17:57
Urine WBC 11-15 /HPF (0-5) A 04/11/24 10:06
Ur Squamous Epith Cells 3-5 /LPF (Few) 04/11/24 10:06
Microbiology Results
Micro:
04/11/24 05:22 MRSA Screen - Final
Nose No Methicillin Resistant Staphylococcus aureus isolated.
04/11/24 10:06 Streptococcus pneumoniae Antigen (M - Final
Urine Negative for Streptococcus pneumoniae antigen.
A negative result does not exclude infection with
Streptococcus pneumoniae. Clinical correlation is
recommended.
04/11/24 06:13 Legionella Urinary Antigen - Final
Urine Negative for Legionella pneumophila Serogroup 1 antigen.
A negative result does not rule out the possiblity of
Legionella infection due to other serogroups or species of
Legionella. Clinical correlation is recommended.
04/11/24 01:55 Influenza Types A & B ([facility]) - Final
Nasal Swab Negative for Influenza A & B, NAAT
Negative results must be combined with clinical observations
and patient history.
Nucleic Acid Amplification test (NAAT)performed on the
[employer] NOW platform.
04/18/24 CXR: Mild bibasilar atelectasis, similar appearance to prior. No new focal airspace disease.
04/17/24 Vascular US: no superficial vein thrombosis
04/16/24 Orthopantogram no abscess
04/10/24 CT chest: Extremely limited study, as described, without findings to confirm pulmonary embolism to the level of the proximal segmental branches bilaterally. Bilateral opacification most likely representing subsegmental atelectasis with
small pleural effusions. Pneumonia cannot be excluded.
, coronary artery calcifications and moderate pericardial effusion.
Assessment / Plan
# Leukocytosis
- No infectious etiology identified.
- Possibly chronic leukocytosis from >40 year h/o of tobacco use. No prior labs to compare.
- Reactive leukocytosis from recent cardiac/pulm events also possibility.
- Recommend smoking cessation.
- Can follow wbc outpatient with PCP.
# 3V CAD
- For eventual CABG
- Can proceed from ID standpoint.
--- NOTE | 2024-04-19 10:32 | W.PN.HOSP.TC ---
Today's Communication/Plan
-
ID/Heme eval
DC planning
Assessment / Plan
Assessment / Plan
Acute hypoxic respiratory failure likely multifactorial secondary to acute pulmonary edema from hypertensive crisis and Acute CHF and COPD/emphysema exacerbation along with possible pneumonia
Extubated 04/13
Currently on room air
No active bronchospasm-off of steroids now
ABG 07/14 showed no hypercapnia. His admitting bicarb also was normal indicating no chronic Hypercapnia. I would hold on BiPAP for now. Follow with pulm as OP for PFTs eval.
On antibiotics for possible pneumonia-culture negative so far. Afebrile. Nontoxic. Switched to oral cefdinir. Follow leukocytosis which is fluctuating.
Leukocytosis - raising WBC without Fever chills or any other focal infective symptoms. In fact patient clinically feels better. Unclear if the increased leukocytosis is reactive or clonal . No diarrhea with antibiotics. Repeated chest x-ray
shows no obvious consolidation or infiltrate , bibasilar atx as before noted.
He finished 7 days of abx for probably Pneumonia -hold further.
Will ask ID and Heme input.
Acute CHF - Likely long standing hypertension, possibly flash pulmonary edema. BNP 1700. Trop peaked 2.8. Pericardial effusion w/o tamponade. Small pleural effusions. No significant peripheral edema.
echo 04/11 with reduced EF 30-35%; diastolic dysfunction
Repeat echocardiogram shows still low EF but slightly improved compared to prior. Currently 40% EF. Cardiac catheterization for ischemia eval 04/16 showed elevated left ventricular end-diastolic pressures and as well as multi vessel coronary
disease.
Diuretics and GDMT per cards.
Wt down by 25lbs.
Multivessel CAD-appreciate CT surgery input. Optimize medical conditions first prior to surgical intervention. Surgery likely next week
Renal insufficiency likely secondary to diuresis
Unknown baseline, continue to monitor
Normalized creatinine
Prediabetes
A1c 5.8
Monitor
Hypertensive emergency - No acute intracranial process or focal deficit
Does not appear to be compliant with medications
- BP under goal
- Follow Ortho BP
Enlarged thyroid gland-patient made aware about this finding today. Advised to follow-up with the ultrasound as an outpatient.
Tobacco dependence
- nicotine patch
DVT PPX - lovenox sq
Code status - Full Code
Discussed with RN
DC home if ok from ID standpoint.
Anticipated Discharge: Today
Subjective/Interval History
-
Date of Service: April 19, 2024
feeling much improved. Voicing no specific complaints. Eager to go home.
Denies any fever or chills.
Denies any sore throat, cough or shortness of breath. No chest pain.
No nausea vomiting or diarrhea.
Denies any dysuria frequency of urine.
When asked if he had any lab work in the past showing high white count he said 15 years ago had a blood test and he was told had elevated count but did not have any further blood tests
Objective Data
-
Labs:
Laboratory Results
04/19/24
03:24
WBC 16.9 H
Hgb 16.8
Hct 48.0
Plt Count 178
Sodium 137
Potassium 3.9
Chloride 97 L
Carbon Dioxide 27
BUN 32 H
Creatinine 1.0
Glucose 103 H
Calcium 9.2
Vital Signs:
Vital Signs
Temp Pulse Resp BP Pulse Ox
97.9 F 89 20 105/55 98
04/19/24 06:56 04/19/24 09:00 04/19/24 06:56 04/19/24 06:58 04/19/24 07:24
I&O
04/18/24 04/19/24 04/20/24
07:59 06:59 06:59
Intake Total 480 / 480
Output Total 400 / 400
Balance 80 / 80
Review of Systems
-
Constitutional: Denies Fever
EENT: Denies Sore Throat
Respiratory: Denies Cough or Trouble Breathing
Cardiac: Denies Chest Pain
Abdomen/GI: Denies Abdominal Pain
Neuro: Denies Dizzy or Headache
Physical Exam
-
General: Comfortable
HEENT: Moist Mucous Membranes
Respiratory: Clear to Auscultation and Non Labored Respirations; Negative Accessory Resp Muscle Use
Cardiac: Regular Rhythm and S1/S2
GI: Soft, Nontender, Nondistended and Normal Bowel Sounds
Neuro: AO x 3
Psych: Calm; Negative Confused
Data Reviewed
-
Labs: Labs Reviewed by me
--- NOTE | 2024-04-19 11:07 | CON.ONC ---
Impression
Impression
Chronic leukocytosis With increased absolute monocytes
Erythrocytosis
Tobacco use
Coronary artery disease
Plan
Plan
Patient will need expedited outpatient follow-up
Anticipate evaluation for myeloproliferative disorders including CMML
Strongly recommended discontinue tobacco use as this can be active benign cause of persistent leukocytosis
Patient was provided with contact information and requested to call the office JESSIE for follow-up
Patient History
History of Present Illness
This is a 63-year-old male with past medical history significant for chronic obstructive pulmonary disease, COVID-19 infection about 2 months ago, hypertension, hyperlipidemia, tobacco abuse, congestive heart failure who presented to the hospital
with several days of progressively worsening shortness of breath. CTA of his chest during this event which did not reveal any pulmonary embolus however it did show significant pneumonia and pulmonary edema. He was placed on antibiotics. Cardiology
was consulted given the newly found reduced ejection fraction and ultimately the patient underwent ischemic workup which revealed multivessel coronary artery disease. Given these findings and the patient's young age we are asked to consider CABG as
the definitive revascularization strategy. He has been scheduled for discharge we have been consulted prior to arrange follow-up for low-level persistent leukocytosis. Patient reports knowledge of greater than a decade of elevated white blood cell
count. He appears to also have had polycythemia on presentation both may be related to tobacco use. He denies any history of CVA/TIA, bleeding or clotting disorders, melena or hematochezia, varicose veins or vein stripping, liver kidney dysfunction.
Past-Medical/Surgical History
Past Medical History
Hypertension
Hyperlipidemia
Congestive heart failure
COPD/emphysema
Tobacco abuse
History of COVID-19 2 months ago
Past Surgical History
Bilateral total hip arthroplasties
Social History
Alcohol: None
Drug: None
Tobacco: Smoker (40 pack years)
Living: With Roomate
Employment: Retired
Patient Medication
�Medication �Instructions �Recorded �Confirmed �Last Taken �Type
No Meds [No Current Medications] 04/14/24 04/14/24 Unknown History
Active Medications
Generic Name Dose Route Start Last Admin
Trade Name Freq PRN Reason Stop Dose Admin
Acetaminophen 650 mg 04/15/24 22:29 04/19/24 01:00 EDT
Acetaminophen 325 Mg Tablet PO 05/13/24 22:28 650 mg
Q4HPRN PRN Administration
mild pain/WARD/temp>100.5
Aspirin 81 mg 04/15/24 10:00 04/19/24 08:35
Aspirin 81 Mg Chewable Tablet PO 05/13/24 09:59 81 mg
DAILY BRE Administration
Bisacodyl 10 mg 04/16/24 22:10
Bisacodyl 5 Mg Enteric Coated Tablet PO 05/14/24 22:09
DAILYPRN PRN
constipation
Carvedilol 6.25 mg 04/14/24 20:00 04/19/24 08:35
Carvedilol 6.25 Mg Tablet PO 05/12/24 19:59 6.25 mg
BID BRE Administration
Docusate Sodium 100 mg 04/15/24 09:00 04/19/24 08:37
Docusate Sodium 100 Mg Capsule PO 05/13/24 08:59 Not Given
BID BRE
Enoxaparin Sodium 40 mg 04/11/24 18:00 04/18/24 17:03
Enoxaparin Sodium 40 Mg/0.4 Ml Syringe SC 05/09/24 17:59 40 mg
QPM BRE Administration
Labetalol HCl 10 mg 04/11/24 04:37 04/12/24 11:09
Labetalol Hcl 5 Mg/1 Ml (20 Mg/4 Ml) Injection IV 05/09/24 04:36 10 mg
Q6HPRN PRN Administration
SBP > 180 DBP > 110
Losartan Potassium 12.5 mg 04/18/24 08:00 04/19/24 08:34
Losartan 25 Mg Tablet PO 05/16/24 07:59 12.5 mg
DAILY BRE Administration
Nicotine 21 mg 04/11/24 08:00 04/18/24 08:39
Nicotine 21 Mg Patch TRANSDERM 05/09/24 07:59 21 mg
DAILY BRE Administration
Ondansetron HCl 4 mg 04/11/24 04:37
Ondansetron 4 Mg/2 Ml Vial IV 05/09/24 04:36
Q6HPRN PRN
nausea/vomiting
Polyethylene Glycol 17 grams 04/15/24 09:00 04/19/24 08:37
Polyethylene Glycol Powder 17 Grams Packet PO 05/13/24 08:59 Not Given
DAILY BRE
Rosuvastatin Calcium 40 mg 04/15/24 18:00 04/18/24 17:03
Rosuvastatin (Crestor) 40 Mg Tablet PO 05/13/24 17:59 40 mg
QPM BRE Administration
Sodium Chloride 0 flush 04/11/24 02:00 04/15/24 08:31
Sodium Chloride 0.9% (Flush) Syringe IV 05/09/24 01:59 2 flush
PER PROTOCOL BRE Administration
Review of Systems
-
12 point review of systems fails elicit additional plaints other than those reviewed in HPI
Physical Exam
-
Physical Exam
General: Well Nourished and Intubated
HEENT: NormoCephalic, Anicteric, Moist mucous membranes, Atraumatic and No Ptosis
Respiratory: Clear
Cardiac: S1/S2 and Tachycardia
GI: Soft, Non Tender, Non Distended and Normal Bowel Sounds No palpable splenomegaly
Musculoskeletal: No Clubbing, No Cyanosis and No Edema
Skin: Warm no evidence of ecchymosis or petechiae
Neuro:Alert nonfocal
Hematologic/Lymphatic: No Lymphadenopathy
Labs
Lab Results
WBC 16.9 10^3/uL (4.8-10.8) H 04/19/24:24
RBC 5.51 10^6/uL (4.70-6.10) 04/19/24:
Hgb 16.8 g/dL (13.0-18.0) 04/19/24:24
Hct 48.0 % (39.0-52.0) 04/19/24:
MCV 87.1 fL (80.0-94.0) 04/19/24:
MCH 30.5 pg (27.0-31.0) 04/19/24:
MCHC 35.0 g/dL (33.0-37.0) 04/19/24:
RDW 13.2 % (11.5-14.5) 04/19/24:24
Plt Count 178 10^3/uL (130-400) 04/19/24:
MPV 11.2 fL (7.4-10.4) H 04/19/24:24
Abs Immat Gran (auto) 0.6 10^3/uL (0-0.05) H 04/19/24:24
Absolute Neuts (auto) 11.1 10^3/uL (1.4-6.5) H 04/19/24:24
Absolute Lymphs (auto) 2.6 10^3/uL (1.2-3.4) 04/19/24:24
Absolute Monos (auto) 2.4 10^3/uL (0.1-0.6) H 04/19/24:24
Absolute Eos (auto) 0.3 10^3/uL (0-0.7) 04/19/24:
Absolute Basos (auto) 0.1 10^3/uL (0-0.2) 04/19/24:
Immature Gran % 3.2 % (0-0.5) H 04/19/24:
Neutrophils % 65.0 % (42.2-75.2) 11/03/24 03:24
Lymphocytes % 15.2 % (20.5-51.1) L 04/19/24 03:24
Monocytes % 14.2 % (1.7-9.3) H 04/19/24 03:24
Eosinophils % 1.9 % (0-6) 04/19/24 03:24
Basophils % 0.5 % (0-2) 04/19/24 03:24
Creatinine 1.0 mg/dL (0.7-1.3) 04/19/24 03:24
Vital Signs
Vital Signs
Temp Pulse Resp BP Pulse Ox
97.9 F 89 20 105/55 98
04/19/24 06:56 04/19/24 09:00 04/19/24 06:56 04/19/24 06:58 04/19/24 07:24
[2024-04-19 11:22] VITALS: BP 119/64
[2024-04-19] MEDS: NICODERM TRANSDERMAL TRANSDERM (13:14)
[2024-04-19 15:27] VITALS: BP 105/60
[2024-04-19 15:28] VITALS: BP 105/60
[2024-04-19 15:28] LABS: Procalcitonin < 0.05 ng/ml (0.0-0.25)
[2024-04-19] MEDS: FLUAD (65 yr+) 2024-2025 FORMULA 0.5 ML IM (15:34)
--- NOTE | 2024-04-19 15:50 | W.DCSUMMARY ---
Discharge Summary
Discharge Data
Date of Admission: 04/11/24
Date of Discharge: 04/19/24
-
Pending Results: No
Hospital Course
Primary diagnosis:
Acute heart failure with reduced EF
New cardiomyopathy
Multivessel coronary artery disease
Hypertensive emergency on admission
Chronic leukocytosis with increased absolute monocytes
Other cytosis
Tobacco use
Hospital course:
63-year-old gentleman who did not recently had any routine preventative health care presented with acute hypoxic respiratory failure needing intubation secondary to acute heart failure. Noted to have a reduced EF of 30 to 35%. After diuresis
repeat echo showed persistent low EF at 40%. He was seen by cardiology and went on to have ischemic eval with cardiac visualization which showed multivessel disease. CABG was felt the best option. He was seen by CT surgery who going to plan on
doing that in the next week or so.
There was also increased left ventricular end-diastolic pressures on cardiac cath. He had a good response to diuresis and lost 25 pounds prior to discharge.
Once he was stable he was discharged on Lasix and as well as GDMT medications as above.
During the stay here he was noted to have leukocytosis. He was given the benefit of doubt for possible pneumonia when he was on the ventilator but leukocytosis persisted and there was no other foci. Repeat chest x-ray did not suggest pneumonia.
Antibiotics were stopped. She was seen by ID who felt no obvious infectious source. Patient apparently had a CBC many years ago which apparently showed leukocytosis which is not available for review. I consulted hematology due to suspicion for
myeloproliferative disorder. He has an leukocytosis with increased absolute monocytes and also erythrocytosis. He is a current smoker. [facility] Reporter plan on to do an expedited myeloproliferative evaluation including CMML as an outpatient. He was
advised to stop smoking .
Consultants on board:
Cardiology-Tony Agarwal
Hematology-Kenji Hicks
Cardiothoracic surgery-Joesph Samnao
Discharge Plan
-
Patient Disposition: Home (Routine Discharge)
Discharge Diagnosis/Procedures: Cardiac cath/CAD/hypertensive crisis/CHF/Cardiomyopathy
Condition: Fair
Diet: Low Cholesterol and Low Sodium
Activity: No strenuous activity
Driving Restrictions: As prior to admission
Bathing Restrictions: OK to Shower
Others Tests: Ultrasound of thyroid - to evaluate abnormality found on chest CT . Arrange through your PCP as out patient.
Specialty Instructions: Weigh Daily- Call MD for wt gain/loss 3 lbs overnight/5 lbs in 1 week
Referrals:
Kenji Retana DO [Active] - in one week
Ugo Tejeda MD [Active] - in four to six weeks (full PFTs on day of office visit)
Tony Vizcarra MD [Active] - in less than 1 week
Murray Estrada MD [Active] - (please call for appt)
UNKNOWN - PT DOES,NOT KNOW [Family Provider] -
Prescriptions:
New
carvedilol 6.25 mg Tablet
6.25 mg PO BID Qty: 60 0RF
losartan 25 mg Tablet
12.5 mg PO DAILY Qty: 30 0RF
docusate sodium 100 mg Capsule
100 mg PO DAILY Qty: 30 0RF
Rx Instructions:
Can stop it if no constipation issues after discharge
polyethylene glycol 3350 [HealthyLax] 17 gram Powder In Packet
17 g PO DAILY PRN (Reason: constipation) Qty: 14 0RF
aspirin 81 mg Tablet,Chewable
81 mg PO DAILY Qty: 30 0RF
rosuvastatin 40 mg Tablet
40 mg PO QPM Qty: 30 0RF
furosemide [Lasix] 40 mg tablet
40 mg PO DAILY Qty: 30 0RF
potassium chloride 20 mEq tablet extended release
20 meq PO DAILY Qty: 30 0RF
Discharge Orders:
Discharge Patient (As Directed); Ordered 04/19/24
Ordered By: Brock Skinner
Discharge Date and Time
Print Language: CENTRAL AFRICAN
--- NOTE | 2024-04-19 16:04 | PTCARENOTE ---
d/c instructions read to pt and pt verbalized understanding. iv and tele removed. pt left w/ belongings from room, scale and scripts. pt educated on need to make follow up apts, pt verbalized understanding. pt left via wheelchair w/ staff member.
== END 2024-04-19 16:05 | disposition home or self-care (01) | DRG 208 ==
LOC: IVU 04:14
PROVIDERS: Internal Medicine; Internal Medicine Critical Care Medicine; Internal Medicine Interventional Cardiology; Nurse Practitioner Adult Health; Nurse Practitioner Primary Care; Physician Assistant Medical; ADMITTING PHYSICIAN Internal Medicine; ATTENDING PHYSICIAN Internal Medicine; CONSULT PHYSICIAN Internal Medicine Critical Care Medicine; CONSULT PHYSICIAN Internal Medicine Hematology & Oncology; CONSULT PHYSICIAN Internal Medicine Infectious Disease; CONSULT PHYSICIAN Thoracic Surgery (Cardiothoracic Vascular Surgery); EMERGENCY PHYSICIAN Emergency Medicine; OTHER PHYSICIAN Internal Medicine Cardiovascular Disease
PROC: 5A1945Z Respiratory Ventilation, 24-96 Consecutive Hours (ICD-10-PCS; 2024-04-11)
PROC: 03HY32Z Insertion of Monitoring Device into Upper Artery, Percutaneous Approach (ICD-10-PCS; 2024-04-11)
PROC: 0BH17EZ Insertion of Endotracheal Airway into Trachea, Via Natural or Artificial Opening (ICD-10-PCS; 2024-04-11)
PROC: 5A09357 Assistance with Respiratory Ventilation, Less than 24 Consecutive Hours, Continuous Positive Airway Pressure (ICD-10-PCS; 2024-04-13)
PROC: B2111ZZ Fluoroscopy of Multiple Coronary Arteries using Low Osmolar Contrast (ICD-10-PCS; 2024-04-16)
PROC: 4A023N7 Measurement of Cardiac Sampling and Pressure, Left Heart, Percutaneous Approach (ICD-10-PCS; 2024-04-16)
PROC: 3E02340 Introduction of Influenza Vaccine into Muscle, Percutaneous Approach (ICD-10-PCS; 2024-04-19)
DX: J96.01 Acute respiratory failure with hypoxia (principal); I50.41 Acute combined systolic (congestive) and diastolic (congestive) heart failure; I16.1 Hypertensive emergency; I31.39 Other pericardial effusion (noninflammatory); I42.9 Cardiomyopathy, unspecified; J44.1 Chronic obstructive pulmonary disease with (acute) exacerbation; E87.29 Other acidosis; I5A Non-ischemic myocardial injury (non-traumatic); J98.11 Atelectasis; I11.0 Hypertensive heart disease with heart failure; I25.10 Atherosclerotic heart disease of native coronary artery without angina pectoris; D72.829 Elevated white blood cell count, unspecified; F17.210 Nicotine dependence, cigarettes, uncomplicated; E78.00 Pure hypercholesterolemia, unspecified; I08.0 Rheumatic disorders of both mitral and aortic valves; J96.02 Acute respiratory failure with hypercapnia; R73.03 Prediabetes; J43.2 Centrilobular emphysema; N28.9 Disorder of kidney and ureter, unspecified; T50.1X5A Adverse effect of loop [high-ceiling] diuretics, initial encounter; E04.9 Nontoxic goiter, unspecified; D75.1 Secondary polycythemia; Z11.52 Encounter for screening for COVID-19; Z86.16 Personal history of COVID-19; Z82.49 Family history of ischemic heart disease and other diseases of the circulatory system; Z23 Encounter for immunization; Z91.148 Patient's other noncompliance with medication regimen for other reason
CPT/HCPCS: 93308; 94727; 94729; 31500; 36600; 70355; 70450; 71045; 71046; 71275; 80048; 80053; 80061; 81003; 81015; 82248; 82330; 82805; 83036; 83605; 83735; 83880; 84100; 84132; 84145; 84302; 84443; 84478; 84484; 85025; 85027; 85610; 85730; 86850; 86900; 86901; 87070; 87449; 87502; 87811; 87899; 90662; 92526; 92610; 93005; 93306; 93458; 93880; 93923; 93930; 93970; 94002; 94003; 94010; 94640; 94644; 94660; 96365; 96366; 96367; 96375; 96376; 97116; 97163; 99291; 99406; C1894; G0008; Q9967

== ENCOUNTER 2024-06-19 04:53 | Inpatient (IN) | payer MEDICARE, SELFPAY ==
[2024-04-24 08:48] VITALS: BMI 37.5
[2024-04-24 09:52] LABS: % Basophils 0.5 % (0-2); % Eosinophils 2.5 % (0-6); % Immature Granulocytes 1.8 % (0-0.5); % Lymphocytes 9.5 % (20.5-51.1); % Monocytes 14.8 % (1.7-9.3); % Neutrophils 70.9 % (42.2-75.2); Absolute Eosinophils 0.2 10^3/uL (0-0.7); Absolute Immature Granulocytes 0.2 10^3/uL (0-0.05); Absolute Lymphocytes 0.8 10^3/uL (1.2-3.4); Absolute Monocytes 1.3 10^3/uL (0.1-0.6); Hematocrit 46.1 % (39.0-52.0); Hemoglobin 15.8 g/dL (13.0-18.0); Mean Corp Hgb Conc. 34.3 g/dL (33.0-37.0); Mean Corpuscular Hgb 31.2 pg (27.0-31.0); Mean Corpuscular Volume 91.1 fL (80.0-94.0); Mean Platelet Volume 11.1 fL (7.4-10.4); Nucleated Red Blood Cells % 0 % (-); Platelet Count 158 10^3/uL (130-400); Red Blood Cell Count 5.06 10^6/uL (4.70-6.10); Red Cell Dist. Width 13.5 % (11.5-14.5); White Blood Cell Count 8.5 10^3/uL (4.8-10.8)
[2024-04-24 10:05] LABS: Blood Urea Nitrogen 13 mg/dl (9-20); Calcium 8.8 mg/dl (8.4-10.2); Carbon Dioxide 26 mmol/L (22-30); Chloride 104 mmol/L (98-107); Estimated Creatinine Clearance 106 ml/min; Glucose 103 mg/dl (70-99); Potassium 4.2 mmol/L (3.5-5.1); Sodium 140 mmol/L (135-145); eGFR > 60.00
--- NOTE | 2024-04-24 10:05 | CM ---
Chart reviewed. Met with the patient on PAT. Reviewed preoperative and postoperative instructions and restrictions, along with showering instructions. Gave patient 2 soaps. Patient is agreeable to a home visit by CT Transitional RN. Patient
is independent of ADLS, lives with his partner in a [address], [address], 0 DME. Plan is for the patient to return home with CT Transitional RN.
[2024-04-24 10:22] LABS: Urine Albumin Trace (Neg - Trace); Urine Bilirubin 1+ (Negative); Urine Character Clear (Clear); Urine Color Yellow; Urine Glucose Negative (Negative); Urine Ketone Negative (Negative); Urine Leukocyte 1+ (Negative); Urine Nitrite Positive (Negative); Urine Occult Blood Trace (Negative); Urine Urobilinogen 2+ (Neg - 1+)
[2024-04-24 10:25] LABS: INR 1.08; PT 14.3 Sec (11.4-14.6)
[2024-04-24 10:58] LABS: Urine Mucus Few; Urine Red Blood Cell 0-2 /HPF (0-2)
[2024-04-24 10:59] LABS: Urine Bacteria Few (Negative); Urine White Cell 16-20 /HPF (0-5)
[2024-06-05 09:20] VITALS: BMI 38.5
[2024-06-05 10:10] LABS: Urine Albumin Negative (Neg - Trace); Urine Bilirubin Negative (Negative); Urine Character Clear (Clear); Urine Color Yellow; Urine Glucose Negative (Negative); Urine Ketone Negative (Negative); Urine Leukocyte Negative (Negative); Urine Nitrite Negative (Negative); Urine Occult Blood Negative (Negative); Urine Urobilinogen Negative (Neg - 1+)
[2024-06-05 10:15] LABS: INR 0.88; PT 12.2 Sec (11.4-14.6)
[2024-06-05 10:16] LABS: APTT 33.2 Sec (23.4-35.0)
[2024-06-05 10:17] LABS: % Basophils 0.8 % (0-2); % Eosinophils 2.6 % (0-6); % Immature Granulocytes 2.1 % (0-0.5); % Lymphocytes 15.9 % (20.5-51.1); % Monocytes 9.5 % (1.7-9.3); % Neutrophils 69.1 % (42.2-75.2); Absolute Basophils 0.1 10^3/uL (0-0.2); Absolute Eosinophils 0.3 10^3/uL (0-0.7); Absolute Immature Granulocytes 0.3 10^3/uL (0-0.05); Absolute Lymphocytes 1.9 10^3/uL (1.2-3.4); Absolute Monocytes 1.2 10^3/uL (0.1-0.6); Absolute Neutrophils 8.4 10^3/uL (1.4-6.5); Hematocrit 50.1 % (39.0-52.0); Mean Corp Hgb Conc. 33.9 g/dL (33.0-37.0); Mean Corpuscular Hgb 30.6 pg (27.0-31.0); Mean Corpuscular Volume 90.3 fL (80.0-94.0); Nucleated Red Blood Cells % 0 % (-); Platelet Count 232 10^3/uL (130-400); Red Blood Cell Count 5.55 10^6/uL (4.70-6.10); White Blood Cell Count 12.2 10^3/uL (4.8-10.8)
[2024-06-05 10:28] LABS: ALT (SGPT) 17 U/L (0-50); AST (SGOT) 20 U/L (17-59); Albumin 4.5 g/dl (3.5-5.0); Alkaline Phosphatase 84 U/L (38-126); Blood Urea Nitrogen 14 mg/dl (9-20); Calcium 9.4 mg/dl (8.4-10.2); Carbon Dioxide 24 mmol/L (22-30); Chloride 104 mmol/L (98-107); Direct Bilirubin 0.2 mg/dl (0.0-0.4); Estimated Creatinine Clearance 107 ml/min; Glucose 107 mg/dl (70-99); Potassium 4.4 mmol/L (3.5-5.1); Sodium 138 mmol/L (135-145); Total Bilirubin 0.6 mg/dl (0.2-1.3); Total Protein 6.9 g/dl (6.3-8.2); eGFR > 60.00
--- NOTE | 2024-06-05 10:29 | CM ---
Chart reviewed. Met with Ilya in PAT. Reviewed preoperative and postoperative instructions, along with showering instructions. Gave patient 2 soaps. Patient is agreeable to a home visit by CT Transitional RN. Patient is independent of ADLS,
lives with a friend in a [address], 4 [address], 0 DME. Plan is for the patient to return home with CT Transitional RN.
[2024-06-05 14:16] LABS: Glycohemoglobin (HgbA1c) 5.8 % (4.0-5.6)
[2024-06-19] VITALS (21 sets, daily range): BP systolic 79–138; BP diastolic 46–68; BMI 38.1
[2024-06-19] MEDS: MAGNESIUM OXIDE 500 MG PO (05:10)
[2024-06-19] MEDS: PROTONIX 40 MG PO (05:10)
[2024-06-19] MEDS: BACTROBAN 2% OINTMENT 1 APPLIC NASAL ×2 (05:10→20:29)
[2024-06-19] MEDS: LOPRESSOR 25 MG PO (05:10)
--- NOTE | 2024-06-19 05:30 | PTCARENOTE ---
pt admitted into room 2267. VS and weight obtained. pt confirms 2 showers @ home and NPO since midnight. admission questions and med rec completed. ABO drawn and sent. clip prep and CHG cloth bath done. pre-op meds given. all questions answered. on
call to [facility].
[2024-06-19 07:58] LABS: Urine Albumin Negative (Neg - Trace); Urine Bilirubin Negative (Negative); Urine Character Clear (Clear); Urine Color Yellow; Urine Glucose Negative (Negative); Urine Ketone Negative (Negative); Urine Leukocyte Trace (Negative); Urine Nitrite Negative (Negative); Urine Occult Blood Negative (Negative); Urine Urobilinogen Negative (Neg - 1+)
[2024-06-19 08:03] LABS: ACT+ - POC 118 Seconds (82-134)
[2024-06-19 08:30] LABS: Urine Bacteria Moderate (Negative); Urine Red Blood Cell 0-2 /HPF (0-2); Urine Squamous Cell 0-2 /LPF (Few)
[2024-06-19 08:31] LABS: Urine White Cell 26-30 /HPF (0-5)
[2024-06-19 10:15] LABS: ACT+ - POC 777 Seconds (82-134)
--- NOTE | 2024-06-19 10:37 | CM ---
Patient in OR today for planned CT Surgery.
Reviewed DC plan for home w/ CT Transitional Care RN.
CM will follow.
[2024-06-19 10:51] LABS: ACT+ - POC 604 Seconds (82-134)
[2024-06-19 10:52] LABS: B.E. - POC -1.6 mmol/L; Glucose - POC 117 mg/dl (70-99); HCO3 - POC 26 mmol/L (21-28); Hematocrit - POC 49 % PCV (42-52); Hemodilution- POC No; Hemoglobin Calculated - POC 16.6; Ionized Calcium - POC 1.19 mmol/L (1.15-1.33); O2 Saturation %Calculated-POC 96.3 % (94-98); PCO2 - POC 51 mmHg (35-48); PO2 - POC 93 mmHg (83-108); POC Comment BASELINE; Potassium - POC 3.9 mmol/L (3.5-5.1); Sodium - POC 143 mmol/L (136-145); Specimen Type - POC Arterial; pH - POC 7.31 (7.35-7.45)
[2024-06-19 11:01] LABS: ACT+ - POC 559 Seconds (82-134)
[2024-06-19 11:20] LABS: B.E. - POC 0.4 mmol/L; Glucose - POC 167 mg/dl (70-99); HCO3 - POC 27 mmol/L (21-28); Hematocrit - POC 42 % PCV (42-52); Hemodilution- POC Yes; Hemoglobin Calculated - POC 14.3; Ionized Calcium - POC 1.13 mmol/L (1.15-1.33); O2 Saturation %Calculated-POC 99.9 % (94-98); PCO2 - POC 51 mmHg (35-48); PO2 - POC 340 mmHg (83-108); POC Comment CPB; Potassium - POC 4.9 mmol/L (3.5-5.1); Sodium - POC 140 mmol/L (136-145); Specimen Type - POC Arterial; pH - POC 7.34 (7.35-7.45)
[2024-06-19 11:27] LABS: ACT+ - POC 511 Seconds (82-134)
[2024-06-19 11:45] LABS: B.E. - POC -0.4 mmol/L; Glucose - POC 142 mg/dl (70-99); HCO3 - POC 25 mmol/L (21-28); Hematocrit - POC 41 % PCV (42-52); Hemodilution- POC Yes; Hemoglobin Calculated - POC 13.8; Ionized Calcium - POC 1.11 mmol/L (1.15-1.33); O2 Saturation %Calculated-POC 99.9 % (94-98); PCO2 - POC 45 mmHg (35-48); PO2 - POC 343 mmHg (83-108); POC Comment CPB; Potassium - POC 4.8 mmol/L (3.5-5.1); Sodium - POC 140 mmol/L (136-145); Specimen Type - POC Arterial; pH - POC 7.36 (7.35-7.45)
[2024-06-19 11:55] LABS: ACT+ - POC 604 Seconds (82-134)
[2024-06-19 12:07] LABS: B.E. - POC 0.5 mmol/L; Glucose - POC 117 mg/dl (70-99); HCO3 - POC 26 mmol/L (21-28); Hematocrit - POC 40 % PCV (42-52); Hemodilution- POC Yes; Hemoglobin Calculated - POC 13.7; Ionized Calcium - POC 1.14 mmol/L (1.15-1.33); O2 Saturation %Calculated-POC 99.9 % (94-98); PCO2 - POC 44 mmHg (35-48); PO2 - POC 352 mmHg (83-108); POC Comment CPB; Potassium - POC 5.2 mmol/L (3.5-5.1); Sodium - POC 141 mmol/L (136-145); Specimen Type - POC Arterial; pH - POC 7.38 (7.35-7.45)
[2024-06-19 12:15] LABS: ACT+ - POC 542 Seconds (82-134)
[2024-06-19 12:28] LABS: B.E. - POC 0.1 mmol/L; Glucose - POC 124 mg/dl (70-99); HCO3 - POC 25 mmol/L (21-28); Hematocrit - POC 39 % PCV (42-52); Hemodilution- POC Yes; Hemoglobin Calculated - POC 13.4; Ionized Calcium - POC 1.09 mmol/L (1.15-1.33); PCO2 - POC 40 mmHg (35-48); PO2 - POC 390 mmHg (83-108); POC Comment CPB; Potassium - POC 6.2 mmol/L (3.5-5.1); Sodium - POC 140 mmol/L (136-145); Specimen Type - POC Arterial
[2024-06-19 12:38] LABS: ACT+ - POC 506 Seconds (82-134)
[2024-06-19 12:53] LABS: ACT+ - POC 500 Seconds (82-134)
[2024-06-19 12:57] LABS: B.E. - POC -1.3 mmol/L; Glucose - POC 143 mg/dl (70-99); HCO3 - POC 23 mmol/L (21-28); Hematocrit - POC 39 % PCV (42-52); Hemodilution- POC Yes; Hemoglobin Calculated - POC 13.3; Ionized Calcium - POC 1.09 mmol/L (1.15-1.33); O2 Saturation %Calculated-POC 99.9 % (94-98); PCO2 - POC 38 mmHg (35-48); PO2 - POC 281 mmHg (83-108); POC Comment WARM; Potassium - POC 5.6 mmol/L (3.5-5.1); Sodium - POC 142 mmol/L (136-145); Specimen Type - POC Arterial; pH - POC 7.39 (7.35-7.45)
[2024-06-19 13:07] LABS: ACT+ - POC 549 Seconds (82-134)
[2024-06-19 13:15] LABS: B.E. - POC 1.2 mmol/L; Glucose - POC 151 mg/dl (70-99); HCO3 - POC 27 mmol/L (21-28); Hematocrit - POC 40 % PCV (42-52); Hemodilution- POC Yes; Hemoglobin Calculated - POC 13.5; Ionized Calcium - POC 1.07 mmol/L (1.15-1.33); O2 Saturation %Calculated-POC 98.9 % (94-98); PCO2 - POC 44 mmHg (35-48); PO2 - POC 132 mmHg (83-108); POC Comment WARM; Potassium - POC 5.5 mmol/L (3.5-5.1); Sodium - POC 140 mmol/L (136-145); Specimen Type - POC Arterial; pH - POC 7.39 (7.35-7.45)
[2024-06-19 13:21] LABS: ACT+ - POC 441 Seconds (82-134)
[2024-06-19 13:33] LABS: ACT+ - POC 482 Seconds (82-134)
[2024-06-19 13:39] LABS: B.E. - POC 0.5 mmol/L; Glucose - POC 138 mg/dl (70-99); HCO3 - POC 26 mmol/L (21-28); Hematocrit - POC 41 % PCV (42-52); Hemodilution- POC Yes; Hemoglobin Calculated - POC 13.9; Ionized Calcium - POC 1.11 mmol/L (1.15-1.33); O2 Saturation %Calculated-POC 99.1 % (94-98); PCO2 - POC 43 mmHg (35-48); PO2 - POC 140 mmHg (83-108); POC Comment WARM; Potassium - POC 4.8 mmol/L (3.5-5.1); Sodium - POC 141 mmol/L (136-145); Specimen Type - POC Arterial; pH - POC 7.39 (7.35-7.45)
[2024-06-19 13:49] LABS: ACT+ - POC 519 Seconds (82-134)
[2024-06-19 14:14] LABS: B.E. - POC 0.7 mmol/L; Glucose - POC 137 mg/dl (70-99); HCO3 - POC 26 mmol/L (21-28); Hematocrit - POC 42 % PCV (42-52); Hemodilution- POC Yes; Hemoglobin Calculated - POC 14.3; Ionized Calcium - POC 1.12 mmol/L (1.15-1.33); O2 Saturation %Calculated-POC 99.4 % (94-98); PCO2 - POC 44 mmHg (35-48); PO2 - POC 157 mmHg (83-108); POC Comment WARM; Sodium - POC 142 mmol/L (136-145); Specimen Type - POC Arterial; pH - POC 7.38 (7.35-7.45)
[2024-06-19 14:17] LABS: ACT+ - POC 123 Seconds (82-134)
[2024-06-19] MEDS: TYLENOL PO ×2 (14:21→21:43)
--- NOTE | 2024-06-19 14:46 | W.[facility]OR.SURPR ---
[facility] Surgeon Immed Pre Op
-
I have examined this patient prior to performance of the scheduled procedure.
The patient's condition is unchanged from the time of the dictated/written History and
Physical and the patient is able to undergo the scheduled procedure.
--- NOTE | 2024-06-19 14:46 | W.IMMPOSTOP ---
Addendum entered and electronically signed by Murray Estrada MD 06/19/24 15:49:
[id number]
Original Note:
Surgical Immed Post Op Note
-
CARDIAC SURGERY OPERATIVE NOTE:
Preoperative Dx:
MVCAD
Mild-to-mod AI
Mild-to-mod MR
Postoperative Dx:
Same
Procedures:
1) Median sternotomy
2) Takedown of DMITRY (narrow pedicle)
3) Endoscopic harvest/prep of RLE GSV
4) CABG x 4 (DMITRY to LAD, GSV to D1, GSV to OM4, GSV to RPDA)
Surgeon:
Murray Estrada M.D.
Assistants:
Maria L LeahyA.-C.; endoscopic harvest/prep of RLE GSV; insurance claims assistant throughout
Francis Pérez PShavonA.-C.; closure of RLE GSV harvest incisions
Maria L RaymundoA.-C.; [id number] sternotomy closure
Anesthesia:
Bhavani Quintanilla.N.A. and Luca Godfrey M.D.
Perfusion:
Julisa Rawls C.C.P.; CPB: 185min, XC: 110min
Findings:
DMITRY was healthy appearing conduit w/ ELD 2.5mm w/ brisk blood flow
GSV was healthy appearing conduit w/ thin rodriguez but reasonable ELD at 3.00mm - numerous branch points
There was a moderate sized pericardial effusion w/ clear, serous fluid
The pericardium was normal in appearance, the epicardial surface and epicardial adipose tissue appeared chronically inflamed with a saenz discoloration of the adipose
LAD was visible w/ scattered calcifications, moderately dense, thickened rodriguez, but good luminal diameter at midpoint anastomsis (ELD 2.5mm)
D1 was visible on the epicardial surface, moderately dense, scattered calcifications, normal rodriguez at midpoint anastomosis (ELD 2.25mm)
OM4 was visible on the epicardial surface, moderate scattered calcifications, normal rodriguez at distal midpoint anastomosis, ELD 2.65mm
RPDA was visible on the epicardial surface, ELD 1.75mm
Aorta was non-aneurysmal, grossly normal in appearance, but was thin-walled on aortotomy for proximal anastomoses
Several repair sutures required at proximal anastomoses
Good flow in all grafts on intraoperative transit-time U/S flow probe assessment
Post-REMI: RV function normal, LVEF 50% no obvious RWMA, [id number] AI, [id number] MR unchanged from preop, mild TR, severe calcifications in distal aortic arch, moderate sessile atheroma in descending thoracic aorta
Complications:
None
Implants:
CT x 4 (B/L pleural, inferior mediastinal, superior mediastinal)
Sternal wires x 10
Transfusions:
None
Condition:
88 isoelectric sinus (-0.3/-0.4); 110/60. 37/25. CVP: 11. CO/CI: 6.3/2.5. 99%
GTTS: insulin 1, dobutamine 3, precedex 0.5
Stable/guarded to CVICU
[2024-06-19 14:47] LABS: B.E. - POC -2.1 mmol/L; Glucose - POC 120 mg/dl (70-99); HCO3 - POC 24 mmol/L (21-28); Hematocrit - POC 39 % PCV (42-52); Hemodilution- POC Yes; Hemoglobin Calculated - POC 13.1; Ionized Calcium - POC 1.19 mmol/L (1.15-1.33); O2 Saturation %Calculated-POC 99.1 % (94-98); PCO2 - POC 45 mmHg (35-48); PO2 - POC 149 mmHg (83-108); POC Comment POST; Potassium - POC 4.2 mmol/L (3.5-5.1); Sodium - POC 142 mmol/L (136-145); Specimen Type - POC Arterial; pH - POC 7.34 (7.35-7.45)
--- NOTE | 2024-06-19 15:15 | PTCARENOTE ---
Received patient from OR at 1515. Pt intubated and sedated on precedex gtt. RAAS -5. NSR on tele with rates in the 80s. BP 138/60. PA pressures 29/18, CVP 12. CI 1.93. Bilateral radial and DP pulses palapble. No edema noted. +Rub. POX 91% on SIMV
60% 14 550 5/5. Bilateral anterior breath sounds audible. Small amount of clear, blood tinged secretions noted via oral cavity. Mediastinal chest tubes x2 y-sited to 1 atrium to -20cm suction draining red fluid. Right and left pleural chest tubes
y-sited to 1 atrium to -20cm suction draining red fluid. No air leaks, tidaling, crepitus noted. CT output WNL. Abdomen soft, round, obese, nontender. +BS. Salgado catheter intact draining adequate amounts of clear yellow urine. Sternal incision
covered with antibiotic dressing, CDI. Chest tubes covered, CDI. Right groin puncture site slightly oozy, new 4x4 dressing applied. Right SVG harvest approximated with skin glue and covered with RINA-CDI. Right IJ cordis intact with swan floated to
48cm. Left radial tarah intact. All lines flushed, leveled, and zeroed. Right wrist 20g PIV intact. Gtts: Dobutamine 1mcg/kg/min, Precedex 0.5mcg/kg/hr, Insulin per Critical Care Glycemic Protocol. Post op EKG, labs, and CXR completed.
--- NOTE | 2024-06-19 15:17 | W.PN.CARDCBS ---
Addendum entered and electronically signed by Hima Simon MD 06/19/24 16:02:
I saw and examined the patient.
The CROP ADJUSTER or PA's note was reviewed and I agree with the note.
Comment: General: Sedate
Neck: Supple, no JVD, HJR, carotids +2 B/L, no bruits bilaterally.
Heart: Non displaced PMI, RRR, no murmurs, No S3, S4, pericardial friction rub
Lungs: Scattered rhonchi
Sternal dressings intact
Extremities: No clubbing, cyanosis or edema bilaterally.
Neuro: Sedate
Ilya has a history of ischemic cardiomyopathy with CHF, COPD, hypertension, tobacco abuse, CAD. He is seen status post four-vessel CABG with ALVAREZ to LAD, vein graft to diagonal 1, vein graft to OM 4, vein graft to PDA. He is currently intubated.
Cardiac index is 1.9 on 1 mcg of dobutamine. Remains in sinus rhythm. Discussed with nursing.
Original Note:
Today's Communication / Plan
-
-post op care
-in NSR
Impression / Plan
-
Primary Mobile Game Engineer:CECIL Vizcarra
Impression:
Multivessel CAD s/p CABG x 4 06/19/2024 (DMITRY-LAD, GSV-D1, GSV-OM4, GSV-RPDA)
ischemic cardiomyopathy
acute HF/flash pulm edema 04/10/2024 -[facility] admission
COPD
HTN
HLD
Tobacco use
FH of CAD
Suspected PNA/COPD exacerbation 04/10/2024
Cardiac catheterization 04/16/2024:
Left main: Short and unobstructed
LAD: D1 with long 80% mid stenosis. Mid LAD beyond D1 with 70% eccentric stenosis and long 70% mid to distal LAD stenosis.
Circumflex: Mid circumflex with 40 to 50% stenosis. OM 2 occluded at origin. OM 3 small. OM 4 with 60 to 70% proximal stenosis
RCA: 60% proximal stenosis, mid RCA with 60 to 70% stenosis, distal RCA somewhat ectatic supplying moderate caliber PDA and PL branch
ECHO 04/11/24:
- Left ventricle is moderately dilated. Mild concentric left ventricular hypertrophy.
- Moderately- severely reduced left ventricular systolic function. Global hypokinesis. LVEF 30-35%
- Stage II diastolic dysfunction suggestive of abnormal relaxation and increased filling pressures.
- Mildly dilated left atrium.
- Mild to moderate mitral regurgitation.
- Mild to moderate aortic regurgitation
- Small pericardial effusion without evidence of hemodynamic compromise.
- Pleural effusion present.
Plan:
-s/p CABG x 4 today, 06/19/2024 (DMITRY-LAD, GSV-D1, GSV-OM4, GSV-RPDA)
-on Dobutamine 1mcg/kg/min, Precedex, and Insulin. Levo weaned off
-required no blood products
-intubated/sedated
-telem: NSR 85 BPM
-post op EKG: NSR,nonspecific ST-T wave abnormality
-postop CT protocol
Outpt cardiac meds:
Carvedilol 6.25 mg twice daily
Rosuvastatin 40 mg a day
Furosemide 40 mg daily
Losartan 12.5 mg daily
Potassium 20 meq daily
Progress Note - Mobile Game Engineer
Subjective
Date of Service: June 19, 2024
s/p CABG x 4
intubated, sedated
in NSR
Objective
Labs:
Labs
Hgb 17.0 g/dL (13.0-18.0) 06/05/24 09:35
Hct 50.1 % (39.0-52.0) 06/05/24 09:35
Plt Count 232 10^3/uL (130-400) 06/05/24 09:35
PT 12.2 Sec (11.4-14.6) 06/05/24 09:29
INR 0.88 06/05/24 09:29
APTT 33.2 Sec (23.4-35.0) 06/05/24 09:29
Sodium 138 mmol/L (135-145) 06/05/24 09:35
Potassium 4.4 mmol/L (3.5-5.1) 06/05/24 09:35
BUN 14 mg/dl (9-20) 06/05/24 09:35
Creatinine 0.9 mg/dL (0.7-1.3) 06/05/24 09:35
Glucose 107 mg/dl (70-99) H 06/05/24 09:35
Vital Signs and I&O:
Vital Signs
Temp Pulse Resp BP Pulse Ox
97.6 F 87 18 135/57 96
06/19/24 05:15 06/19/24 05:15 06/19/24 05:15 06/19/24 05:27 06/19/24 05:15
Vital Signs
Temp Pulse Resp BP Pulse Ox
97.6 F 87 18 135/57 96
06/19/24 05:15 06/19/24 05:15 06/19/24 05:15 06/19/24 05:27 06/19/24 05:15
Intake & Output
06/17/24 06/18/24 06/19/24 06/20/24
06:59 06:59 06:59 06:59
Intake Total 0 / 0
Balance 0 / 0
Physical Exam
Physical Exam
GEN: intubated, sedated
LUNGS: CTA, no wheezes/rales
CV: Reg, S1/S2, +rub
ABD: soft, BS+, NT/ND
EXT: No edema, LEs warm
[2024-06-19 15:27] LABS: Glucose - Point of Care 112 mg/dl (70-99)
[2024-06-19 15:32] LABS: B.E. -2.7 mmol/L; HCO3 24.9 mmol/L (21-28); Ionized Calcium 1.19 mMOL/L (1.15-1.33); O2 Saturation % 93.6 % (94-98); PCO2 53 mmHg (35-48); PO2 70 mmHg (83-108); Potassium 4.5 mMOL/L (3.5-5.1); Sodium 136 mMOL/L (136-145); pH 7.28 (7.35-7.45)
--- NOTE | 2024-06-19 15:34 | CON.INTV ---
Consultation
Consultation Request
Date/Time Consultation Requested: 06/19/2024
Date/Time Consultation Performed: 06/19/2023
Requesting Provider: Dr. Estrada
Performing Provider: Dr. Rickie Mojica
Reason for Consultation: Status post coronary artery bypass
Medical History
-
Chief Complaint: Shortness of breath
History of Present Illness:
63-year-old man with past medical history significant for COPD, hypertension, hyperlipidemia, tobacco abuse, heart failure. Recently admitted to the hospital with newly diagnosed heart failure. Found to have multivessel coronary artery disease.
He was deemed candidate for revascularization.
Admitted to the hospital for coronary artery bypass. Surgery underwent on 06/19/[address] Estrada without complications.
Currently in the critical care unit. Intubated mechanical ventilation.
Chest tube in place.
Records reviewed
Past Medical History
Past Medical History: Other (See assessment and)
Past Surgical History: Other (Above as per HPI)
Social History
Tobacco: Smoker
Alcohol: None
Drug: None
Living: Other (Significant other)
Family History
Family History: Unable to Obtain
Allergies / Home Medications
Allergies
Allergy/AdvReac Type Severity Reaction Status Date / Time
No Known Allergies Allergy Verified 06/03/24 08:52
Home Medications
�Medication �Instructions �Recorded �Confirmed �Last Taken �Type
aspirin 81 mg chewable tablet 81 mg PO DAILY Blood Clot 06/19/24 06/19/24 06/18/24 09:00 History
Prevention/Tx
carvedilol 6.25 mg tablet 6.25 mg PO BID Heart Failure 06/19/24 06/19/24 06/18/24 17:00 History
furosemide 40 mg tablet (Lasix) 40 mg PO DAILY Heart Failure 06/19/24 06/19/24 06/18/24 09:00 History
losartan 25 mg tablet 12.5 mg PO DAILY Heart Failure 06/19/24 06/19/24 06/18/24 09:00 History
potassium chloride 20 mEq 20 meq PO DAILY Electrolyte 06/19/24 06/19/24 06/18/24 09:00 History
tablet,extended release Repletion
rosuvastatin 40 mg tablet 40 mg PO QPM High Cholesterol 06/19/24 06/19/24 06/18/24 18:00 History
Review of Systems
-
Unable to Obtain full review of systems at this time due to: Patient Intubation
Vitals / Labs / Diagnostic Testing
Vital Signs
Temp Pulse Resp BP Pulse Ox
97.6 F 87 18 135/57 96
06/19/24 05:15 06/19/24 05:15 06/19/24 05:15 06/19/24 05:27 06/19/24 05:15
Laboratory Results
06/19/24
15:23
pH 7.28 L
pCO2 53 H
pO2 70 L
HCO3 24.9
O2 Delivery Level
Diagnostic Testing:
Physical Exam
-
HEENT: Normocephalic and Other (ET tube in place)
Cardiovascular: S1/S2
Respiratory: Clear and Other (Chest tube in place without excessive drainage or air leak)
GI: Soft and Non Distended
Neurology: Other (Sedated, mechanical mental)
General: Comfortable
Assessment
-
63-year-old man with recent diagnosis multivessel coronary disease or heart failure. Deemed candidate for revascularization. Admitted on 06/19/2024 and underwent coronary artery by without complications by Dr. Estrada. Critical care was consulted
for postoperative ICU management
Status postcoronary bypass x 4 06/19/2024 Dr. Estrada
Postoperative mechanical ventilation
Postoperative anemia
Conditions present prior admission:
Multivessel coronary artery disease
Systolic cardiomyopathy-ischemic
Hypertension
Chronic leukocytosis
Tobacco abuse
Assessment and plan:
His doing well postop-currently on mechanical ventilation and appears comfortable.
ABG reviewed: Mild hypercapnia. Should improve as sedation wears off.
Continue SIMV mode with no change
Spontaneous breathing trial per protocol once sedation wears off.
Anemia noted-no evidence of acute bleeding
Follow H&H serially
Hemodynamics -on very low-dose dobutamine, also nitroglycerin.
PA catheter arterial line in place
Will follow hemodynamics and decrease inotropes as necessary
Renal function is normal
Salgado urinary output-Salgado
Chest tube with no excessive drainage-no air leak.
Chest x-ray reviewed: With no pneumothorax or fluid collections. Cardiomegaly
Remain nothing by mouth
Head of the bed elevation
Glycemic control per protocol
DVT prophylaxis when safe from the surgical perspective.
Critical care statement: A total of 31 minutes of critical care time was provided for this patient today. This includes management of unstable vital signs, evaluation of the patient at bedside, reviewing the patient's pertinent medical records
including ventilator settings, arterial blood gases, radiographs, microbiology, laboratory evaluations and discussion with primary team, critical care nursing, and respiratory therapy.
[2024-06-19 15:35] LABS: Hematocrit 44.8 % (39.0-52.0); Hemoglobin 15.1 g/dL (13.0-18.0); Platelet Count 151 10^3/uL (130-400)
--- NOTE | 2024-06-19 15:35 | CM ---
Recd consult for Advanced Directive.
Pt. in OR today.
Will meet w/ patient on Saturday to provide paperwork, as requested.
[2024-06-19 15:45] LABS: Blood Urea Nitrogen 26 mg/dl (9-20); Estimated Creatinine Clearance 87 ml/min; Glucose 113 mg/dl (70-99); Magnesium 3.2 mg/dl (1.6-2.3)
[2024-06-19] MEDS: NEURONTIN PO ×2 (15:48→21:43)
[2024-06-19] MEDS: PACERONE PO (15:48)
[2024-06-19] MEDS: NSS 500 IV (15:48)
[2024-06-19 15:52] LABS: INR 1.33; PT 16.7 Sec (11.4-14.6)
[2024-06-19 15:53] LABS: APTT 31.5 Sec (23.4-35.0)
[2024-06-19 16:12] LABS: Glucose - Point of Care 128 mg/dl (70-99)
--- NOTE | 2024-06-19 16:45 | PTCARENOTE ---
Pt awakens calmly. Follows commands to wiggle toes, squeeze hands, and lift head off the bed. RT at bedside to place pt on cpap trial. POX 93% tolerating.
[2024-06-19 17:05] LABS: Glucose - Point of Care 118 mg/dl (70-99)
--- NOTE | 2024-06-19 17:20 | PTCARENOTE ---
Pt bathed with CHG wipes. Turned from side to side without significant dump in chest tubes. Pt tolerated.
--- NOTE | 2024-06-19 17:28 | W.PN.UPDATE ---
Update Note
Progress Note Update
63 year old male was electively admitted for CABG due to triple-vessel coronary disease.
IV fluids: 1000
U.O.:� 350
Blood:� none
Wires:� none
Inotropes:� Dobutamine
Pressors:� Levophed
Sedatives:� Precedex
�
NEURO: sedated on Precedex, pupils +2mm B/L
RESP: #8OT @24cm> 500/60%/14/5. Lungs clear B/L. 2 mediastinal (15cc on arrival) and R/L pleural (10cc on arrival) chest tubes to -20cm suction. Sanguineous drainage
CV: RRR +S1, S2, no S3, no�rub, no murmur. Aquacell to median sternotomy. RIJ w/o swan
ABD: round, soft, no BS
EXT: no edema, +2/4 DP pulses B/L, no femoral bruit, XXLE RINA wrap intact; left radial A-line intact
: Salgado with clear yellow urine
�
A/P: POD #0 s/p CABG x 4 (DMITRY to LAD, GSV to D1, GSV to OM4, GSV to RPDA)
REMI: EF� 50% on Dobutamine/Levophed (improved from 40% on TTE 04/13/24), mild-moderate AI/MR (unchanged from TTE 04/13/24)
- wean and extubate
- wean Dobutamine off
# CAD
- will require ASA/Plavix, statin, beta-ravindra (on Coreg @ home)'
# HFimpEF (EF 40>50% s/p CABG)
- resume ARB as BP permits
- possible Farxiga on discharge
�
�
# prediabetes (A1C 5.8)
- insulin infusion x 24h
- add SSI on transition form insulin if high insulin requirements
# Obesity (BMI 38.1)
- need education for reduced calorie diet and methods to increase activity/caloric expenditure
# COPD/tobacco abuse (quit a few days prior to surgery)
- FEV1 66%
- evaluate for nicotine with drawl>add Nicotine patch if needed
�
[2024-06-19 17:31] LABS: B.E. -2.9 mmol/L; HCO3 23.2 mmol/L (21-28); Ionized Calcium 1.13 mMOL/L (1.15-1.33); PCO2 44 mmHg (35-48); PO2 74 mmHg (83-108); Potassium 4.4 mMOL/L (3.5-5.1); pH 7.33 (7.35-7.45)
[2024-06-19 17:32] LABS: O2 Therapy cpap 40%
[2024-06-19] MEDS: OFIRMEV 100 IV (17:34)
--- NOTE | 2024-06-19 17:36 | PTCARENOTE ---
Cpap ABG resulted, CT FISH BONING MACHINE FEEDER at bedside, orders to extubate patient. RT at bedside, pt extubated to 6L NC. POX 91%. Able to state his name and . IS encouraged 500mL achieved.
[2024-06-19] MEDS: CALCIUM GLUCONATE 100 IV ×2 (17:46→21:25)
[2024-06-19 17:49] LABS: Total Thyroxine 8.72 ug/dl (5.5-11.0)
[2024-06-19 18:01] LABS: Glucose - Point of Care 115 mg/dl (70-99)
[2024-06-19 18:02] LABS: TSH 0.78 uIU/ml (0.47-4.68)
[2024-06-19] MEDS: CRESTOR PO (18:36)
[2024-06-19 19:02] LABS: Glucose - Point of Care 122 mg/dl (70-99)
[2024-06-19 19:10] LABS: Hematocrit 44.8 % (39.0-52.0); Hemoglobin 15.3 g/dL (13.0-18.0); Platelet Count 184 10^3/uL (130-400)
[2024-06-19 20:20] LABS: Glucose - Point of Care 119 mg/dl (70-99)
[2024-06-19] MEDS: LOW STRENGTH ASPIRIN 81 MG PO (20:28)
[2024-06-19] MEDS: DILAUDID 0.25 MG IV (20:29)
[2024-06-19] MEDS: ANCEF 5 IV (20:29)
[2024-06-19] MEDS: SENOKOT-S PO (20:30)
--- NOTE | 2024-06-19 20:30 | PTCARENOTE ---
Patient received resting in bed. Patient A+A+Ox3. No neurological deficits noted. No c/o headache, dizziness or lightheadedness. O2 at 6L via NC. SpO2 94%. Four chest tubes - Mediastinal x2 and Right and Left Pleural - Intact and patent - 5-20
ml red drainage - No air leak. Chest tube dressing intact. Sinus Rhythm. Heart rate 80's. Rub noted. No c/o chest pain, pressure or discomfort. Abdomen soft, round. Hypoactive to normoactive bowel sounds. No BM. No c/o nausea. No vomiting.
Tolerating ice chips and sips of water. Salgado catheter - Temperature sensing - Intact and patent - Light shantanu to yellow urine - Outputs as documented. Right [place]ie Catheter. Left arterial line. A-Line, PAP and CVP - Pressure
bag/Saline flush - Flush without difficulty - Zeroed and calibrated - Waveforms within normal limits. C.O. 4.82 C.I. 2.04 SVR 1128 PAP 26/15 (20) CVP 9. Sternal dressing intact. Right groin dressing intact. Right knee site - Surgical adhesive
- [place] Sunday Wrap. Patient with no c/o back or flank pain. Assessment as documented.
[2024-06-19] MEDS: SODIUM BICARBONATE 50 MEQ IV (20:40)
--- NOTE | 2024-06-19 21:45 | PTCARENOTE ---
Sodium Bicarbonate 50 mEq/50ml IV given per PA order (Luca PRATT-Catrachito). Calcium Gluconate 2gram/100ml over 1hr ordered by PA - Infusing without difficulty. Patient sleeping. Assessment as documented.
[2024-06-19 22:07] LABS: Glucose - Point of Care 125 mg/dl (70-99)
[2024-06-19] MEDS: PACERONE 200 MG PO (22:31)
[2024-06-19] MEDS: DILAUDID 0.5 MG IV (22:32)
--- NOTE | 2024-06-19 22:45 | PTCARENOTE ---
Patient with c/o 10/10 Sternal pain - IV Dilaudid 0.5mg given without difficulty - Positive relief provided. C.O. 5.93 C.I. 2.51 SVR 728 PAP (20) CVP 9. Assessment/Interventions as documented.
[2024-06-19 23:58] LABS: Glucose - Point of Care 112 mg/dl (70-99)
[2024-06-20] VITALS (24 sets, daily range): BP systolic 103–140; BP diastolic 53–80; PULSE 86; O2SAT 94–95; BMI 38.8
--- NOTE | 2024-06-20 00:15 | PTCARENOTE ---
Patient sleeping. A+A+Ox3 during periods of care. No neurological deficits noted. C.O. 6.82 C.I. 2.89 SVR 715 PAP 09/06 (17) CVP 8. Assessment/Interventions as documented.
--- NOTE | 2024-06-20 00:45 | W.PN.CT ---
Today's Communication / Plan
-
Plan:
-No major issues overnight. Hemodynamically and neurologically intact
-Pt successfully extubated yesterday 06/19/24 @ 1740
-Weaned off Levophed and dobutamine last night, remains on insulin gtt per protocol
-Last CI 2.5, U/O since OR 1200 mL
-Monitor chest tube output: 2meds 100/185, R/L pleural 60/140
-AM cxr is pending
-Cont. current meds (ASA, Plavix, Crestor, Amiodarone, Lopressor)
-D/C'd swan and a-line @ 0500
-D/C'd stone catheter @ 0600
-Transfer to tele phase today when off insulin gtt per protocol
-Maintain cordis
-No PW
-Wean off of O2 as tolerated
-Encourage use of IS
-OOB into chair/Ambulate
Assessment / Plan
-
Assessment:
-S/P Median sternotomy/CABG x 4 (DMITRY to LAD, GSV to D1, GSV to OM4, GSV to RPDA)/ Endoscopic harvest/prep of RLE GSV, by Dr. Estrada, 06/19/24, pod#1
-Severe 3v CAD
-Severely dilated left atrium
-Moderately dilated right atrium
-Mid Asc. Aorta dilation (4.0 cm)
-Severe sessile atheroma @ distal aortic arch
-Moderate sessile atheroma @ descending aorta
-Mild-moderate AI
-Mild TR
-LVEF 50% per intraop REMI
-ICM
-Acute systolic CHF S/P intubated with VDRF
-Recent suspected PNA
-COPD
-Former tobacco abuse (40 pk/yr, quit 04/15/24)
-Chronic leukocytosis
-HTN
-HLD
-Prediabetes (A1C 5.8)
-Osteoarthritis
-S/P B/L hip replacement, 2020
-Acute postop atelectasis
-Acute postop pulmonary insufficiency
-Acute postop hypovolemia with subsequent hypervolemia
Plan:
-No major issues overnight. Hemodynamically and neurologically intact
-Pt successfully extubated yesterday 06/19/24 @ 1740
-Weaned off Levophed and dobutamine last night, remains on insulin gtt per protocol
-Last CI U/O since OR mL
-Monitor chest tube output: 2meds , R/L pleural
-AM cxr is pending
-Cont. current meds (ASA, Plavix, Crestor, Amiodarone, Lopressor)
-D/C'd swan and a-line @ 0500
-D/C stone catheter @ 0600
-Transfer to [facility] phase today when off insulin gtt per protocol
-Maintain cordis
-No PW
-Wean off of O2 as tolerated
-Encourage use of IS
-OOB into chair/Ambulate
Discussed patient care with: Cardiology, Nursing, Respiratory Therapy, Pharmacy and Care Team
Subjective
Procedure
S/P Median sternotomy/CABG x 4 (DMITRY to LAD, GSV to D1, GSV to OM4, GSV to RPDA)/ Endoscopic harvest/prep of RLE GSV, by Dr. Estrada, 06/19/24
-
Date of Service: June 20, 2024
C/O incisional pain, otherwise feels well
Objective Data
-
PT 16.7 Sec (11.4-14.6) H 06/19/24 15:23
INR 1.33 06/19/24 15:23
APTT 31.5 Sec (23.4-35.0) 06/19/24 15:23
Vital Signs
Vital Signs
Temp Pulse Resp BP Pulse Ox
98.4 F 85 18 107/61 94
06/20/24 00:15 06/20/24 00:15 06/20/24 00:15 06/20/24 00:15 06/20/24 00:15
CT Intake/Output/Weight
06/19/24 06/19/24 06/20/24
06:59 18:59 06:59
Intake Total 462.9 / 878.8 415.9 / 878.8
Output Total 490 / 1050 560 / 1050
Balance -27.1 / -171.2 -144.1 / -171.2
SaO2: 94 (6L)
Physical Exam
-
General: Awake, Oriented and AOx3
Cardiovascular: Regular rate & rhythm, No Murmurs, Rub (likely friction rub from chest tubes) and No Gallop
Respiratory: Decreased Breath Sounds (at bases, otherwise clear)
Sternum: Stable
Incision: Clean, Dry, Intact and Dressing Intact
Extremities: Other (+trace edema)
Data Reviewed
-
Lab Results: Results Reviewed
Medications: Active Meds Reviewed
Chest X-Ray: Report Reviewed and Image Reviewed
ECG: Report Reviewed and Image Reviewed
[2024-06-20 01:10] LABS: Glucose - Point of Care 110 mg/dl (70-99)
[2024-06-20] MEDS: DILAUDID 0.5 MG IV ×2 (01:36→14:32)
[2024-06-20 02:10] LABS: Glucose - Point of Care 104 mg/dl (70-99)
[2024-06-20 03:26] LABS: Glucose - Point of Care 118 mg/dl (70-99)
[2024-06-20] MEDS: DILAUDID 0.25 MG IV (03:31)
[2024-06-20] MEDS: ANCEF 5 IV ×2 (03:31→12:23)
[2024-06-20 03:54] LABS: Glucose - Point of Care 109 mg/dl (70-99)
[2024-06-20 04:26] LABS: Hematocrit 43.3 % (39.0-52.0); Hemoglobin 14.5 g/dL (13.0-18.0); Mean Corp Hgb Conc. 33.5 g/dL (33.0-37.0); Mean Corpuscular Hgb 30.9 pg (27.0-31.0); Mean Corpuscular Volume 92.1 fL (80.0-94.0); Mean Platelet Volume 11.3 fL (7.4-10.4); Platelet Count 182 10^3/uL (130-400); Red Cell Dist. Width 14.1 % (11.5-14.5); White Blood Cell Count 19.9 10^3/uL (4.8-10.8)
[2024-06-20 04:48] LABS: Blood Urea Nitrogen 27 mg/dl (9-20); Calcium 8.6 mg/dl (8.4-10.2); Carbon Dioxide 24 mmol/L (22-30); Chloride 106 mmol/L (98-107); Estimated Creatinine Clearance 96 ml/min; Glucose 108 mg/dl (70-99); Magnesium 2.6 mg/dl (1.6-2.3); Potassium 4.3 mmol/L (3.5-5.1); Sodium 140 mmol/L (135-145); eGFR > 60.00
[2024-06-20 05:07] LABS: Glucose - Point of Care 103 mg/dl (70-99)
[2024-06-20] MEDS: TYLENOL 1000 MG PO ×3 (05:18→21:14)
[2024-06-20] MEDS: ROXICODONE 5 MG PO ×4 (05:18→21:52)
--- NOTE | 2024-06-20 06:15 | PTCARENOTE ---
Patient A+A+Ox3. No neurological deficits noted. C.O. 5.90 C.I. 2.50 SVR 922 PAP (22) CVP 9. AM lab work collected and sent. EKG completed. Patient given CHG bath and linens changed. Chest tube dressing changed. Portable CXR
completed. Patient de-lined. Salgado discontinued - Due to void at 12pm. OOB to chair. Assessment/Interventions as documented.
--- NOTE | 2024-06-20 07:00 | PTCARENOTE ---
Bedside walking rounds reprot received: patient seen on rounds oob in chair on 6l nasal canula oxygen: goal is to titrate to off today. Neuro status intact. Has some tingling in left fingers: CT surgery aware : will continue to monitor. NSR on
monitor. Chest tubes x 4 draining serosanguineous drainage: no dumping with standing to reposition. Denies nausea. See flow record for pain management documentation.Educated about impotance of pulmonary toileting. See flowrecord for pain management
documentation.
[2024-06-20 08:24] LABS: Glucose - Point of Care 95 mg/dl (70-99)
[2024-06-20] MEDS: TORADOL 15 MG IV (08:26)
[2024-06-20] MEDS: LIDOCAINE 4% PATCH 1 PATCH TOPICAL (08:27)
[2024-06-20] MEDS: SENOKOT-S 1 TABLET PO ×2 (08:28→21:13)
[2024-06-20] MEDS: NEURONTIN 100 MG PO ×3 (08:28→21:14)
[2024-06-20] MEDS: PLAVIX 75 MG PO (08:28)
[2024-06-20] MEDS: LOW STRENGTH ASPIRIN 81 MG PO (08:28)
[2024-06-20] MEDS: PACERONE 200 MG PO ×3 (08:28→21:13)
[2024-06-20] MEDS: MUCINEX 600 MG PO ×2 (08:28→21:14)
[2024-06-20] MEDS: MAGNESIUM OXIDE 500 MG PO ×2 (08:28→21:14)
[2024-06-20] MEDS: PROTONIX 40 MG PO (08:28)
[2024-06-20] MEDS: BACTROBAN 2% OINTMENT 1 APPLIC NASAL ×2 (08:29→21:13)
[2024-06-20] MEDS: LOPRESSOR 12.5 MG PO ×3 (08:29→21:32)
[2024-06-20] MEDS: VITAMIN C 500 MG PO (08:29)
--- NOTE | 2024-06-20 08:44 | W.PN.ANS.POP ---
Anesthesia Post Operative
- Anesthesia Post Op Note
Vital Signs Stable-See Nursing Note: Yes
Airway Patent: Yes
Adequate Pain Control: Yes
Change in Mental Status: No
Current Postoperative Nausea & Vomiting: No
Anesthesia Complications: No
General Anesthetic Recall: No
Unplanned Admission: No
Post Op Hydration Adequate: Yes
- -
Pt OOB to chair, no anesthesia related C/O at time of post op visit. VSS, no n/v.
--- NOTE | 2024-06-20 08:59 | W.PN.CARDCBS ---
Today's Communication / Plan
-
Stable cardiology status status post CABG
Remains in sinus rhythm
Discussed with nursing
Impression / Plan
-
Primary Manufacturing Automation Engineer:CECIL Vizcarra
Impression:
Multivessel CAD s/p CABG x 4 06/19/2024 (DMITRY-LAD, GSV-D1, GSV-OM4, GSV-RPDA)
ischemic cardiomyopathy
acute HF/flash pulm edema 04/10/2024 -[facility] admission
COPD
HTN
HLD
Tobacco use
FH of CAD
Suspected PNA/COPD exacerbation 04/10/2024
Cardiac catheterization 04/16/2024:
Left main: Short and unobstructed
LAD: D1 with long 80% mid stenosis. Mid LAD beyond D1 with 70% eccentric stenosis and long 70% mid to distal LAD stenosis.
Circumflex: Mid circumflex with 40 to 50% stenosis. OM 2 occluded at origin. OM 3 small. OM 4 with 60 to 70% proximal stenosis
RCA: 60% proximal stenosis, mid RCA with 60 to 70% stenosis, distal RCA somewhat ectatic supplying moderate caliber PDA and PL branch
ECHO 04/11/24:
- Left ventricle is moderately dilated. Mild concentric left ventricular hypertrophy.
- Moderately- severely reduced left ventricular systolic function. Global hypokinesis. LVEF 30-35%
- Stage II diastolic dysfunction suggestive of abnormal relaxation and increased filling pressures.
- Mildly dilated left atrium.
- Mild to moderate mitral regurgitation.
- Mild to moderate aortic regurgitation
- Small pericardial effusion without evidence of hemodynamic compromise.
- Pleural effusion present.
Plan:
Stable cardiology status status post CABG
[place]-Jacquie has been discontinued and off dobutamine
Remains in sinus rhythm
Chest tubes remain in place
Outpt cardiac meds:
Carvedilol 6.25 mg twice daily
Rosuvastatin 40 mg a day
Furosemide 40 mg daily
Losartan 12.5 mg daily
Potassium 20 meq daily
Progress Note - Manufacturing Automation Engineer
Subjective
Date of Service: June 20, 2024
No complaints
Objective
Labs:
06/20/24 03:45
06/20/24 03:45
Labs
Hgb 14.5 g/dL (13.0-18.0) 06/20/24 03:45
Hct 43.3 % (39.0-52.0) 06/20/24 03:45
Plt Count 182 10^3/uL (130-400) 06/20/24 03:45
PT 16.7 Sec (11.4-14.6) H 06/19/24 15:23
INR 1.33 06/19/24 15:23
APTT 31.5 Sec (23.4-35.0) 06/19/24 15:23
Sodium 140 mmol/L (135-145) 06/20/24 03:45
Potassium 4.3 mmol/L (3.5-5.1) 06/20/24 03:45
BUN 27 mg/dl (9-20) H 06/20/24 03:45
Creatinine 1.0 mg/dL (0.7-1.3) 06/20/24 03:45
Glucose 108 mg/dl (70-99) H 06/20/24 03:45
Vital Signs and I&O:
Vital Signs
Temp Pulse Resp BP Pulse Ox
97.5 F 93 22 140/70 94
06/20/24 08:00 06/20/24 08:15 06/20/24 08:00 06/20/24 08:00 06/20/24 08:15
Vital Signs
Temp Pulse Resp BP Pulse Ox
97.5 F 93 22 140/70 94
06/20/24 08:00 06/20/24 08:15 06/20/24 08:00 06/20/24 08:00 06/20/24 08:15
Intake & Output
06/18/24 06/19/24 06/20/24 06/21/24
06:59 06:59 06:59 06:59
Intake Total 1304.2 / 1304.2 371.8 / 371.8
Output Total 1570 / 1570 80 / 80
Balance -265.8 / -265.8 291.8 / 291.8
Physical Exam
Physical Exam
General: Well developed, well nourished in NAD.
Neck: Supple, no JVD, HJR, carotids +2 B/L, no bruits bilaterally.
Heart: Non displaced PMI, RRR, no murmurs, No S3, S4, no rubs.
Lungs: Scattered rhonchi
Sternal dressings noted
Extremities: No clubbing, cyanosis or edema bilaterally.
Neuro: Grossly nonfocal, awake, alert and oriented x3.
[2024-06-20] MEDS: LASIX 40 MG IV (09:25)
[2024-06-20 10:16] LABS: Glucose - Point of Care 127 mg/dl (70-99)
--- NOTE | 2024-06-20 11:00 | PTCARENOTE ---
Decreased oxygen to 2L nasal canula. Ambulated patient to bathroom with assist of 1. Flatulence but no BM: voided large amount clear shantanu urine. NSR to ST on monitor.
[2024-06-20 12:22] LABS: Glucose - Point of Care 101 mg/dl (70-99)
[2024-06-20 13:54] LABS: Glucose - Point of Care 94 mg/dl (70-99)
[2024-06-20] MEDS: NSS IV (14:29)
--- NOTE | 2024-06-20 15:00 | PTCARENOTE ---
No acute changes: oob in chair. NSR to ST/pvc with exertion. Insulin gtt dc.
[2024-06-20 15:43] LABS: Glucose - Point of Care 119 mg/dl (70-99)
--- NOTE | 2024-06-20 15:46 | W.PN.INTV ---
Today's Communication / Plan
Recommendations
Continue postoperative care
For chest tube output follow
diuresis
Follow renal function
Follow H&H
Incentive spirometer
Increase activity as able
Sign off
Assessment
-
63-year-old man with recent diagnosis multivessel coronary disease or heart failure. Deemed candidate for revascularization. Admitted on 06/19/2024 and underwent coronary artery by without complications by Dr. Estrada. Critical care was consulted
for postoperative ICU management
Status postcoronary bypass x 4 06/19/2024 Dr. Estrada
Postoperative mechanical ventilation
Postoperative anemia
Conditions present prior admission:
Multivessel coronary artery disease
Systolic cardiomyopathy-ischemic
Hypertension
Chronic leukocytosis
Tobacco abuse
Assessment and plan:
Postoperative day 1
Extubated 06/19/2024
Hemodynamically and neurologically intact
Chest x-ray with some congestion: Diuresis per primary team
For urinary output
Anemia noted-no evidence of acute bleeding
Follow H&H serially
Hemodynamics -stable.
PA catheter has been discontinued
Arterial line discontinue
Chest tube with no excessive drainage-no air leak.
Chest x-ray reviewed: Pulmonary vascular congestion without collections, no pneumothorax. Cardiomegaly
Advance diet
Head of the bed elevation
Glycemic control per protocol
DVT prophylaxis when safe from the surgical perspective.
Continue postoperative care
Critical care team will sign off
Telemetry
Subjective Dataa
Subjective Data
Date of Service:
Date of Service: June 20, 2024
Chief Complaint: Gym Supervisor Follow Up ( status post coronary artery bypass)
Subjective:
No overnight events
Pain is controlled
Denies shortness of breath at rest
No significant phlegm production
Review of Systems
Cardiopulmonary: Dyspnea and Chest Pain (Controlled)
GI: Abdominal Pain (n) and Nausea (n)
Objective Data
Data Reviewed
Vital Signs / I&O / Oxygen:
Vital Signs
Temp Pulse Resp BP Pulse Ox
98.3 F 97 20 118/59 91
06/20/24 15:32 06/20/24 15:35 06/20/24 15:32 06/20/24 15:32 06/20/24 15:35
Intake and Output
06/19/24 06/20/24 06/21/24
06:59 06:59 06:59
Intake Total 1304.2 / 1304.2 1660.3 / 1660.3
Output Total 1570 / 1570 260 / 260
Balance -265.8 / -265.8 1400.3 / 1400.3
SaO2 [CPAP/PSV] 93
SaO2 [SIMV] 92
SaO2 91
Nasal Cannula flow liters per 1.5
minute
Physical Exam
General: Comfortable
HEENT: Normocephalic
Cardiovascular: S1-S2
Respiratory: Clear and Chest Tube (No excessive drainage, no airleak)
GI: Soft
Neurology: Awake
Labs/Micro/Reports
Lab Data
06/20/24 03:45
06/20/24 03:45
Laboratory Results
06/19/24 06/19/24
15:23 17:18
PT 16.7 H
INR 1.33
APTT 31.5
pH 7.33 L
pCO2 44
pO2 74 L
HCO3 23.2
O2 Delivery Level cpap 40%
Microbiology
06/19/24 07:20 Urine Urine Culture - Preliminary
Gram negative bacilli
[2024-06-20] MEDS: CRESTOR 40 MG PO (17:45)
[2024-06-20] MEDS: CORDARONE 103 MG IV (19:37)
--- NOTE | 2024-06-20 20:25 | PTCARENOTE ---
received pt from previous rn. pt AAOx4, VSS, NSR per tele monitor HR 90s. +rub, +pulses, B/L LE trace edema, pox 92% on RA, lungs diminished throughout. CTx4 hooked to -20cm wall suction draining serosanguineous fluid, no air leak/crepitus/tidaling
noted, +bs, voids clear yellow urine, R leg incision ecchymotic, Sternal incision and R groin puncture intact, CT c/d/i, piv flushes and intact, RIJ Cordis not flushing, CTPA Ed made aware, plan of care discussed questions encouraged.
[2024-06-20] MEDS: FLEXERIL 5 MG PO (21:14)
--- NOTE | 2024-06-20 23:07 | PTCARENOTE ---
VSS, NSR per tele monitor HR 70s, assessment remains unchanged
[2024-06-21] VITALS (15 sets, daily range): BP systolic 82–141; BP diastolic 59–78; BMI 39.5
--- NOTE | 2024-06-21 04:18 | W.PN.CT ---
Today's Communication / Plan
-
Plan:
-No major issues overnight. Hemodynamically and neurologically intact
-Weaned off all drips
-Consider d/c of chest tubes: 2meds 50/205, R/L pleural 35/160
-AM cxr looks clear to my eyes, mild atelectasis, no ptx, f/u official report
-Tolerating increased Lopressor to 25 mg BID, was on Coreg @ home, will likely transition tomorrow
-Cont. current meds (ASA, Plavix, Crestor, Amiodarone, Lopressor)
-No temporary PW
-Cordis kinked and d/c'd this AM @ 0430
-Monitor hyponatremia, 133. Fluid restriction, will give Lasix today
-Magnesium 2.4, will place mag oxide on hold
-Wean off of O2 as tolerated
-Encourage use of IS
-OOB into chair/Ambulate
-Home in 1-2 days
Assessment / Plan
-
Assessment:
-S/P Median sternotomy/CABG x 4 (DMITRY to LAD, GSV to D1, GSV to OM4, GSV to RPDA)/ Endoscopic harvest/prep of RLE GSV, by Dr. Estrada, 06/19/24, pod#2
-Severe 3v CAD
-Severely dilated left atrium
-Moderately dilated right atrium
-Mid Asc. Aorta dilation (4.0 cm)
-Severe sessile atheroma @ distal aortic arch
-Moderate sessile atheroma @ descending aorta
-Mild-moderate AI
-Mild TR
-LVEF 50% per intraop REMI
-ICM
-Acute systolic CHF S/P intubated with VDRF
-Recent suspected PNA
-COPD
-Former tobacco abuse (40 pk/yr, quit 04/15/24)
-Chronic leukocytosis
-HTN
-HLD
-Prediabetes (A1C 5.8)
-Osteoarthritis
-S/P B/L hip replacement, 2020
-Acute postop atelectasis
-Acute postop pulmonary insufficiency
-Acute postop hypovolemia with subsequent hypervolemia
-Acute postop hyponatremia, 133
-Acute postop hypermagnesemia, 2.6
Discussed patient care with: Cardiology, Nursing, Respiratory Therapy, Pharmacy and Care Team
Subjective
Procedure
S/P Median sternotomy/CABG x 4 (DMITRY to LAD, GSV to D1, GSV to OM4, GSV to RPDA)/ Endoscopic harvest/prep of RLE GSV, by Dr. Estrada, 06/19/24
-
Date of Service: June 21, 2024
Pt c/o mild incisional pain, otherwise feels well
Objective Data
-
PT 16.7 Sec (11.4-14.6) H 06/19/24 15:23
INR 1.33 06/19/24 15:23
APTT 31.5 Sec (23.4-35.0) 06/19/24 15:23
Vital Signs
Vital Signs
Temp Pulse Resp BP Pulse Ox
98.6 F 78 22 111/54 95
06/20/24 23:06 06/20/24 23:05 06/20/24 23:06 06/20/24 23:03 06/20/24 23:06
CT Intake/Output/Weight
06/20/24 06/20/24 06/21/24
06:59 18:59 06:59
Intake Total 841.3 / 1304.2 1670.3 / 1770.3 100 / 1770.3
Output Total 1080 / 1570 280 / 340 60 / 340
Balance -238.7 / -265.8 1390.3 / 1430.3 40 / 1430.3
SaO2: 95 (2L)
Physical Exam
-
General: Awake, Oriented and AOx3
Cardiovascular: Regular rate & rhythm, No Murmurs and Rub (likely friction rub from chest tubes)
Respiratory: Decreased Breath Sounds (at bases, otherwise clear)
Sternum: Stable
Incision: Clean, Dry, Intact and Dressing Intact
Extremities: Other (+trace edema)
Data Reviewed
-
Lab Results: Results Reviewed
Medications: Active Meds Reviewed
Chest X-Ray: Report Reviewed and Image Reviewed
ECG: Report Reviewed and Image Reviewed
--- NOTE | 2024-06-21 04:31 | PTCARENOTE ---
routine labs obtained, cordis d/c'd, VSS, assessment remains unchanged
[2024-06-21 04:38] LABS: Hematocrit 39.6 % (39.0-52.0); Hemoglobin 13.3 g/dL (13.0-18.0); Mean Corp Hgb Conc. 33.6 g/dL (33.0-37.0); Mean Corpuscular Hgb 30.9 pg (27.0-31.0); Mean Corpuscular Volume 91.9 fL (80.0-94.0); Mean Platelet Volume 10.7 fL (7.4-10.4); Platelet Count 150 10^3/uL (130-400); Red Blood Cell Count 4.31 10^6/uL (4.70-6.10); Red Cell Dist. Width 14.2 % (11.5-14.5); White Blood Cell Count 17.6 10^3/uL (4.8-10.8)
[2024-06-21 04:58] LABS: Blood Urea Nitrogen 36 mg/dl (9-20); Calcium 8.4 mg/dl (8.4-10.2); Carbon Dioxide 27 mmol/L (22-30); Chloride 101 mmol/L (98-107); Estimated Creatinine Clearance 97 ml/min; Glucose 132 mg/dl (70-99); Magnesium 2.4 mg/dl (1.6-2.3); Potassium 3.9 mmol/L (3.5-5.1); Sodium 133 mmol/L (135-145); eGFR > 60.00
[2024-06-21] MEDS: ROXICODONE 5 MG PO ×3 (05:00→21:17)
[2024-06-21] MEDS: TYLENOL 1000 MG PO ×3 (05:37→21:07)
[2024-06-21 08:14] LABS: Glucose - Point of Care 132 mg/dl (70-99)
[2024-06-21] MEDS: PROTONIX 40 MG PO (08:30)
[2024-06-21] MEDS: MUCINEX 600 MG PO ×2 (08:30→21:07)
[2024-06-21] MEDS: LOW STRENGTH ASPIRIN 81 MG PO (08:30)
[2024-06-21] MEDS: VITAMIN C 500 MG PO (08:31)
[2024-06-21] MEDS: PLAVIX 75 MG PO (08:31)
[2024-06-21] MEDS: PACERONE 200 MG PO ×3 (08:31→22:51)
[2024-06-21] MEDS: BACTROBAN 2% OINTMENT 1 APPLIC NASAL ×2 (08:31→21:12)
[2024-06-21] MEDS: SENOKOT-S 1 TABLET PO ×2 (08:31→21:09)
[2024-06-21] MEDS: NEURONTIN 100 MG PO ×3 (08:31→21:08)
[2024-06-21] MEDS: LOPRESSOR 25 MG PO (08:31)
[2024-06-21] MEDS: LASIX 40 MG IV ×2 (08:32→16:11)
[2024-06-21] MEDS: LIDOCAINE 4% PATCH 1 PATCH TOPICAL (08:32)
[2024-06-21] MEDS: NSS IV (08:39)
[2024-06-21] MEDS: KCL 40 MEQ PO (08:48)
--- NOTE | 2024-06-21 10:00 | PTCARENOTE ---
Patient care assumed from nightsnyft RN. Patient OOB in chair. Fully alert and oriented. Complains of 7/10 pain at surgical incision sites, denies need for PRN pain meds at this time. Lidocaine patch applied. CXR showed R pneumo, IR consulted.
Suction increased to -40 in R and L pleural chest tubes per Dr Staton. Pt increased from 2LNC to 6LNC per BRICK OR BLOCK MAKER. Mediastinal chest tubes x2 removed. Follow-up CXR complete. 40 mg IV lasix given, pt voiding as necessary without complication. Starting to
feel the need for BM, but continues to pass flatus at this time. Vital signs stable, NSR. Pulses palpable in upper and lower extremities. +1 generalized edema, greater in right lower extremity, non-pitting. PIV intact.
--- NOTE | 2024-06-21 12:45 | W.PN.UPDATE ---
Update Note
Progress Note Update
Right pneumothorax on this morning's cxr despite right chest tube being on suction.
Placed on IR table to place a new chest tube, but the lung had already reinflated. No intervention needed.
--- NOTE | 2024-06-21 13:40 | PTCARENOTE ---
Patient returned back from IR. No intervention required, see IR report for detail. OOB in chair. R and L Pleural chest tube set back to -20 wall suction per TIME STUDY OBSERVER. No air leaks present in chamber. No crepitus present. Patient on 2LNC with 98% O2 sats.
Denies SOB or difficulty breathing. Complains of pain at surgical incision site, administered scheduled tylenol, will assess need for PRN pain meds following. Vital signs stable.
[2024-06-21] MEDS: KCL 20 MEQ PO (16:11)
--- NOTE | 2024-06-21 16:25 | PTCARENOTE ---
Patient OOB in chair, R and L pleural chest tubes remain intact, on -20 wall suction. No bubbling noted in chamber. Patient complains of 7/10 surgical incision pain at sternal site, PRN samuel given. Will reassess pain level at due time. Vital signs
stable, pt continued on 2LNC. Denies SOB. Second daily dose of IV lasix 40mg given. Voiding with no complications.
[2024-06-21] MEDS: CRESTOR 40 MG PO (18:36)
--- NOTE | 2024-06-21 19:30 | PTCARENOTE ---
received pt from previous rn. pt AAOx4, VSS, NSR per tele monitor HR 90s. +rub, +pulses, pox 91% on RA, lungs diminished throughout. CTx2 hooked to -20cm wall suction draining serosanguineous fluid, no air leak/crepitus/tidaling noted, +bs, voids
clear yellow urine, R leg incision slightly ecchymotic, Sternal incision and R groin puncture intact, CT c/d/i, piv flushes and intact, plan of care discussed questions encouraged.
[2024-06-21] MEDS: COREG 6.25 MG PO (21:08)
[2024-06-21] MEDS: CORDARONE 103 MG IV (21:29)
--- NOTE | 2024-06-21 22:57 | PTCARENOTE ---
VSS, NSR per tele monitor, Hr 80s, pt complaining of 6/10 pain at sternal incision, see MAR, otherwise assessment remains unchanged
[2024-06-22] VITALS (14 sets, daily range): BP systolic 87–154; BP diastolic 49–84; PULSE 77; O2SAT 95–96; BMI 39.1
--- NOTE | 2024-06-22 04:01 | PTCARENOTE ---
routine labs obtained, VSS, NSR per tele monitor HR 70s, assessment remains unchanged
[2024-06-22 04:09] LABS: Hematocrit 41.3 % (39.0-52.0); Hemoglobin 13.8 g/dL (13.0-18.0); Mean Corp Hgb Conc. 33.4 g/dL (33.0-37.0); Mean Corpuscular Hgb 30.9 pg (27.0-31.0); Mean Corpuscular Volume 92.6 fL (80.0-94.0); Mean Platelet Volume 10.9 fL (7.4-10.4); Platelet Count 153 10^3/uL (130-400); Red Blood Cell Count 4.46 10^6/uL (4.70-6.10); Red Cell Dist. Width 13.9 % (11.5-14.5); White Blood Cell Count 13.9 10^3/uL (4.8-10.8)
--- NOTE | 2024-06-22 04:27 | W.PN.CT ---
Today's Communication / Plan
-
Plan:
-No major issues overnight. Hemodynamically and neurologically intact
-Off all drips
-Had postop right apical pneumothorax which resolved while down @ IR for pigtail placement. Ptx likely resolved d/t increase suction to -40 prior to going to IR
-Chest tube is currently @ -20 cmh2o wall suction with intermittent air leak noted
-CxR this AM shows recurrent right apical ptx on my review, likely d/t reduced suction. F/u official report
-Will discuss placement of new pigtail vs increase suction on current chest tube
-Consider d/c of Left pleural chest tube, chest tube drainage: R/L pleural 70/135
-Transitioned Lopressor to home dose Coreg of 6.25 BID
-Cont. current meds (ASA, Plavix, Crestor, Amiodarone, Coreg)
-Hyponatremia has resolved 133-> 137. Cont. Fluid restriction, will give Lasix today, wt up 6 lbs from preop, down 3 lbs from yesterday
-Magnesium 2.2, will resume mag oxide
-Wean off of O2 as tolerated
-Encourage use of IS
-OOB into chair/Ambulate
-Home in 1-2 days
Assessment / Plan
-
Assessment:
-S/P Median sternotomy/CABG x 4 (DMITRY to LAD, GSV to D1, GSV to OM4, GSV to RPDA)/ Endoscopic harvest/prep of RLE GSV, by Dr. Estrada, 06/19/24, pod#3
-Severe 3v CAD
-Severely dilated left atrium
-Moderately dilated right atrium
-Mid Asc. Aorta dilation (4.0 cm)
-Severe sessile atheroma @ distal aortic arch
-Moderate sessile atheroma @ descending aorta
-Mild-moderate AI
-Mild TR
-LVEF 50% per intraop REMI
-ICM
-Acute systolic CHF S/P intubated with VDRF
-Recent suspected PNA
-COPD
-Former tobacco abuse (40 pk/yr, quit 04/15/24)
-Chronic leukocytosis
-HTN
-HLD
-Prediabetes (A1C 5.8)
-Osteoarthritis
-S/P B/L hip replacement, 2020
-Acute postop atelectasis
-Acute postop pulmonary insufficiency
-Acute postop hypovolemia with subsequent hypervolemia
-Acute postop hyponatremia, 133
-Acute postop hypermagnesemia, 2.6
-Acute postop right apical pneumothorax
Discussed patient care with: Cardiology, Nursing, Respiratory Therapy, Pharmacy and Care Team
Subjective
Procedure
S/P Median sternotomy/CABG x 4 (DMITRY to LAD, GSV to D1, GSV to OM4, GSV to RPDA)/ Endoscopic harvest/prep of RLE GSV, by Dr. Estrada, 06/19/24
-
Date of Service: June 22, 2024
Pt c/o mild incisional pain, otherwise feels well
Objective Data
-
Lab Results
06/22/24 03:50
PT 16.7 Sec (11.4-14.6) H 06/19/24 15:23
INR 1.33 06/19/24 15:23
APTT 31.5 Sec (23.4-35.0) 06/19/24 15:23
Vital Signs
Vital Signs
Temp Pulse Resp BP Pulse Ox
98.7 F 76 16 125/61 97
06/22/24 04:00 06/22/24 03:33 06/22/24 04:00 06/22/24 03:33 06/22/24 04:00
CT Intake/Output/Weight
06/21/24 06/21/24 06/22/24
06:59 18:59 06:59
Intake Total 100 / 1770.3 400 / 500 100 / 500
Output Total 360 / 640 3310 / 3780 470 / 3780
Balance -260 / 1130.3 -2910 / -3280 -370 / -3280
SaO2: 97 (2L)
Physical Exam
-
General: Awake, Oriented and AOx3
Cardiovascular: Regular rate & rhythm, No Murmurs, No Rub and No Gallop
Respiratory: Decreased Breath Sounds (at bases, otherwise clear)
Sternum: Stable
Incision: Clean, Dry, Intact and Dressing Intact
Extremities: Other (+trace edema)
Data Reviewed
-
Lab Results: Results Reviewed
Medications: Active Meds Reviewed
Chest X-Ray: Report Reviewed and Image Reviewed
ECG: Report Reviewed and Image Reviewed
[2024-06-22 04:32] LABS: Blood Urea Nitrogen 28 mg/dl (9-20); Calcium 8.3 mg/dl (8.4-10.2); Carbon Dioxide 30 mmol/L (22-30); Chloride 98 mmol/L (98-107); Estimated Creatinine Clearance 108 ml/min; Glucose 123 mg/dl (70-99); Magnesium 2.2 mg/dl (1.6-2.3); Sodium 137 mmol/L (135-145); eGFR > 60.00
[2024-06-22] MEDS: TYLENOL 1000 MG PO ×3 (06:30→21:58)
[2024-06-22] MEDS: ROXICODONE 5 MG PO ×3 (07:56→20:10)
[2024-06-22] MEDS: SENOKOT-S 1 TABLET PO ×2 (07:56→20:10)
[2024-06-22] MEDS: PROTONIX 40 MG PO (07:56)
[2024-06-22] MEDS: KCL 20 MEQ PO ×2 (07:57→20:09)
[2024-06-22] MEDS: MUCINEX 600 MG PO ×2 (07:57→20:09)
[2024-06-22] MEDS: MAGNESIUM OXIDE 500 MG PO ×2 (07:57→20:09)
[2024-06-22] MEDS: LOW STRENGTH ASPIRIN 81 MG PO (07:57)
[2024-06-22] MEDS: NEURONTIN 100 MG PO ×3 (07:57→21:58)
[2024-06-22] MEDS: PACERONE 200 MG PO ×3 (07:57→21:58)
[2024-06-22] MEDS: PLAVIX 75 MG PO (07:57)
[2024-06-22] MEDS: VITAMIN C 500 MG PO (07:57)
[2024-06-22] MEDS: COREG 6.25 MG PO ×2 (07:57→20:08)
[2024-06-22] MEDS: LASIX 40 MG IV ×2 (07:57→17:13)
[2024-06-22] MEDS: BACTROBAN 2% OINTMENT 1 APPLIC NASAL ×2 (07:58→20:08)
[2024-06-22] MEDS: LIDOCAINE 4% PATCH 1 PATCH TOPICAL (07:58)
--- NOTE | 2024-06-22 08:49 | PTCARENOTE ---
assumed care of pt from previous shift RN, sinus rhythm on tele, VSS. + peripheral pulses, +2 edema to bilateral lower extremities. Lungs diminished,
+ MCDOWELL, coughing and deep breathing encouraged. +bs, tolerating PO intake, voids spontaneously. Post op sites stable. Pleural CTs w intermittent air leak, minimal drainage. PIV flushes easily. Plan of care encouraged and questions encouraged.
[2024-06-22] MEDS: CALCIUM GLUCONATE 100 IV (09:32)
--- NOTE | 2024-06-22 10:18 | W.PN.CARDCBS ---
Addendum entered and electronically signed by Hima Simon MD 06/22/24 12:06:
I saw and examined the patient.
The DENTAL THERAPIST or PA's note was reviewed and I agree with the note.
Comment: General: Well developed, well nourished in NAD.
Neck: Supple, no JVD, HJR, carotids +2 B/L, no bruits bilaterally.
Heart: Non displaced PMI, RRR, no murmurs, No S3, S4, no rubs.
Lungs: Scattered rhonchi
Sternal dressings noted
Extremities: No clubbing, cyanosis or edema bilaterally.
Neuro: Grossly nonfocal, awake, alert and oriented x3.
Stable cardiology status. Remains in sinus rhythm. Continue IV Lasix as weight up 7 pounds since admission
Original Note:
Today's Communication / Plan
-
Agree w/ IV lasix
Continue post op care
Impression / Plan
-
Primary Fraud Manager: CECIL Vizcarra
Impression:
Multivessel CAD
s/p CABG x 4 (DMITRY-LAD, GSV-D1, GSV-OM4, GSV-RPDA) 06/19/2024
Ischemic cardiomyopathy
Recent admission at w/ acute HF/flash pulm edema 04/10/2024
COPD
HTN
HLD
Tobacco use
FH of CAD
Suspected PNA/COPD exacerbation 04/10/2024
Cardiac catheterization 04/16/2024: Left main: Short and unobstructed. LAD: D1 with long 80% mid stenosis. Mid LAD beyond D1 with 70% eccentric stenosis and long 70% mid to distal LAD stenosis. Circumflex: Mid circumflex with 40 to 50% stenosis.
OM 2 occluded at origin. OM 3 small. OM 4 with 60 to 70% proximal stenosis. RCA: 60% proximal stenosis, mid RCA with 60 to 70% stenosis, distal RCA somewhat ectatic supplying moderate caliber PDA and PL branch.
ECHO 04/11/24: EF 30-35%, global hypokinesis, mild cLVH, mild-moderate MR, mild-moderate AI, small pericardial effusion w/o evidence of hemodynamic compromise
Plan:
-s/p CABG x4 (DMITRY-LAD, GSV-D1, GSV-OM4, GSV-RPDA) 06/19/2024. POD #3.
-Doing well. No chest pain or SOB. Ambulating without difficulty.
-Remains in SR on review of telemetry. Continue amiodarone.
-HR and BP stable. Back on home coreg 6.25mg BID.
-Continue aspirin, plavix.
-Diuresing with IV lasix. Weight up 7lbs from admission weight to 272 lbs 06/22.
-Creat stable at 0.9.
-Continue rosuvastatin 40mg daily
-Continue post op care
Outpt cardiac meds:
Carvedilol 6.25 mg twice daily
Rosuvastatin 40 mg a day
Furosemide 40 mg daily
Losartan 12.5 mg daily
Potassium 20 meq daily
Progress Note - Fraud Manager
Subjective
Date of Service: June 22, 2024
No chest pain or SOB. Feeling well.
Objective
Labs:
06/22/24 03:50
06/22/24 03:50
Labs
Hgb 13.8 g/dL (13.0-18.0) 06/22/24 03:50
Hct 41.3 % (39.0-52.0) 06/22/24 03:50
Plt Count 153 10^3/uL (130-400) 06/22/24 03:50
PT 16.7 Sec (11.4-14.6) H 06/19/24 15:23
INR 1.33 06/19/24 15:23
APTT 31.5 Sec (23.4-35.0) 06/19/24 15:23
Sodium 137 mmol/L (135-145) 06/22/24 03:50
Potassium 4.0 mmol/L (3.5-5.1) 06/22/24 03:50
BUN 28 mg/dl (9-20) H 06/22/24 03:50
Creatinine 0.9 mg/dL (0.7-1.3) 06/22/24 03:50
Glucose 123 mg/dl (70-99) H 06/22/24 03:50
Vital Signs and I&O:
Vital Signs
Temp Pulse Resp BP Pulse Ox
98.8 F 77 16 109/63 96
06/22/24 07:54 06/22/24 08:00 06/22/24 07:54 06/22/24 07:54 06/22/24 09:08
Vital Signs
Temp Pulse Resp BP Pulse Ox
98.8 F 77 16 109/63 96
06/22/24 07:54 06/22/24 08:00 06/22/24 07:54 06/22/24 07:54 06/22/24 09:08
Intake & Output
06/20/24 06/21/24 06/22/24 06/23/24
06:59 06:59 06:59 06:59
Intake Total 1304.2 / 1304.2 1770.3 / 1770.3 500 / 500 50 / 50
Output Total 1570 / 1570 640 / 640 3780 / 3780
Balance -265.8 / -265.8 1130.3 / 1130.3 -3280 / -3280 50 / 50
Physical Exam
Physical Exam
GEN: No distress, awake, alert, oriented x3
HEENT: supple, anicteric, mmm
LUNGS: scattered rales
CV: Reg, S1/S2, no murmur
EXT: No clubbing or cyanosis, trace b/l LE edema
NEURO: Gross non-focal
SKIN: warm, dry, no rash
--- NOTE | 2024-06-22 12:03 | PTCARENOTE ---
pt tolerated cardiac rehab, walking in halls, VSS, sinus rhythm maintained on tele. Pt denies pain. Pleural CTs maintained.
--- NOTE | 2024-06-22 12:32 | CM ---
Reviewed chart. Met with Mr. Glover to review discharge plans. He states he is feeling well. He states he ambulated in the hallway today. He ambulated 300 feet today. He states prior to admission he resides with his life partner in a one story
home with three steps to enter. He states prior to admission he was independent with ambulation and adls. He states he does not have any DME in the home. He states his life partner works outside the home three days a week on week and then one day
a week another day. We reviewed a home visit by the Transitional Care Nurse. He is agreeable to a home visit. Medical work-up in progress. The discharge plan is to return home with his life partner and a home visit by the Transitional Care Nurse
when medically stable.
[2024-06-22] MEDS: NSS IV (14:10)
--- NOTE | 2024-06-22 14:39 | PTCARENOTE ---
pt sent to IR
[2024-06-22] MEDS: XYLOCAINE 2% MDV 1 ML INJ (16:40)
--- NOTE | 2024-06-22 16:50 | W.PN.UPDATE ---
Update Note
Progress Note Update
Cardiothoracic Surgery Procedure Note:
Pre Procedure Diagnosis:
S/p coronary artery bypass grafting x 4
Postop right pneumothorax
Post Procedure Diagnosis:
Same as the above
Procedure:
Right 14 [place] Horace Pneumothorax Pigtail Chest Tube Insertion
Supervising Physician:
Dr. Murray Estrada MD
Joint Finisher/Assistants:
Eula George PA-C
Anesthesia:
15 cc local lidocaine
Specimen:
None
Indication:
Postoperative right pneumothorax despite right-sided chest tube.
Description of Procedure:
Informed consent was obtained with the patient at the bedside. Patient was prepped and draped in sterile fashion, proper timeout was performed. Using ultrasound guidance, landmarks consisting of diaphragm, lung, and right pneumothorax yet were
visualized. 15 cc of local lidocaine was drawn up via syringe. Using a small 25-gauge needle, small wheal was made in the patient's subcuticular skin. Next 16-gauge blunt needle was advanced while simultaneously aspirating until pleural fluid was
visualized. needle guidewire was advanced forward. Next using a scalpel, small incision was made in the patient's subcuticular skin. Needle was then removed. Next dilator was advanced over needle guidewire, dilator was then removed. A 14 [place]
Horace pigtail catheter chest tube was advanced over needle guidewire. Needle guidewire and obturator were then removed. Catheter was hooked up to chest tube tubing and connected to -20 cm of low wall suction. Tube was opened and positive air leak
was visualized. Chest tube was secured in place using a 2-0 silk suture. Site was then cleaned, proper dressing was applied, all sharps were disposed in the proper container.
Estimated blood loss:
1cc
Complications:
None.
Postprocedure chest x-ray obtained, size of pneumothorax has decreased, but does not yet completely resolved. The patient has no resting airleak at present. He does have a continued forced expiratory air leak with cough. Saturations and
hemodynamics are stable.
CPT Code: 13101
[2024-06-22] MEDS: CRESTOR 40 MG PO (17:13)
--- NOTE | 2024-06-22 17:16 | PTCARENOTE ---
pt returned from IR, CT unsucessfully placed in IR. CT placed at bedside by Dr. Estrada. Post procedure CXR completed.
[2024-06-22 19:06] LABS: Hepatitis C Antibody Negative (Negative)
--- NOTE | 2024-06-22 20:30 | PTCARENOTE ---
Patient received OOB in chair watching videos on computer. Patient A+A+Ox3. No neurological deficits noted. No c/o headache, dizziness or lightheadedness. Room air. SpO2 93%. Three chest tubes - Right and Left Pleural and Right Anterior -
Dressings intact - Minimal drainage - No air leak noted. Sinus Rhythm. Occasional PAC. Heart rate 80's. No c/o chest pain, pressure or discomfort. Normoactive bowel sounds. Voiding without difficulty - Clear yellow urine. Sternal dressing
intact. Right groin dressing - Ecchymosis. Right knee incision - Surgical adhesive - Open to air. Positive, palpable pulses. Edema. Patient with no c/o back or flank pain. Assessment as documented.
[2024-06-22] MEDS: DILAUDID 0.25 MG IV (21:59)
--- NOTE | 2024-06-22 22:30 | PTCARENOTE ---
Patient assisted to bed with assist x1. Steady gait. 2L O2 HS. Assessment as documented.
[2024-06-23] VITALS (9 sets, daily range): BP systolic 107–162; BP diastolic 55–92; PULSE 82; O2SAT 92; BMI 39.0
--- NOTE | 2024-06-23 00:30 | PTCARENOTE ---
Patient sleeping without difficulty. Assessment/Interventions as documented.
[2024-06-23 03:49] LABS: Hematocrit 34.8 % (39.0-52.0); Hemoglobin 11.7 g/dL (13.0-18.0); Mean Corp Hgb Conc. 33.6 g/dL (33.0-37.0); Mean Corpuscular Hgb 30.9 pg (27.0-31.0); Mean Corpuscular Volume 91.8 fL (80.0-94.0); Mean Platelet Volume 10.5 fL (7.4-10.4); Platelet Count 160 10^3/uL (130-400); Red Blood Cell Count 3.79 10^6/uL (4.70-6.10); Red Cell Dist. Width 13.7 % (11.5-14.5); White Blood Cell Count 12.8 10^3/uL (4.8-10.8)
--- NOTE | 2024-06-23 03:49 | W.PN.CT ---
Today's Communication / Plan
-
Plan:
-No major issues overnight. Hemodynamically and neurologically intact
-Had new right pigtail chest tube placement @ bedside by Dr. Estrada/REFUGIO Forde
-No air leak noted from chest tubes, drained 70/130. Consider d/c of L pleural and old right pleural chest tubes
-CxR this AM shows slightly improved R apical pneumothorax on my review, F/U official report
-Cont. current meds (ASA, Plavix, Crestor, Amiodarone, Coreg)
-Monitor Hyponatremia 137 -> 134. Pt admits to drinking more than previous day.. Cont. Fluid restriction (16 oz), will give Lasix today, wt up 6 lbs from preop, same as yesterday
-Wean off of O2 as tolerated
-Encourage use of IS
-OOB into chair/Ambulate
-Home in 1-2 days
Assessment / Plan
-
Assessment:
-S/P Median sternotomy/CABG x 4 (DMITRY to LAD, GSV to D1, GSV to OM4, GSV to RPDA)/ Endoscopic harvest/prep of RLE GSV, by Dr. Estrada, 06/19/24, pod#4
-Severe 3v CAD
-Severely dilated left atrium
-Moderately dilated right atrium
-Mid Asc. Aorta dilation (4.0 cm)
-Severe sessile atheroma @ distal aortic arch
-Moderate sessile atheroma @ descending aorta
-Mild-moderate AI
-Mild TR
-LVEF 50% per intraop REMI
-ICM
-Acute systolic CHF S/P intubated with VDRF
-Recent suspected PNA
-COPD
-Former tobacco abuse (40 pk/yr, quit 04/15/24)
-Chronic leukocytosis
-HTN
-HLD
-Prediabetes (A1C 5.8)
-Osteoarthritis
-S/P B/L hip replacement, 2020
-Acute postop blood loss/Anemia (stable without blood transfusion)
-Acute postop atelectasis
-Acute postop pulmonary insufficiency
-Acute postop hypovolemia with subsequent hypervolemia
-Acute postop hyponatremia, 133
-Acute postop hypermagnesemia, 2.6
-Acute postop right apical pneumothorax S/p New right pigtail chest tube placement @ bedside by Dr. Estrada/REFUGIO Forde, 06/22/24
Discussed patient care with: Cardiology, Nursing, Respiratory Therapy, Pharmacy and Care Team
Subjective
Procedure
S/P Median sternotomy/CABG x 4 (DMITRY to LAD, GSV to D1, GSV to OM4, GSV to RPDA)/ Endoscopic harvest/prep of RLE GSV, by Dr. Estrada, 06/19/24
-
Date of Service: June 23, 2024
Pt c/o mild incisional pain, otherwise feels well
Objective Data
-
Lab Results
06/23/24 03:38
PT 16.7 Sec (11.4-14.6) H 06/19/24 15:23
INR 1.33 06/19/24 15:23
APTT 31.5 Sec (23.4-35.0) 06/19/24 15:23
Vital Signs
Vital Signs
Temp Pulse Resp BP Pulse Ox
98.4 F 71 18 154/70 96
06/22/24 22:00 06/23/24 03:00 06/22/24 22:00 06/22/24 22:00 06/22/24 22:00
CT Intake/Output/Weight
06/22/24 06/22/24 06/23/24
06:59 18:59 06:59
Intake Total 100 / 500 50 / 290 240 / 290
Output Total 470 / 3780 1060 / 2810 1750 / 2810
Balance -370 / -3280 -1010 / -2520 -1510 / -2520
SaO2: 94 (RA)
Physical Exam
-
General: Awake, Oriented and AOx3
Cardiovascular: Regular rate & rhythm, No Murmurs, No Rub and No Gallop
Respiratory: Decreased Breath Sounds (at bases, otherwise clear)
Sternum: Stable
Incision: Clean, Dry, Intact and Dressing Intact
Extremities: Other (+trace edema)
Data Reviewed
-
Lab Results: Results Reviewed
Medications: Active Meds Reviewed
Chest X-Ray: Report Reviewed and Image Reviewed
ECG: Report Reviewed and Image Reviewed
[2024-06-23] MEDS: ROXICODONE 5 MG PO ×3 (03:58→22:29)
--- NOTE | 2024-06-23 04:00 | PTCARENOTE ---
Patient A+A+Ox3. No neurological deficits noted. AM lab work collected and sent. Standing scale weight 123.4 kg. Patient back to bed. Roxicodone 5mg PO for pain management. Assessment/Interventions as documented.
[2024-06-23 04:36] LABS: Blood Urea Nitrogen 24 mg/dl (9-20); Calcium 8.4 mg/dl (8.4-10.2); Carbon Dioxide 35 mmol/L (22-30); Chloride 94 mmol/L (98-107); Estimated Creatinine Clearance 108 ml/min; Glucose 115 mg/dl (70-99); Magnesium 2.1 mg/dl (1.6-2.3); Potassium 4.1 mmol/L (3.5-5.1); Sodium 134 mmol/L (135-145); eGFR > 60.00
[2024-06-23] MEDS: TYLENOL PO (06:25)
[2024-06-23] MEDS: PROTONIX 40 MG PO (08:03)
[2024-06-23] MEDS: SENOKOT-S 1 TABLET PO ×2 (08:03→20:28)
[2024-06-23] MEDS: DIAMOX 250 MG PO (08:03)
[2024-06-23] MEDS: BACTROBAN 2% OINTMENT 1 APPLIC NASAL (08:03)
[2024-06-23] MEDS: NEURONTIN 100 MG PO ×3 (08:03→22:29)
[2024-06-23] MEDS: MUCINEX 600 MG PO ×2 (08:03→20:29)
[2024-06-23] MEDS: MAGNESIUM OXIDE 500 MG PO ×2 (08:04→20:29)
[2024-06-23] MEDS: COREG 6.25 MG PO ×2 (08:04→20:28)
[2024-06-23] MEDS: VITAMIN C 500 MG PO (08:04)
[2024-06-23] MEDS: PLAVIX 75 MG PO (08:04)
[2024-06-23] MEDS: PACERONE 200 MG PO ×3 (08:04→22:29)
[2024-06-23] MEDS: KCL 20 MEQ PO ×2 (08:04→20:29)
[2024-06-23] MEDS: LOW STRENGTH ASPIRIN 81 MG PO (08:05)
[2024-06-23] MEDS: LIDOCAINE 4% PATCH TOPICAL (08:09)
--- NOTE | 2024-06-23 08:10 | PTCARENOTE ---
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 NSR via cm, SaO2 @ 96% on RA. R and L pleural chest tubes Y-connected to pleurevac, R anterior chest tube to separate pleurevac - no leaks or crepitus
noted to either. Voiding independently, spontaneously. Assisted oob to chair, breakfast ordered. Patient updated to plan of care for the day, in agreement. See work list for full assessment and interventions performed.
--- NOTE | 2024-06-23 10:41 | CM ---
Reviewed chart. Met with Adalberto Santacruz to review discharge plans. He states he feels well and maybe able to go home soon, He states he ambulated in the hallway today. Prior to admission resides with his life partner in one stroty home with three
steps to enter. Prior to admission he was independent with ambulation and adls. He does not have any DME in the home. His life partner works outside the home a couple if days a week. We reviewed a home visit by the Transitional Care Nurse. He is
agreeable to a home visit. Medical work-up in progress. The discharge plan is to return home with his life partner and a home visit by the Transitional Care Nurse when medically stable.
--- NOTE | 2024-06-23 10:55 | W.PN.CARDCBS ---
Addendum entered and electronically signed by Mark Kilgore MD 06/23/24 14:23:
I saw and examined the patient.
The Retail Loan Originator's note was reviewed and I agree with the note.
Comment:
GEN: No distress, awake, Ox3
HEENT: supple, anicteric, mmm
LUNGS: scatt rhonchi
CV: Reg, S1/S2, 1/6 syst LSB, no gallop
ABD: soft, BS+, NT/ND
EXT: No edema
NEURO: Gross non-focal
SKIN: sternotomy
Plan:
Overall doing well status post CABG. Still with small chest tube in place.
Continue aspirin and Plavix. Continue amiodarone and carvedilol. Back on losartan.
Continue Crestor.
Increase activity
Original Note:
Today's Communication / Plan
-
continue post op care
consider resuming OP cozaar
diuresis
Impression / Plan
-
Primary Blueprint Assembler: CECIL Vizcarra
Impression:
Multivessel CAD
s/p CABG x 4 (DMITRY-LAD, GSV-D1, GSV-OM4, GSV-RPDA) 06/19/2024
Ischemic cardiomyopathy
Recent admission at w/ acute HF/flash pulm edema 04/10/2024
COPD
HTN
HLD
Tobacco use
FH of CAD
Suspected PNA/COPD exacerbation 04/10/2024
Cardiac catheterization 04/16/2024: Left main: Short and unobstructed. LAD: D1 with long 80% mid stenosis. Mid LAD beyond D1 with 70% eccentric stenosis and long 70% mid to distal LAD stenosis. Circumflex: Mid circumflex with 40 to 50% stenosis.
OM 2 occluded at origin. OM 3 small. OM 4 with 60 to 70% proximal stenosis. RCA: 60% proximal stenosis, mid RCA with 60 to 70% stenosis, distal RCA somewhat ectatic supplying moderate caliber PDA and PL branch.
ECHO 04/11/24: EF 30-35%, global hypokinesis, mild cLVH, mild-moderate MR, mild-moderate AI, small pericardial effusion w/o evidence of hemodynamic compromise
Plan:
-s/p CABG x4 (DMITRY-LAD, GSV-D1, GSV-OM4, GSV-RPDA) 06/19/2024.
-continues to do well. ambulating without difficulty
-remains with chest tube x1 due to R apical PTX, mgmt per CT surgery
-BPs remain elevated overall. back on OP coreg 6.25mg BID. d/w CT surgery, consider resuming OP cozaar
-in SR upon review of tele
-Continue aspirin, plavix. hgb 11.7 on 06/23
-continue diuresis with IV lasix, weight remains up postop. Cr stable at 0.9.
-Continue rosuvastatin 40mg daily
-Continue post op care, IS
Outpt cardiac meds:
Carvedilol 6.25 mg twice daily
Rosuvastatin 40 mg a day
Furosemide 40 mg daily
Losartan 12.5 mg daily
Potassium 20 meq daily
Progress Note - Blueprint Assembler
Subjective
Date of Service: June 23, 2024
patient reports feeling well, some sternal pain
Objective
Labs:
06/23/24 03:38
06/23/24 03:38
Labs
Hgb 11.7 g/dL (13.0-18.0) L 06/23/24 03:38
Hct 34.8 % (39.0-52.0) L 06/23/24 03:38
Plt Count 160 10^3/uL (130-400) 06/23/24 03:38
PT 16.7 Sec (11.4-14.6) H 06/19/24 15:23
INR 1.33 06/19/24 15:23
APTT 31.5 Sec (23.4-35.0) 06/19/24 15:23
Sodium 134 mmol/L (135-145) L 06/23/24 03:38
Potassium 4.1 mmol/L (3.5-5.1) 06/23/24 03:38
BUN 24 mg/dl (9-20) H 06/23/24 03:38
Creatinine 0.9 mg/dL (0.7-1.3) 06/23/24 03:38
Glucose 115 mg/dl (70-99) H 06/23/24 03:38
Vital Signs and I&O:
Vital Signs
Temp Pulse Resp BP Pulse Ox
98.2 F 71 17 161/92 90
06/23/24 07:43 06/23/24 10:00 06/23/24 07:43 06/23/24 09:27 06/23/24 09:27
Vital Signs
Temp Pulse Resp BP Pulse Ox
98.2 F 71 17 161/92 90
06/23/24 07:43 06/23/24 10:00 06/23/24 07:43 06/23/24 09:27 06/23/24 09:27
Intake & Output
06/21/24 06/22/24 06/23/24 06/24/24
07:59 07:59 07:59 07:59
Intake Total 1770.3 / 1770.3 500 / 550 530 / 530 250 / 250
Output Total 640 / 915 3780 / 3780 2830 / 2830 200 / 200
Balance 1130.3 / 855.3 -3280 / -3230 -2300 / -2300 50 / 50
Physical Exam
Physical Exam
GEN: No distress, awake, alert, oriented x3. sitting in chair
HEENT: supple, anicteric, mmm, eomi
LUNGS: CTA B/L, no wheezes/rales
CV: Reg, S1/S2, no murmur
ABD: soft, BS+, NT/ND
EXT: No cyanosis, clubbing. 2+ edema of B/L LE
NEURO: Gross non-focal
SKIN: Warm, pink, dry. No rash. Sternotomy dressing c/d/i. CT in place
[2024-06-23] MEDS: COZAAR 12.5 MG PO (11:47)
--- NOTE | 2024-06-23 11:49 | PTCARENOTE ---
VS obtained, assessment stable. Patient remains oob in chair, visitor at bedside. Ordering lunch. States pain controlled.
[2024-06-23] MEDS: NSS IV (12:54)
[2024-06-23] MEDS: TYLENOL 1000 MG PO ×2 (13:37→22:28)
[2024-06-23] MEDS: CRESTOR 40 MG PO (17:39)
--- NOTE | 2024-06-23 19:57 | PTCARENOTE ---
received pt from previous rn. Pt AAOx4, VSS, NSR per tele monitor HR 60s. +pulses, +1 b/l LE edema, pox 95% on RA, lungs diminished, Right apical CT to -20cm wall suction w/ minimal output no air leak/tidaling/crepitus, +bs, voids clear yellow
urine, all surgical incision intact, CT dressings c/d/i, piv flushes, plan of care discussed questions encouraged.
--- NOTE | 2024-06-23 22:37 | PTCARENOTE ---
pt resting comfortably in bed. VSS, NSR per tele monitor, assessment remains unchanged.
[2024-06-24] VITALS (8 sets, daily range): BP systolic 67–120; BP diastolic 50–60; BMI 38.9
--- NOTE | 2024-06-24 03:00 | PTCARENOTE ---
VSS, NSR per tele monitor , assessment remains unchanged
[2024-06-24 04:38] LABS: Blood Urea Nitrogen 23 mg/dl (9-20); Calcium 8.7 mg/dl (8.4-10.2); Carbon Dioxide 24 mmol/L (22-30); Chloride 99 mmol/L (98-107); Estimated Creatinine Clearance 97 ml/min; Glucose 159 mg/dl (70-99); Magnesium 2.3 mg/dl (1.6-2.3); Sodium 133 mmol/L (135-145); eGFR > 60.00
[2024-06-24] MEDS: MELATONIN 5 MG PO (04:53)
--- NOTE | 2024-06-24 05:14 | W.PN.CT ---
Addendum entered and electronically signed by Murray Estrada MD 06/24/24 06:45:
CARDIAC SURGERY ATTENDING:
Mr. Hickman is doing quite well overall. However, this morning chest x-ray demonstrated a increase in his right apical pneumothorax. I investigated his pigtail chest tube which had previously resulted in significant decrease of his right apical
pneumothorax (down to 5 to 10%). This pigtail catheter was no longer tidaling and I could no longer elicit a forced expiratory air leak. It is my impression that this catheter is either clogged/kinked or partially displaced. To any extent, it is
clearly not providing any significant benefit at present. I remove the catheter at bedside without issue this morning. Occlusive dressing applied. Will obtain chest x-ray in 2 hours to assess stability of right apical pneumothorax. If this
enlarges or worsens, will reach out again to my interventional radiology colleagues for a image guided placement of a pigtail catheter to the apex of the right lung.
Otherwise continue with standard postoperative management.
Thank you.
Murray Estrada MD
[phone]
Original Note:
Today's Communication / Plan
-
Plan:
-No major issues overnight. Hemodynamically and neurologically intact
-Had new right pigtail chest tube placement @ bedside by Dr. Estrada/REFUGIO Forde on 06/22/24
-Chest tube to -20 cmH20 wall suction, and has air leak only with cough, drained 10/24
-CxR this AM shows slightly increased R apical pneumothorax on my review, F/U official report
-May need to exchange chest tube for a more apical one vs increase suction
-Cont. current meds (ASA, Plavix, Crestor, Amiodarone, Coreg)
-Monitor Hyponatremia 134-> 133. Cont. Fluid restriction (16 oz), will give Lasix today (got Diamox yesterday), wt up 5 lbs from preop
-Encourage use of IS
-OOB into chair/Ambulate
-Home in 1-2 days
Assessment / Plan
-
Assessment:
-S/P Median sternotomy/CABG x 4 (DMITRY to LAD, GSV to D1, GSV to OM4, GSV to RPDA)/ Endoscopic harvest/prep of RLE GSV, by Dr. Estrada, 06/19/24, pod#5
-Severe 3v CAD
-Severely dilated left atrium
-Moderately dilated right atrium
-Mid Asc. Aorta dilation (4.0 cm)
-Severe sessile atheroma @ distal aortic arch
-Moderate sessile atheroma @ descending aorta
-Mild-moderate AI
-Mild TR
-LVEF 50% per intraop REMI
-ICM
-Acute systolic CHF S/P intubated with VDRF
-Recent suspected PNA
-COPD
-Former tobacco abuse (40 pk/yr, quit 04/15/24)
-Chronic leukocytosis
-HTN
-HLD
-Prediabetes (A1C 5.8)
-Osteoarthritis
-S/P B/L hip replacement, 2020
-Acute postop blood loss/Anemia (stable without blood transfusion)
-Acute postop atelectasis
-Acute postop pulmonary insufficiency
-Acute postop hypovolemia with subsequent hypervolemia
-Acute postop hyponatremia, 133
-Acute postop hypermagnesemia, 2.6
-Acute postop right apical pneumothorax S/p New right pigtail chest tube placement @ bedside by Dr. Estrada/REFUGIO Forde, 06/22/24
Discussed patient care with: Cardiology, Nursing, Respiratory Therapy, Pharmacy and Care Team
Subjective
Procedure
S/P Median sternotomy/CABG x 4 (DMITRY to LAD, GSV to D1, GSV to OM4, GSV to RPDA)/ Endoscopic harvest/prep of RLE GSV, by Dr. Estrada, 06/19/24
-
Date of Service: June 24, 2024
Pt c/o mild incisional pain, otherwise feels well
Objective Data
-
Lab Results
06/23/24 03:38
06/24/24 03:47
PT 16.7 Sec (11.4-14.6) H 06/19/24 15:23
INR 1.33 06/19/24 15:23
APTT 31.5 Sec (23.4-35.0) 06/19/24 15:23
Vital Signs
Vital Signs
Temp Pulse Resp BP Pulse Ox
97.5 F 70 18 125/56 94
06/23/24 22:33 06/23/24 22:29 06/23/24 22:33 06/23/24 22:29 06/23/24 22:33
CT Intake/Output/Weight
06/23/24 06/23/24 06/24/24
06:59 18:59 06:59
Intake Total 480 / 530 500 / 500
Output Total 1760 / 2820 1190 / 1495 305 / 1495
Balance -1280 / -2290 -690 / -995 -305 / -995
SaO2: 94 (RA)
Physical Exam
-
General: Awake, Oriented and AOx3
Cardiovascular: Regular rate & rhythm, No Murmurs, No Rub and No Gallop
Respiratory: Decreased Breath Sounds (@ right)
Sternum: Stable
Incision: Clean, Dry, Intact and Dressing Intact
Extremities: Other (+trace edema)
Data Reviewed
-
Lab Results: Results Reviewed
Medications: Active Meds Reviewed
Chest X-Ray: Report Reviewed and Image Reviewed
ECG: Report Reviewed and Image Reviewed
[2024-06-24] MEDS: TYLENOL PO ×2 (07:05→13:52)
--- NOTE | 2024-06-24 07:46 | PTCARENOTE ---
Assumed care of patient from extruder tender RN. AAO x 3 sitting up in the chair. States hes drowsy after taking a melatonin at 0400 but otherwise offers no complaints. SR on monitor. Room air 95%. Denies cough or sob. Abdomen soft and non tender.
Voiding w/o issue. Trace pedal edema appreciated. Pulses palpable. Plan for day discussed.
[2024-06-24] MEDS: LOW STRENGTH ASPIRIN 81 MG PO (08:26)
[2024-06-24] MEDS: MUCINEX 600 MG PO ×2 (08:26→20:44)
[2024-06-24] MEDS: KCL 20 MEQ PO ×2 (08:26→21:13)
[2024-06-24] MEDS: NEURONTIN 100 MG PO ×3 (08:26→21:13)
[2024-06-24] MEDS: COZAAR 12.5 MG PO (08:26)
[2024-06-24] MEDS: LASIX 40 MG IV ×2 (08:26→16:28)
[2024-06-24] MEDS: PACERONE 200 MG PO ×3 (08:26→21:13)
[2024-06-24] MEDS: PLAVIX 75 MG PO (08:27)
[2024-06-24] MEDS: COREG 6.25 MG PO ×2 (08:27→20:44)
[2024-06-24] MEDS: SENOKOT-S 1 TABLET PO (08:27)
[2024-06-24] MEDS: VITAMIN C 500 MG PO (08:27)
[2024-06-24] MEDS: MAGNESIUM OXIDE 500 MG PO ×2 (08:27→20:44)
[2024-06-24] MEDS: PROTONIX 40 MG PO (08:27)
[2024-06-24] MEDS: LIDOCAINE 4% PATCH TOPICAL (08:28)
--- NOTE | 2024-06-24 09:23 | PTCARENOTE ---
Pt made NPO for future CT placement. Denies S/s. pulse ox 97%. Will monitor closely
--- NOTE | 2024-06-24 12:00 | PTCARENOTE ---
In chair visiting with friend. VSS. Remains NPO awaiting IR for chest tube. Voiding in bathroom. Denies complaint. Assessment unchanged from prior
--- NOTE | 2024-06-24 13:23 | W.PN.CARDCBS ---
Addendum entered and electronically signed by Nathaniel Dalal MD 06/24/24 13:47:
patient seen and examined
agree with REFUGIO Palafox's notes and assessment
agree with REFUGIO Palafox's plan
exam:
diminished right lung
heent ncat
jvp 6
cor regular no m
lungs as above otherwise clear
abd soft nt nd
no ext edema
aao x3
non focal neurologically
Primary Pathology Secretary: CECIL Vizcarra
Impression:
Multivessel CAD
s/p CABG x 4 (DMITRY-LAD, GSV-D1, GSV-OM4, GSV-RPDA) 06/19/2024Ischemic cardiomyopathy
Recent admission at w/ acute HF/flash pulm edema 04/10/2024
COPD
HTN
HLD
Tobacco use
FH of CAD
Suspected PNA/COPD exacerbation 04/10/2024
Cardiac catheterization 04/16/2024: Left main: Short and unobstructed. LAD: D1 with long 80% mid stenosis. Mid LAD beyond D1 with 70% eccentric stenosis and long 70% mid to distal LAD stenosis. Circumflex: Mid circumflex with 40 to 50% stenosis.
OM 2 occluded at origin. OM 3 small. OM 4 with 60 to 70% proximal stenosis. RCA: 60% proximal stenosis, mid RCA with 60 to 70% stenosis, distal RCA somewhat ectatic supplying moderate caliber PDA and PL branch.
ECHO 04/11/24: EF 30-35%, global hypokinesis, mild cLVH, mild-moderate MR, mild-moderate AI, small pericardial effusion w/o evidence of hemodynamic compromise
Plan:
-s/p CABG x4 (DMITRY-LAD, GSV-D1, GSV-OM4, GSV-RPDA) 06/19/2024.
-Right apical pneumothorax with progression by chest x-ray this morning. For adjustment by interventional radiology today
-Blood pressures overall improved today after outpatient Cozaar resumed 06/23. Continue outpatient Coreg 6.25 mg twice daily
-Continue diuresis. Cr stable at 1.0
-Continue aspirin, Plavix, crestor
-Remains in sinus rhythm on review of telemetry
-Continue post op care, IS
-d/w nursing
-otherwise looks quite good should be nearing DC after improvement/re-expansion of the right PTX
Original Note:
Today's Communication / Plan
-
Right chest tube management per IR/primary service
Continue postoperative care
Diuresis
Blood pressures improved
Impression / Plan
-
Primary Pathology Secretary: CECIL Vizcarra
Impression:
Multivessel CAD
s/p CABG x 4 (DMITRY-LAD, GSV-D1, GSV-OM4, GSV-RPDA) 06/19/2024
Ischemic cardiomyopathy
Recent admission at w/ acute HF/flash pulm edema 04/10/2024
COPD
HTN
HLD
Tobacco use
FH of CAD
Suspected PNA/COPD exacerbation 04/10/2024
Cardiac catheterization 04/16/2024: Left main: Short and unobstructed. LAD: D1 with long 80% mid stenosis. Mid LAD beyond D1 with 70% eccentric stenosis and long 70% mid to distal LAD stenosis. Circumflex: Mid circumflex with 40 to 50% stenosis.
OM 2 occluded at origin. OM 3 small. OM 4 with 60 to 70% proximal stenosis. RCA: 60% proximal stenosis, mid RCA with 60 to 70% stenosis, distal RCA somewhat ectatic supplying moderate caliber PDA and PL branch.
ECHO 04/11/24: EF 30-35%, global hypokinesis, mild cLVH, mild-moderate MR, mild-moderate AI, small pericardial effusion w/o evidence of hemodynamic compromise
Plan:
-s/p CABG x4 (DMITRY-LAD, GSV-D1, GSV-OM4, GSV-RPDA) 06/19/2024.
-Right apical pneumothorax with progression by chest x-ray this morning. For adjustment by interventional radiology today
-Blood pressures overall improved today after outpatient Cozaar resumed 06/23. Continue outpatient Coreg 6.25 mg twice daily
-Continue diuresis. Cr stable at 1.0
-Continue aspirin, Plavix, crestor
-Remains in sinus rhythm on review of telemetry
-Continue post op care, IS
-d/w nursing
Outpt cardiac meds:
Carvedilol 6.25 mg twice daily
Rosuvastatin 40 mg a day
Furosemide 40 mg daily
Losartan 12.5 mg daily
Potassium 20 meq daily
Progress Note - Pathology Secretary
Subjective
Date of Service: June 24, 2024
With mild incisional pain. For adjustment of right chest tube in IR today
Objective
Labs:
06/23/24 03:38
06/24/24 03:47
Labs
Hgb 11.7 g/dL (13.0-18.0) L 06/23/24 03:38
Hct 34.8 % (39.0-52.0) L 06/23/24 03:38
Plt Count 160 10^3/uL (130-400) 06/23/24 03:38
PT 16.7 Sec (11.4-14.6) H 06/19/24 15:23
INR 1.33 06/19/24 15:23
APTT 31.5 Sec (23.4-35.0) 06/19/24 15:23
Sodium 133 mmol/L (135-145) L 06/24/24 03:47
Potassium 4.0 mmol/L (3.5-5.1) 06/24/24 03:47
BUN 23 mg/dl (9-20) H 06/24/24 03:47
Creatinine 1.0 mg/dL (0.7-1.3) 06/24/24 03:47
Glucose 159 mg/dl (70-99) H 06/24/24 03:47
Vital Signs and I&O:
Vital Signs
Temp Pulse Resp BP Pulse Ox
97.6 F 67 19 119/60 96
06/24/24 13:10 06/24/24 13:10 06/24/24 13:10 06/24/24 13:10 06/24/24 13:10
Vital Signs
Temp Pulse Resp BP Pulse Ox
97.6 F 67 19 119/60 96
06/24/24 13:10 06/24/24 13:10 06/24/24 13:10 06/24/24 13:10 06/24/24 13:10
Intake & Output
06/22/24 06/23/24 06/24/24 06/25/24
07:59 07:59 07:59 07:59
Intake Total 500 / 550 530 / 530 500 / 500 360 / 360
Output Total 3780 / 3780 2830 / 2830 1735 / 1735
Balance -3280 / -3230 -2300 / -2300 -1235 / -1235 360 / 360
[2024-06-24] MEDS: NSS IV (13:52)
--- NOTE | 2024-06-24 13:52 | PTCARENOTE ---
In chair visiting with friend. VSS. Remains NPO awaiting IR for chest tube. Voiding in bathroom. Denies complaint. Assessment unchanged from prior
--- NOTE | 2024-06-24 16:02 | CM ---
Reviewed chart. Mr. Glover is of the floor at . Gave him the list of PCP connected to [facility]. Prior to admission he resides with his significant other in a one story home with three steps to enter. Prior to admission he was
independent with ambulation and adls. He does not have any DME in the home. His significant other does work part-time . Medical work-up in progress. The discharge plan is to return home with his significant other and a home visit by the
Transitional Care Nurse when medically stable.
--- NOTE | 2024-06-24 16:09 | PTCARENOTE ---
Received pt back from IR. Rt lateral chest tube intact placed to - 20 cm suction. No air leak or crepitus noted. Room air 96%. No pain at present. Dressing c,d,i.
[2024-06-24] MEDS: ROXICODONE 5 MG PO ×2 (16:28→20:40)
[2024-06-24] MEDS: CRESTOR 40 MG PO (16:29)
--- NOTE | 2024-06-24 20:00 | PTCARENOTE ---
Assumed care of patient at 1900. Patient found OOB in chair at time of assessment. Patient is AOx4, follows commands appropriately, moves all extremities. Lung sounds are diminished throughout saO2 97% on RA, patient has CTx1 R lateral chest to wall
suction. Heart sounds are audible, patient is SR on the monitor, they have normal palpable pulses trace anasarca is present. Patient has normal active BS, reports BM today and is voiding clear yellow in urinal. There is a sternal incision with
aquacell dressing that is CDI, R upper chest 4x4 dressing from CT wound that is CDI, R lateral ABD dressing over CT wound that is CDI, 4x incision from CT wound inferior to sternal incision that approximated with sutures [employer], a R groin puncture that
is approx with surg adhesive [employer] ecchymotic and RLE incision approx with surg adhesive FARIHA ecchymotic. There is a 20G R AC PIV available for intermittent infusion.
[2024-06-24] MEDS: SENOKOT-S PO (20:44)
[2024-06-24] MEDS: TYLENOL 1000 MG PO (21:13)
[2024-06-25] VITALS (9 sets, daily range): BP systolic 93–127; BP diastolic 50–57; PULSE 74; O2SAT 93–95; BMI 38.8
--- NOTE | 2024-06-25 00:05 | PTCARENOTE ---
Assumed care of pt from 7-11 RN. Pt seated in chair comfortably watching a movie. R lateral CT site CDI w/o crepitus/tidaling or noted air leak. sternal dressing CDI, OLD R anterior CT site CDI, OLD cordis site CDI as well. R leg incisions FARIHA and
approximated with noted ecchymosis. Plan of care discussed. Assessment completed as documented. Pt without complaints at this time.
[2024-06-25] MEDS: ROXICODONE 5 MG PO ×3 (00:26→08:47)
[2024-06-25] MEDS: DILAUDID 0.25 MG IV (01:40)
[2024-06-25 04:06] LABS: Blood Urea Nitrogen 25 mg/dl (9-20); Calcium 8.5 mg/dl (8.4-10.2); Carbon Dioxide 27 mmol/L (22-30); Chloride 97 mmol/L (98-107); Estimated Creatinine Clearance 88 ml/min; Glucose 103 mg/dl (70-99); Magnesium 2.3 mg/dl (1.6-2.3); Potassium 4.2 mmol/L (3.5-5.1); Sodium 133 mmol/L (135-145); eGFR > 60.00
[2024-06-25] MEDS: TYLENOL 1000 MG PO ×3 (05:28→21:06)
--- NOTE | 2024-06-25 07:19 | PTCARENOTE ---
VS captured for previous shift via [employer] monitor.
--- NOTE | 2024-06-25 07:45 | PTCARENOTE ---
Patient received from second shift supervisor resting in bed, AAO X 3, states pain controlled at this time. NSR via cm, SaO2 @ 94% on RA. All procedural sites stable. R lateral chest tube to -20cm suction, no air leak or crepitus noted on -20cm suction. Patient
assisted oob to chair for breakfast, updated to plan of care for the day, in agreement. See work list for full assessment and interventions performed.
--- NOTE | 2024-06-25 07:52 | W.PN.CT ---
Today's Communication / Plan
-
-pod #6
-no issues overnight
-R ptx appears improved
-R CT on -20 sxn, no air leak- maintain on sxn
-continue diuresis with bid Lasix
-encourage IS
Assessment / Plan
-
Assessment:
-S/P Median sternotomy/CABG x 4 (DMITRY to LAD, GSV to D1, GSV to OM4, GSV to RPDA)/ Endoscopic harvest/prep of RLE GSV, by Dr. Estrada, 06/19/24, pod#6
-Severe 3v CAD
-Severely dilated left atrium
-Moderately dilated right atrium
-Mid Asc. Aorta dilation (4.0 cm)
-Severe sessile atheroma @ distal aortic arch
-Moderate sessile atheroma @ descending aorta
-Mild-moderate AI
-Mild TR
-LVEF 50% per intraop REMI
-ICM
-Acute systolic CHF S/P intubated with VDRF
-Recent suspected PNA
-COPD
-Former tobacco abuse (40 pk/yr, quit 04/15/24)
-Chronic leukocytosis
-HTN
-HLD
-Prediabetes (A1C 5.8)
-Osteoarthritis
-S/P B/L hip replacement, 2020
-Acute postop blood loss/Anemia (stable without blood transfusion)
-Acute postop atelectasis
-Acute postop pulmonary insufficiency
-Acute postop hypovolemia with subsequent hypervolemia
-Acute postop hyponatremia, 133
-Acute postop hypermagnesemia, 2.6
-Acute postop right apical pneumothorax S/p New right pigtail chest tube placement @ bedside by Dr. Estrada/REFUGIO Fodre, 06/22/24
Discussed patient care with: Nursing and Care Team
Subjective
Procedure
S/P Median sternotomy/CABG x 4 (DMITRY to LAD, GSV to D1, GSV to OM4, GSV to RPDA)/ Endoscopic harvest/prep of RLE GSV, by Dr. Estrada, 06/19/24
-
Date of Service: June 25, 2024
Objective Data
-
Lab Results
06/23/24 03:38
06/25/24 03:16
PT 16.7 Sec (11.4-14.6) H 06/19/24 15:23
INR 1.33 06/19/24 15:23
APTT 31.5 Sec (23.4-35.0) 06/19/24 15:23
Vital Signs
Vital Signs
Temp Pulse Resp BP Pulse Ox
97.7 F 65 17 101/50 94
06/25/24 07:35 06/25/24 07:35 06/25/24 07:35 06/25/24 03:08 06/25/24 07:43
CT Intake/Output/Weight
06/24/24 06/25/24 06/25/24
18:59 06:59 18:59
Intake Total 420 / 790 370 / 790
Output Total 1150 / 2280 530 / 2280 600 / 600
Balance -730 / -1490 -160 / -1490 -600 / -600
SaO2: 94
Physical Exam
-
General: Awake and AOx3
Cardiovascular: Regular rate & rhythm, No Murmurs and No Rub
Respiratory: Clear
Incision: Clean, Dry and Intact
Extremities: Edema +2
Data Reviewed
-
Lab Results: Results Reviewed
Medications: Active Meds Reviewed
Chest X-Ray: Report Reviewed and Image Reviewed
ECG: Report Reviewed and Image Reviewed
[2024-06-25] MEDS: LIDOCAINE 4% PATCH TOPICAL ×2 (08:20→09:59)
[2024-06-25] MEDS: MAGNESIUM OXIDE 500 MG PO ×2 (08:38→19:24)
[2024-06-25] MEDS: VITAMIN C 500 MG PO (08:38)
[2024-06-25] MEDS: PLAVIX 75 MG PO (08:38)
[2024-06-25] MEDS: MUCINEX 600 MG PO ×2 (08:38→19:27)
[2024-06-25] MEDS: PROTONIX 40 MG PO (08:38)
[2024-06-25] MEDS: COZAAR 12.5 MG PO (08:38)
[2024-06-25] MEDS: NEURONTIN 100 MG PO (08:38)
[2024-06-25] MEDS: PACERONE 200 MG PO ×3 (08:40→21:06)
[2024-06-25] MEDS: COREG 6.25 MG PO ×2 (08:40→19:26)
[2024-06-25] MEDS: LASIX 40 MG IV ×2 (08:41→16:13)
[2024-06-25] MEDS: SENOKOT-S 1 TABLET PO ×2 (08:41→19:24)
[2024-06-25] MEDS: LOW STRENGTH ASPIRIN 81 MG PO (08:41)
[2024-06-25] MEDS: KCL 20 MEQ PO ×2 (08:41→19:25)
[2024-06-25] MEDS: NSS IV (09:40)
--- NOTE | 2024-06-25 09:58 | W.PN.CARDCBS ---
Addendum entered and electronically signed by Tony Vizcarra MD 06/25/24 15:55:
63-year-old man with CABG June 19, history of ischemic cardiomyopathy and acute HFrEF March 2024 with a EF 30-35%, postoperative right pneumothorax
PMH: COPD, hypertension, hyperlipidemia
107/55, pulse 65, afebrile, weight is 122.7 kg, no distress sitting comfortably in chair, head neck exam unremarkable, lungs are clear, regular rate and rhythm, incision intact, not much edema
REMI June 2024: EF 55%, severe LVH, dilated atria, mild to moderate AI and MR
BUN/creatinine 25 and 1.1 chest x-ray small apical pneumo persists but improved, right hemidiaphragm elevated, cardiomegaly
Impression: See below
Plan:
Overall doing well. He remains on IV furosemide, likely convert to oral shortly
On amiodarone, no A-fib on recent telemetry
Hopefully chest tube to be discontinued shortly and then discharge.
Original Note:
Today's Communication / Plan
-
Chest tube mgmt per surgery
continue diuresis
post op care
Impression / Plan
-
Primary Waiter/Waitress Economy Class: CECIL Vizcarra
Impression:
Multivessel CAD
s/p CABG x 4 (DMITRY-LAD, GSV-D1, GSV-OM4, GSV-RPDA) 06/19/2024
Ischemic cardiomyopathy
Recent admission at w/ acute HF/flash pulm edema 04/10/2024
COPD
HTN
HLD
Tobacco use
FH of CAD
Suspected PNA/COPD exacerbation 04/10/2024
Cardiac catheterization 04/16/2024: Left main: Short and unobstructed. LAD: D1 with long 80% mid stenosis. Mid LAD beyond D1 with 70% eccentric stenosis and long 70% mid to distal LAD stenosis. Circumflex: Mid circumflex with 40 to 50% stenosis.
OM 2 occluded at origin. OM 3 small. OM 4 with 60 to 70% proximal stenosis. RCA: 60% proximal stenosis, mid RCA with 60 to 70% stenosis, distal RCA somewhat ectatic supplying moderate caliber PDA and PL branch.
ECHO 04/11/24: EF 30-35%, global hypokinesis, mild cLVH, mild-moderate MR, mild-moderate AI, small pericardial effusion w/o evidence of hemodynamic compromise
Plan:
-s/p CABG x4 (DMITRY-LAD, GSV-D1, GSV-OM4, GSV-RPDA) 06/19/2024.
-Right apical pneumothorax improved by CXR 06/25. Remains with CT to suction
-continue coreg, cozaar.
-Continue diuresis. Cr 1.1
-Continue aspirin, Plavix, crestor
-Remains in sinus rhythm on review of telemetry
-Continue post op care, IS
-d/w nursing
Outpt cardiac meds:
Carvedilol 6.25 mg twice daily
Rosuvastatin 40 mg a day
Furosemide 40 mg daily
Losartan 12.5 mg daily
Potassium 20 meq daily
Progress Note - Waiter/Waitress Economy Class
Subjective
Date of Service: June 25, 2024
reports no significant pain or issues with breathing
Objective
Labs:
06/23/24 03:38
06/25/24 03:16
Labs
Hgb 11.7 g/dL (13.0-18.0) L 06/23/24 03:38
Hct 34.8 % (39.0-52.0) L 06/23/24 03:38
Plt Count 160 10^3/uL (130-400) 06/23/24 03:38
PT 16.7 Sec (11.4-14.6) H 06/19/24 15:23
INR 1.33 06/19/24 15:23
APTT 31.5 Sec (23.4-35.0) 06/19/24 15:23
Sodium 133 mmol/L (135-145) L 06/25/24 03:16
Potassium 4.2 mmol/L (3.5-5.1) 06/25/24 03:16
BUN 25 mg/dl (9-20) H 06/25/24 03:16
Creatinine 1.1 mg/dL (0.7-1.3) 06/25/24 03:16
Glucose 103 mg/dl (70-99) H 06/25/24 03:16
Vital Signs and I&O:
Vital Signs
Temp Pulse Resp BP Pulse Ox
97.7 F 68 16 112/53 94
06/25/24 07:35 06/25/24 08:41 06/25/24 08:13 06/25/24 08:41 06/25/24 07:56
Vital Signs
Temp Pulse Resp BP Pulse Ox
97.7 F 68 16 112/53 94
06/25/24 07:35 06/25/24 08:41 06/25/24 08:13 06/25/24 08:41 06/25/24 07:56
Intake & Output
06/23/24 06/24/24 06/25/24 06/26/24
07:59 07:59 07:59 07:59
Intake Total 530 / 530 500 / 500 790 / 790 250 / 250
Output Total 2830 / 2830 1735 / 1735 2030 / 2030 375 / 375
Balance -2300 / -2300 -1235 / -1235 -1240 / -1240 -125 / -125
Physical Exam
Physical Exam
GEN: No distress, awake, alert, oriented x3. sitting in chair
HEENT: supple, anicteric, mmm, eomi
LUNGS: CTA B/L, no wheezes
CV: Reg, S1/S2, no murmur
ABD: soft, BS+, NT/ND
EXT: No cyanosis, clubbing. 1+ edema of B/L LE
NEURO: Gross non-focal
SKIN: Warm, pink, dry. No rash. Sternotomy dressing c/d/i
[2024-06-25] MEDS: TORADOL 15 MG IV ×2 (10:11→21:06)
[2024-06-25] MEDS: LIDOCAINE 4% PATCH 1 PATCH TOPICAL (10:11)
--- NOTE | 2024-06-25 11:28 | CM ---
Reviewed chart. Met with Mr. Glover to review discharge plans. He states he feels well and is hoping he will be able to go home soon. He states he ambulated today and it felt okay. Prior to admission he resides with is Life Partner in a one
story home with three steps to enter. Prior to admission he was independent with ambulation and adls. Does not have any DME in the home. His Life partner works outside the home a few days a week. We reviewed a home visit by the Transitional Care
Nurse. He is agreeable to a home visit. Medical work-up in progress. The discharge plan is to return home with Life Partner and a home visit by the Transitional Care Nurse when medically stable.
--- NOTE | 2024-06-25 12:07 | PTCARENOTE ---
VS obtained, assessment stable. Pain controlled w/recent medication. OOB, lunch ordered.
[2024-06-25] MEDS: NEURONTIN 300 MG PO ×2 (16:09→21:06)
--- NOTE | 2024-06-25 16:19 | PTCARENOTE ---
VS obtained, assessment stable. Patient resting comfortably oob in chair, ambulating ad jana.
[2024-06-25] MEDS: CRESTOR 40 MG PO (17:56)
[2024-06-25] MEDS: ROXICODONE 7.5 MG PO (17:56)
--- NOTE | 2024-06-25 20:00 | PTCARENOTE ---
Assumed care of patient at 1900. Patient found oob in chair at time of assessment. Patient is AOx4, follows commands appropriately, moves all extremities. Lung sounds are diminished in the bases saO2 97% on RA, patient has one R lateral CT attached
to wall suction. Heart sounds are audible, patient is SR on the monitor, patient has normal palpable pulses and trace generalized anasarca. Patient has active BS throughout all four quadrants reports BM during day voiding in bathroom and urinal.
Patient has sternal incision with aquacell dressing that is CDI, R groin puncture approx with surg adhesive FARIHA ecchymotic, RLE incision approx with surg adhesive [employer]NAGER [employer]ING ecchymotic, CT wounds approx with suture [employer], R upper chest incision with 4x4
dressing CDI and R lateral chest incision CT wound with 4x4 dressing that is CDI. Patient has R AC PIV for intermittent infusion. VSS. Call aviles within reach.
[2024-06-26] VITALS (11 sets, daily range): BP systolic 94–124; BP diastolic 48–100; PULSE 70; O2SAT 96–98; BMI 39.1
--- NOTE | 2024-06-26 | PTCARENOTE ---
Patient reassessed. VSS. Given one time dose toradol for severe pain. CT dressing changed. Patient returned from chair to bed. SR/SB on the monitor. Call aviles within reach.
[2024-06-26 05:25] LABS: Hemoglobin 11.8 g/dL (13.0-18.0); Mean Corp Hgb Conc. 33.7 g/dL (33.0-37.0); Mean Corpuscular Hgb 30.8 pg (27.0-31.0); Mean Corpuscular Volume 91.4 fL (80.0-94.0); Mean Platelet Volume 10.6 fL (7.4-10.4); Platelet Count 200 10^3/uL (130-400); Red Blood Cell Count 3.83 10^6/uL (4.70-6.10); Red Cell Dist. Width 14.2 % (11.5-14.5); White Blood Cell Count 13.4 10^3/uL (4.8-10.8)
[2024-06-26 05:41] LABS: Blood Urea Nitrogen 38 mg/dl (9-20); Calcium 8.6 mg/dl (8.4-10.2); Carbon Dioxide 23 mmol/L (22-30); Chloride 98 mmol/L (98-107); Estimated Creatinine Clearance 69 ml/min; Glucose 110 mg/dl (70-99); Magnesium 2.6 mg/dl (1.6-2.3); Potassium 4.4 mmol/L (3.5-5.1); Sodium 132 mmol/L (135-145); eGFR 55.78
--- NOTE | 2024-06-26 05:59 | PTCARENOTE ---
Patient reassessed. VSS. Remains SR on the monitor. AM labs obtained. Patient provided self hygiene care. Call aviles within reach.
[2024-06-26] MEDS: TYLENOL 1000 MG PO ×3 (06:42→21:58)
--- NOTE | 2024-06-26 07:30 | PTCARENOTE ---
Assumed care of patient from [facility] shift lead RN . AAO x 3, SR on monitor. Room air 96%. IS to 1250. Chest tube clamped per MD order. No air leak or crepitus noted. Abdomen soft and non tender, passing urine w/o issue. Trace pedal edema
appreciated. Pulses palpable. Pain medication as needed.
--- NOTE | 2024-06-26 07:38 | W.PN.CT ---
Today's Communication / Plan
-
-pod #7
-R PTX appears resolved on my review. CT has been on -20 sxn wihtout air leak. Per Dr. Estrada, clamped CT at 6:30 am. Will get follow-up CXR in a few hrs
-Cr trended up - 1.4 today (from 1.1).
-pt has been diuresing well
-off O2 - 98% on RA
-encourage IS, OOB
Assessment / Plan
-
Assessment:
-S/P Median sternotomy/CABG x 4 (DMITRY to LAD, GSV to D1, GSV to OM4, GSV to RPDA)/ Endoscopic harvest/prep of RLE GSV, by Dr. Estrada, 06/19/24, pod#7
-Severe 3v CAD
-Severely dilated left atrium
-Moderately dilated right atrium
-Mid Asc. Aorta dilation (4.0 cm)
-Severe sessile atheroma @ distal aortic arch
-Moderate sessile atheroma @ descending aorta
-Mild-moderate AI
-Mild TR
-LVEF 50% per intraop REMI
-ICM
-Acute systolic CHF S/P intubated with VDRF
-Recent suspected PNA
-COPD
-Former tobacco abuse (40 pk/yr, quit 04/15/24)
-Chronic leukocytosis
-HTN
-HLD
-Prediabetes (A1C 5.8)
-Osteoarthritis
-S/P B/L hip replacement, 2020
-Acute postop blood loss/Anemia (stable without blood transfusion)
-Acute postop atelectasis
-Acute postop pulmonary insufficiency
-Acute postop hypovolemia with subsequent hypervolemia
-Acute postop hyponatremia, 133
-Acute postop hypermagnesemia, 2.6
-Acute postop right apical pneumothorax S/p New right pigtail chest tube placement @ bedside by Dr. Estrada/REFUGIO Forde, 06/22/24
Discussed patient care with: Nursing and Care Team
Subjective
Procedure
S/P Median sternotomy/CABG x 4 (DMITRY to LAD, GSV to D1, GSV to OM4, GSV to RPDA)/ Endoscopic harvest/prep of RLE GSV, by Dr. Estrada, 06/19/24
-
Date of Service: June 26, 2024
Objective Data
-
Lab Results
06/26/24 04:24
06/26/24 04:24
PT 16.7 Sec (11.4-14.6) H 06/19/24 15:23
INR 1.33 06/19/24 15:23
APTT 31.5 Sec (23.4-35.0) 06/19/24 15:23
Vital Signs
Vital Signs
Temp Pulse Resp BP Pulse Ox
97.9 F 60 20 123/57 96
06/26/24 03:00 06/26/24 05:00 06/26/24 03:00 06/26/24 04:25 06/26/24 04:25
CT Intake/Output/Weight
06/25/24 06/26/24 06/26/24
18:59 06:59 18:59
Intake Total 500 / 740 240 / 740
Output Total 1175 / 1470 295 / 1470
Balance -675 / -730 -55 / -730
SaO2: 96
Physical Exam
-
General: Awake and AOx3
Cardiovascular: Regular rate & rhythm, No Murmurs and No Rub
Respiratory: Clear
Sternum: Stable
Incision: Clean, Dry and Intact
Extremities: Edema +2
Abdomen: soft, nontender, nondistended, + BM
Data Reviewed
-
Lab Results: Results Reviewed
Medications: Active Meds Reviewed
Chest X-Ray: Report Reviewed and Image Reviewed
ECG: Report Reviewed and Image Reviewed
[2024-06-26] MEDS: VITAMIN C 500 MG PO (08:32)
[2024-06-26] MEDS: KCL 20 MEQ PO ×2 (08:32→20:03)
[2024-06-26] MEDS: NEURONTIN 300 MG PO ×3 (08:32→21:58)
[2024-06-26] MEDS: MUCINEX 600 MG PO ×2 (08:32→20:03)
[2024-06-26] MEDS: SENOKOT-S 1 TABLET PO ×2 (08:32→20:03)
[2024-06-26] MEDS: LASIX 40 MG IV (08:32)
[2024-06-26] MEDS: PACERONE 200 MG PO ×3 (08:32→21:57)
[2024-06-26] MEDS: LOW STRENGTH ASPIRIN 81 MG PO (08:32)
[2024-06-26] MEDS: MAGNESIUM OXIDE 500 MG PO ×2 (08:32→20:02)
[2024-06-26] MEDS: PLAVIX 75 MG PO (08:33)
[2024-06-26] MEDS: PROTONIX 40 MG PO (08:33)
[2024-06-26] MEDS: COZAAR 12.5 MG PO (08:33)
[2024-06-26] MEDS: LIDOCAINE 4% PATCH TOPICAL ×2 (08:33)
[2024-06-26] MEDS: COREG 6.25 MG PO ×2 (08:33→20:03)
[2024-06-26] MEDS: ROXICODONE 7.5 MG PO (08:39)
--- NOTE | 2024-06-26 13:41 | CM ---
Chart reviewed. Patient is independent of ADLS, lives with his significant other in a 1 [address], 4 ROBERTO, 0 DME. Plan is for the patient to return home with CT Transitional RN. CM to follow
[2024-06-26] MEDS: NSS IV (14:22)
--- NOTE | 2024-06-26 15:30 | PTCARENOTE ---
Pt received from [facility] at 1120. Pt amblated to new room, gait steady. Denies any pain or discomfort. Right chest tube intact on arrival but later pulled by Ysabel Guzman PAC. Right chest tube site dressing remains dry and intact. Pt oob ad jana,
ambulating in the room. No change in status from am assessment.
[2024-06-26] MEDS: CRESTOR 40 MG PO (17:04)
[2024-06-26] MEDS: ROXICODONE 5 MG PO (20:02)
--- NOTE | 2024-06-26 20:48 | PTCARENOTE ---
received patient sitting up in chair eating dinner. patient c/o pain where CT was taken out, Roxicodone po given as ordered. sternum Acuseal intact, CT sites FARIHA, reddened, no oozing. right leg groin and knee sites FARIHA, ecchymotic. lung bess
diminished on RA. I/S 1250. montior shows NSR,VSS.
--- NOTE | 2024-06-27 00:06 | PTCARENOTE ---
Assumed care of patient at 2300, patient is sitting oob in the chair, offers no complaints. Using spirometer as instructed, 98% on RA, decreased at the right base but no sob. Call aviles in reach.
[2024-06-27] MEDS: ROXICODONE 7.5 MG PO (03:10)
[2024-06-27 03:15] VITALS: BP 124/64
[2024-06-27 03:56] LABS: Blood Urea Nitrogen 31 mg/dl (9-20); Carbon Dioxide 27 mmol/L (22-30); Chloride 99 mmol/L (98-107); Estimated Creatinine Clearance 88 ml/min; Glucose 107 mg/dl (70-99); Potassium 4.7 mmol/L (3.5-5.1); Sodium 133 mmol/L (135-145); eGFR > 60.00
--- NOTE | 2024-06-27 03:58 | W.PN.CT ---
Addendum entered and electronically signed by Murray Estrada MD 06/27/24 09:43:
I saw and examined the patient.
The PA's note was reviewed and I agree with the note.
Comment:
Gene Adalberto - POD#8 s/p CABG x 4 - POC complicated by R apical PTX - now resolved
OK for D/C home today
Original Note:
Today's Communication / Plan
-
-pod #8
-no issues overnight
-R ptx resolved, check CXR this AM
-continue diuresis with bid Lasix, follow creatinine (1.1 today, down from 1.4 yesterday)
-encourage IS
-discharge planning
Assessment / Plan
-
Assessment:
-S/P Median sternotomy/CABG x 4 (DMITRY to LAD, GSV to D1, GSV to OM4, GSV to RPDA)/ Endoscopic harvest/prep of RLE GSV, by Dr. Estrada, 06/19/24, pod#8
-Severe 3v CAD
-Severely dilated left atrium
-Moderately dilated right atrium
-Mid Asc. Aorta dilation (4.0 cm)
-Severe sessile atheroma @ distal aortic arch
-Moderate sessile atheroma @ descending aorta
-Mild-moderate AI
-Mild TR
-LVEF 50% per intraop REMI
-ICM
-Acute systolic CHF S/P intubated with VDRF
-Recent suspected PNA
-COPD
-Former tobacco abuse (40 pk/yr, quit 04/15/24)
-Chronic leukocytosis
-HTN
-HLD
-Prediabetes (A1C 5.8)
-Osteoarthritis
-S/P B/L hip replacement, 2020
-Acute postop blood loss/Anemia (stable without blood transfusion)
-Acute postop atelectasis
-Acute postop pulmonary insufficiency
-Acute postop hypovolemia with subsequent hypervolemia
-Acute postop hyponatremia, 133
-Acute postop hypermagnesemia, 2.6
-Acute postop right apical pneumothorax S/p New right pigtail chest tube placement @ bedside by Dr. Estrada/REFUGIO Forde, 06/22/24
Subjective
Procedure
S/P Median sternotomy/CABG x 4 (DMITRY to LAD, GSV to D1, GSV to OM4, GSV to RPDA)/ Endoscopic harvest/prep of RLE GSV, by Dr. Estrada, 06/19/24
-
Date of Service: June 27, 2024
Objective Data
-
Lab Results
06/26/24 04:24
06/27/24 03:24
PT 16.7 Sec (11.4-14.6) H 06/19/24 15:23
INR 1.33 06/19/24 15:23
APTT 31.5 Sec (23.4-35.0) 06/19/24 15:23
Vital Signs
Vital Signs
Temp Pulse Resp BP Pulse Ox
97.8 F 71 18 121/57 99
06/27/24 03:13 06/26/24 23:00 06/27/24 03:13 06/26/24 22:56 06/27/24 03:13
CT Intake/Output/Weight
06/26/24 06/26/24 06/27/24
06:59 18:59 06:59
Intake Total 240 / 740 240 / 240
Output Total 295 / 1470 250 / 550 300 / 550
Balance -55 / -730 -10 / -310 -300 / -310
SaO2: 99
Physical Exam
-
General: Awake and AOx3
Cardiovascular: Regular rate & rhythm
Respiratory: Clear
Sternum: Stable
Incision: Dressing Intact
Extremities: No Edema
[2024-06-27] MEDS: TYLENOL 1000 MG PO ×2 (05:41→15:08)
[2024-06-27 06:00] VITALS: BMI 39.0
[2024-06-27 07:49] VITALS: BP 117/58
[2024-06-27] MEDS: PACERONE 200 MG PO ×2 (07:57→15:09)
[2024-06-27] MEDS: KCL 20 MEQ PO (07:57)
[2024-06-27] MEDS: PLAVIX 75 MG PO (07:57)
[2024-06-27] MEDS: NEURONTIN 300 MG PO ×2 (07:57→15:09)
[2024-06-27] MEDS: MUCINEX 600 MG PO (07:57)
[2024-06-27] MEDS: MAGNESIUM OXIDE 500 MG PO (07:57)
[2024-06-27] MEDS: COREG 6.25 MG PO (07:57)
[2024-06-27] MEDS: PROTONIX 40 MG PO (07:57)
[2024-06-27] MEDS: LOW STRENGTH ASPIRIN 81 MG PO (07:58)
[2024-06-27] MEDS: VITAMIN C 500 MG PO (07:58)
[2024-06-27] MEDS: COZAAR 12.5 MG PO (07:58)
[2024-06-27] MEDS: SENOKOT-S 1 TABLET PO (07:58)
[2024-06-27] MEDS: LIDOCAINE 4% PATCH 1 PATCH TOPICAL ×2 (07:59)
[2024-06-27] MEDS: ROXICODONE 5 MG PO (08:16)
--- NOTE | 2024-06-27 09:45 | W.PN.CARDCBS ---
Today's Communication / Plan
-
Cont ASA/Plavix
Cont Coreg/Losartan
Cont Crestor
PTX seems better
Impression / Plan
-
Primary Mechanical Pencils Assembler: CECIL Vizcarra
Impression:
Multivessel CAD
s/p CABG x 4 (DMITRY-LAD, GSV-D1, GSV-OM4, GSV-RPDA) 06/19/2024
Ischemic cardiomyopathy
Recent admission at w/ acute HF/flash pulm edema 04/10/2024
COPD
HTN
HLD
Tobacco use
FH of CAD
Suspected PNA/COPD exacerbation 04/10/2024
Cardiac catheterization 04/16/2024: Left main: Short and unobstructed. LAD: D1 with long 80% mid stenosis. Mid LAD beyond D1 with 70% eccentric stenosis and long 70% mid to distal LAD stenosis. Circumflex: Mid circumflex with 40 to 50% stenosis.
OM 2 occluded at origin. OM 3 small. OM 4 with 60 to 70% proximal stenosis. RCA: 60% proximal stenosis, mid RCA with 60 to 70% stenosis, distal RCA somewhat ectatic supplying moderate caliber PDA and PL branch.
ECHO 04/11/24: EF 30-35%, global hypokinesis, mild cLVH, mild-moderate MR, mild-moderate AI, small pericardial effusion w/o evidence of hemodynamic compromise
Plan:
-s/p CABG x4 (DMITRY-LAD, GSV-D1, GSV-OM4, GSV-RPDA) 06/19/2024.
-Right apical pneumothorax improved. CXR no PTX.
-continue coreg, cozaar.
-Continue aspirin, Plavix, crestor
-Remains in sinus rhythm on review of telemetry
-Continue post op care, IS
Outpt cardiac meds:
Carvedilol 6.25 mg twice daily
Rosuvastatin 40 mg a day
Furosemide 40 mg daily
Losartan 12.5 mg daily
Potassium 20 meq daily
Progress Note - Mechanical Pencils Assembler
Subjective
Date of Service: June 27, 2024
feels better.
Objective
Labs:
06/26/24 04:24
06/27/24 03:24
Labs
Hgb 11.8 g/dL (13.0-18.0) L 06/26/24 04:24
Hct 35.0 % (39.0-52.0) L 06/26/24 04:24
Plt Count 200 10^3/uL (130-400) D 06/26/24 04:24
PT 16.7 Sec (11.4-14.6) H 06/19/24 15:23
INR 1.33 06/19/24 15:23
APTT 31.5 Sec (23.4-35.0) 06/19/24 15:23
Sodium 133 mmol/L (135-145) L 06/27/24 03:24
Potassium 4.7 mmol/L (3.5-5.1) 06/27/24 03:24
BUN 31 mg/dl (9-20) H 06/27/24 03:24
Creatinine 1.1 mg/dL (0.7-1.3) 06/27/24 03:24
Glucose 107 mg/dl (70-99) H 06/27/24 03:24
Vital Signs and I&O:
Vital Signs
Temp Pulse Resp BP Pulse Ox
97.4 F 70 18 117/58 99
06/27/24 07:47 06/27/24 08:00 06/27/24 07:47 06/27/24 07:49 06/27/24 07:47
Vital Signs
Temp Pulse Resp BP Pulse Ox
97.4 F 70 18 117/58 99
06/27/24 07:47 06/27/24 08:00 06/27/24 07:47 06/27/24 07:49 06/27/24 07:47
Intake & Output
06/25/24 06/26/24 06/27/24 06/28/24
06:59 06:59 06:59 06:59
Intake Total 790 / 790 740 / 740 240 / 240 400 / 400
Output Total 1680 / 2280 1470 / 1470 1150 / 1150
Balance -890 / -1490 -730 / -730 -910 / -910 400 / 400
Physical Exam
Physical Exam
GEN: No distress, awake, Ox3
HEENT: supple, anicteric, mmm
LUNGS: CTA, no wheezes/rales
CV: Reg, S1/S2, 1/6 syst LSB, no rub
ABD: soft, BS+, NT/ND
EXT: No edema
NEURO: Gross non-focal
SKIN: No rash
[2024-06-27 11:46] VITALS: BP 119/50
[2024-06-27] MEDS: NSS IV (13:47)
--- NOTE | 2024-06-27 14:36 | W.DCSUMMARY ---
Discharge Summary
Discharge Data
Date of Admission: 06/19/24
Date of Discharge: 06/27/24
-
Pending Results: No
Hospital Course
Primary care physician: None
Outpatient animal behaviourist: Dr. Corona
Inpatient consultants: Cardiology, Pulmonary Intensivists
Procedures:
Ordered by description x 4, left internal mammary artery to left anterior descending, saphenous vein graft to posterior descending artery, saphenous vein graft to diagonal, saphenous vein graft to obtuse marginal
Primary Diagnosis:
Multivessel coronary artery disease
Secondary Diagnoses:
Expected acute postoperative blood loss anemia
Acute postoperative atelectasis
Acute postoperative hyponatremia
Acute postoperative pneumothorax requiring chest tube placement
Severely dilated left atrium, moderately dilated right atrium
Mild ascending aortic dilation 4.0 cm
Severe sessile atheroma distal aortic arch
Moderate sessile atheroma descending aorta
Mild to moderate aortic insufficiency
Mild tricuspid regurgitation
Ischemic cardiomyopathy
Acute systolic congestive heart failure
Pneumonia
Chronic obstructive pulmonary disease
History of tobacco abuse
Hypertension
Hyperlipidemia
Prediabetes
Osteoarthritis status post bilateral total hip arthroplasty
HPI: This patient is a 63-year-old gentleman with past medical history of COPD, history of COVID-19, hypertension, hyperlipidemia, tobacco abuse, CHF. He was recently mated for progressive worsening shortness of breath. He was found to have a
newly reduced ejection fraction which required an ischemic workup revealing multivessel coronary artery disease. He has a chronic leukocytosis with increased absolute monocytes.
Since discharge has been doing well. He still sleeps in a recliner secondary to orthopnea. He denies any significant shortness of breath, dyspnea on exertion, chest pains, palpitations.
I had a greater than 60-minute conversation with Mr. He stands and we discussed surgical pathology proposed bypass operation as well as associated procedural risks. All question were answered and he agrees to proceed.
Hospital course: Patient was admitted electively and underwent bypass surgery by Dr. Murray Estrada on June 19, 2024. Please refer to separately dictated operative report for complete details. Postoperatively the patient was transferred to the
intensive care unit on low-dose dobutamine and Levophed drips. He was extubated per usual protocol at 5:40 PM that evening.
Postoperative day #1: Levophed was weaned off overnight. Salgado was removed. DuoNebs and Mucinex was started for chronic cough. Metoprolol was titrated to effect. Patient began ambulating with PT and OT.
Postoperative day #2: Right IJ central line was removed. Patient was diuresed with IV Lasix. Moderate right pneumothorax noted with [address] suction increased to -40 cm. Mediastinal chest tubes removed. Patient was started on home
Coreg. Repeat chest x-ray initially concerning for need of additional pigtail placement. Pneumothorax subsequently resolved. New
Postoperative day #3: Moderate right pneumothorax has recurred. Patient was referred for IR pigtail. Patient was noted to be too uncomfortable to hold still for the procedure per interventional radiology. Subsequent bedside pigtail was inserted
by Dr. Estrada.
Postoperative day #4: Bilateral pleural Aj drains were removed. Pigtail was maintained at -20 suction.
Postoperative day #5: Chest tube was removed. Chest x-ray following showed increased pneumothorax. IR was again consulted for pigtail catheter placement. Pigtail was inserted and placed to suction with improvement of pneumothorax.
Postoperative day #6: Chest tube maintained to suction. No other new changes.
Postoperative day #7: Chest tube was removed. Subsequent chest x-rays showed resolved versus tiny apical pneumothorax.
Postoperative day #8: Chest x-ray is stable. Patient was cleared for discharge to home.
Discharge Plan
-
Patient Disposition: Home (Routine Discharge)
Discharge Diagnosis/Procedures: -Status post median sternotomy/coronary artery bypass grafting x 4 (left internal thoracic artery to left anterior descending, greater saphenous vein to first diagonal, greater saphenous vein to obtuse marginal for,
greater saphenous vein to right posterior descending artery)/ Endoscopic harvest/prep of right lower extremity saphenous vein, by Dr. Estrada, 06/19/24
-Severe triple-vessel coronary artery disease
-Severely dilated left atrium
-Moderately dilated right atrium
-Mid ascending aorta dilation (4.0 cm)
-Severe sessile atheroma @ distal aortic arch
-Moderate sessile atheroma @ descending aorta
-Mild-moderate aortic insufficiency
-Mild tricuspid regurgitation
-LVEF 50% per intraoperative transesophageal echocardiogram
-Ischemic cardiomyopathy
-Acute systolic congestive heart failure
-Recent suspected pneumonia
-Chronic obstructive pulmonary disease
-Former tobacco abuse (40 pack years, quit 04/15/24)
-Chronic leukocytosis
-Hypertension
-Hyperlipidemia
-Prediabetes (A1C 5.8)
-Osteoarthritis
-Status post bilateral hip replacement, 2020
-Acute postoperative blood loss/Anemia (stable without blood transfusion)
-Acute postoperative atelectasis
-Acute postoperative pulmonary insufficiency
-Acute postoperative hypovolemia with subsequent hypervolemia
-Acute postoperative hyponatremia, 133
-Acute postoperative hypermagnesemia, 2.6
-Acute postoperative right apical pneumothorax requiring right pigtail chest tube placement
Diet: Low Cholesterol and Low Sodium
Activity: No strenuous activity
Driving Restrictions: Not until seen by your Dr
Bathing Restrictions: OK to Shower
Other Services: Cardiac Rehab
Specialty Instructions: Weigh Daily- Call MD for wt gain/loss 3 lbs overnight/5 lbs in 1 week
Referrals:
CT Transitional Care Nurse [Outside] (The Cardiothoracic Transitional Care Nurse will call you to set up a visit in 1-2 days.)
[facility] [Outside] - 07/31/24 1:00 pm
(Cardiac Rehab Orientation appointment is on July 31 at 1pm.
The Cardiac Rehab gym is located on the first floor of the [facility].)
Jodi Motta CRNP [Specified Professional Personl] - 08/04/24 10:20 am
Murray Estrada MD [Active] - 07/21/24 1:30 pm
UNKNOWN - PT NOT,INTERVIEWE [Family Provider] -
Prescriptions:
New
acetaminophen 325 mg Tablet
650 mg PO Q4HPRN PRN (Reason: mild pain,headache,temp >101F ) Qty: 0 0RF
clopidogrel 75 mg Tablet
75 mg PO DAILY 365 Days Qty: 30 2RF
oxycodone 5 mg Tablet
5 mg PO Q6HPRN PRN (Reason: severe pain) Qty: 28 0RF
Continued
furosemide [Lasix] 40 mg tablet
40 mg PO DAILY
carvedilol 6.25 mg tablet
6.25 mg PO BID
losartan 25 mg tablet
12.5 mg PO DAILY
aspirin 81 mg tablet,chewable
81 mg PO DAILY
rosuvastatin 40 mg tablet
40 mg PO QPM
potassium chloride 20 mEq tablet extended release
20 meq PO DAILY
Discharge Orders:
Discharge Patient (As Directed); Ordered 06/27/24
Ordered By: Sourav Oscar
Care Plan Goals
Care Plan Goals:
Problem: Readiness for enhanced knowledge related to diagnosis and treatment plan
Goal: Understand your diagnosis and treatment plan needs, including medications if applicable.
Instructions: Know your diagnosis, underlying causes and treatment plan options, including medications if applicable. Consult with your health care team to learn about your diagnosis and treatment plan, including medications if applicable.
Discharge Date and Time
Print Language: MICRONESIAN
--- NOTE | 2024-06-27 15:05 | PTCARENOTE ---
Confirmed w/ CT TERENCE Oscar that pt will not go home on amiodarone or gabapentin.
[2024-06-27 15:09] VITALS: BP 109/45
--- NOTE | 2024-06-27 15:50 | PTCARENOTE ---
IV and tele removed. Discharge instructions reviewed w/ pt and friend. Verbalizes understanding. Escorted via WC and staff assist to home.
== END 2024-06-27 15:51 | disposition home or self-care (01) | DRG 235 ==
LOC: IVU 04:53
PROVIDERS: Anesthesiology; Clinical Nurse Specialist Acute Care; Nurse Practitioner; Physician Assistant Medical; Radiology Vascular & Interventional Radiology; ADMITTING PHYSICIAN Thoracic Surgery (Cardiothoracic Vascular Surgery); CONSULT PHYSICIAN Internal Medicine Critical Care Medicine
PROC: B24BZZ4 Ultrasonography of Heart with Aorta, Transesophageal (ICD-10-PCS; 2024-06-19)
PROC: 02100ZC Bypass Coronary Artery, One Artery from Thoracic Artery, Open Approach (ICD-10-PCS; 2024-06-19)
PROC: 5A1935Z Respiratory Ventilation, Less than 24 Consecutive Hours (ICD-10-PCS; 2024-06-19)
PROC: 021209W Bypass Coronary Artery, Three Arteries from Aorta with Autologous Venous Tissue, Open Approach (ICD-10-PCS; 2024-06-19)
PROC: 06BP4ZZ Excision of Right Saphenous Vein, Percutaneous Endoscopic Approach (ICD-10-PCS; 2024-06-19)
PROC: 0W9930Z Drainage of Right Pleural Cavity with Drainage Device, Percutaneous Approach (ICD-10-PCS; 2024-06-22)
DX: I25.10 Atherosclerotic heart disease of native coronary artery without angina pectoris (principal); I50.21 Acute systolic (congestive) heart failure; J18.9 Pneumonia, unspecified organism; J95.2 Acute pulmonary insufficiency following nonthoracic surgery; I31.39 Other pericardial effusion (noninflammatory); I97.791 Other intraoperative cardiac functional disturbances during other surgery; J44.0 Chronic obstructive pulmonary disease with (acute) lower respiratory infection; D62 Acute posthemorrhagic anemia; J98.11 Atelectasis; E87.1 Hypo-osmolality and hyponatremia; J95.811 Postprocedural pneumothorax; I08.0 Rheumatic disorders of both mitral and aortic valves; I70.0 Atherosclerosis of aorta; I48.91 Unspecified atrial fibrillation; I11.0 Hypertensive heart disease with heart failure; F17.200 Nicotine dependence, unspecified, uncomplicated; Z79.82 Long term (current) use of aspirin; Z79.899 Other long term (current) drug therapy; E78.00 Pure hypercholesterolemia, unspecified; I77.810 Thoracic aortic ectasia; I25.5 Ischemic cardiomyopathy; R73.03 Prediabetes; Z96.643 Presence of artificial hip joint, bilateral; M19.90 Unspecified osteoarthritis, unspecified site; Z86.16 Personal history of COVID-19; E86.1 Hypovolemia; E83.41 Hypermagnesemia; I42.8 Other cardiomyopathies; Y83.2 Surgical operation with anastomosis, bypass or graft as the cause of abnormal reaction of the patient, or of later complication, without mention of misadventure at the time of the procedure
CPT/HCPCS: 32557; 36415; 71045; 80048; 80053; 81003; 81015; 82248; 82330; 82565; 82805; 82947; 82962; 83036; 83735; 84132; 84302; 84436; 84443; 84520; 85014; 85018; 85025; 85027; 85049; 85610; 85730; 86803; 86850; 86900; 86901; 86920; 87070; 87077; 87086; 87186; 93005; 93312; 93320; 93325; 94002; 99152; 99153; 99406; C1729; C1769

== ENCOUNTER 2024-08-04 09:30 | Outpatient (RCR) | payer MEDICARE, SELFPAY | END 2024-08-04 23:59 | disposition home or self-care (01) | LOC: CRHB 09:30 | PROVIDERS: ATTENDING PHYSICIAN Internal Medicine Cardiovascular Disease | DX: Z95.1 Presence of aortocoronary bypass graft (principal) | CPT/HCPCS: G0422; G0423 ==